=== PATIENT | female | born 1950 | race Caucasian/White ===

== ENCOUNTER → 2016-11-30 | Outpatient (CLI) | payer MEDICARE ==
[2016-11-30 20:00] LABS: MEAN CORPUSCULAR HEMOGLOBIN 25.4 pg (27.0-33.0); MEAN CORPUSCULAR HGB CONC 31.2 g/dl (32.0-36.5); MEAN CORPUSCULAR VOLUME 81.4 fl (80.0-96.0); PLATELET COUNT, AUTOMATED 188 10^3/uL (150-450); WHITE BLOOD COUNT 7.3 10^3/uL (4.0-10.0)
[2016-11-30 20:03] LABS: RED CELL DISTRIBUTION WIDTH 21.5 % (11.5-14.5)
== END ==
LOC: M LRY 16:00
PROVIDERS: ATTEND Internal Medicine Cardiovascular Disease
DX: D64.9 Anemia, unspecified (principal)

== ENCOUNTER 2017-06-10 01:21 | Emergency (ER) | payer MEDICARE ==
[2017-06-10] MEDS ORDERED: NITROGLYCERIN 0.4 MG SUBL TABLET SL (02:15)
[2017-06-10 02:22] LABS: BASO % 0.4 % (0.0-1.0); EOS # 0.1 10^3/uL (0.0-0.50); EOS % 0.8 % (0.0-3.0); HEMATOCRIT 43.7 % (36.0-47.0); IMMATURE GRANULOCYTE % 0.4 % (0-3.0); LYMPH # 1.4 10^3/uL (1.5-4.5); LYMPH % 16.3 % (24.0-44.0); MEAN CORPUSCULAR HEMOGLOBIN 29.4 pg (27.0-33.0); MEAN CORPUSCULAR VOLUME 91.6 fl (80.0-96.0); MONO # 0.6 10^3/uL (0.0-0.8); MONO % 6.7 % (0.0-5.0); NEUTROPHILS # 6.3 10^3/uL (1.8-7.7); NEUTROPHILS % 75.4 % (36.0-66.0); PLATELET COUNT, AUTOMATED 171 10^3/uL (150-450); RED BLOOD COUNT 4.77 10^6/uL (4.00-5.40); RED CELL DISTRIBUTION WIDTH 12.8 % (11.5-14.5); VENOUS BASE EXCESS -4.8 (-2.0-2.0); VENOUS HCO3 25.3 MEQ/L (23.0-27.0); VENOUS O2 SATURATION 60.3 % (60.0-80.0); VENOUS PARTIAL PRESSURE O2 39.3 mmHg (30.0-50.0); VENOUS PH 7.176 UNITS (7.330-7.430); VENOUS STANDARD HCO3 19.7 MEQ/L; VENOUS TOTAL CO2 27.5 MEQ/L (24.0-28.0); WHITE BLOOD COUNT 8.4 10^3/uL (4.0-10.0)
[2017-06-10 02:39] LABS: ANION GAP 8 MEQ/L (8-16); BLOOD UREA NITROGEN 23 MG/DL (7-18); CALCIUM LEVEL 9.1 MG/DL (8.8-10.2); CARBON DIOXIDE LEVEL 29 MEQ/L (21-32); CHLORIDE LEVEL 106 MEQ/L (98-107); CK-MB VALUE MASS < 1.0 NG/ML (<3.6); CPK CREATINE PHOSPHOKINASE 30 U/L (26-192); CREATININE FOR GFR 0.97 MG/DL (0.55-1.30); GLOMERULAR FILTRATION RATE > 60.0 (>45); GLUCOSE, FASTING 178 MG/DL (70-100); MB/CK RELATIVE INDEX 3.33 (< OR =4); POTASSIUM SERUM 4.3 MEQ/L (3.5-5.1); SODIUM LEVEL 143 MEQ/L (136-145); TROPONIN I < 0.02 NG/ML (< 0.10)
[2017-06-10 03:25] LABS: ABG BASE EXCESS -0.6 (-2.0-2.0); ABG HCO3 22.3 MEQ/L (22.0-26.0); ABG O2 SATURATION 96.9 % (95.0-99.0); ABG PARTIAL PRESSURE CO2 31.9 mmHg (35.0-45.0); ABG PARTIAL PRESSURE O2 82.9 mmHg (75.0-100.0); ABG TOTAL CO2 23.3 MEQ/L (23.0-31.0); ABG pH (ARTERIAL) 7.462 UNITS (7.350-7.450)
[2017-06-10] MEDS: GI COCKTAIL 50ML BTL(HYOSCYAMINE/MAALOX/LIDOCAINE VISCOUS)(1:3:1) PO (04:30)
[2017-06-10] MEDS: ONDANSETRON 4MG/2ML VIAL (J2405) IV (05:11)
[2017-06-10 08:52] LABS: TROPONIN I 0.04 NG/ML (< 0.10)
[2017-06-10 08:53] LABS: CK-MB VALUE MASS < 1.0 NG/ML (<3.6); CPK CREATINE PHOSPHOKINASE 28 U/L (26-192); MB/CK RELATIVE INDEX 3.57 (< OR =4)
== END 2017-06-10 10:45 | disposition home or self-care (01) ==
LOC: M ED 01:21
DX: R07.89 Other chest pain (principal); I48.91 Unspecified atrial fibrillation; Z82.49 Family history of ischemic heart disease and other diseases of the circulatory system; Z79.899 Other long term (current) drug therapy; Z79.890 Hormone replacement therapy
CPT/HCPCS: J2405

== ENCOUNTER → 2017-07-12 | Outpatient (CLI) | payer MEDICARE ==
[2017-07-12 17:33] LABS: ANION GAP 8 MEQ/L (8-16); BLOOD UREA NITROGEN 19 MG/DL (7-18); CALCIUM LEVEL 8.9 MG/DL (8.8-10.2); CARBON DIOXIDE LEVEL 25 MEQ/L (21-32); CHLORIDE LEVEL 106 MEQ/L (98-107); CREATININE FOR GFR 0.77 MG/DL (0.55-1.30); GLOMERULAR FILTRATION RATE > 60.0 (>45); GLUCOSE, FASTING 103 MG/DL (70-100); POTASSIUM SERUM 4.5 MEQ/L (3.5-5.1); SODIUM LEVEL 139 MEQ/L (136-145)
[2017-07-12 17:37] LABS: BASO # 0.1 10^3/uL (0.0-0.2); BASO % 0.7 % (0.0-1.0); EOS # 0.2 10^3/uL (0.0-0.50); EOS % 2.1 % (0.0-3.0); HEMATOCRIT 43.6 % (36.0-47.0); HEMOGLOBIN 14.1 g/dl (12.0-15.5); IMMATURE GRANULOCYTE % 0.3 % (0-3.0); LYMPH # 1.6 10^3/uL (1.5-4.5); LYMPH % 21.2 % (24.0-44.0); MEAN CORPUSCULAR HEMOGLOBIN 29.4 pg (27.0-33.0); MEAN CORPUSCULAR HGB CONC 32.3 g/dl (32.0-36.5); MEAN CORPUSCULAR VOLUME 90.8 fl (80.0-96.0); MONO # 0.9 10^3/uL (0.0-0.8); MONO % 11.9 % (0.0-5.0); NEUTROPHILS # 4.8 10^3/uL (1.8-7.7); NEUTROPHILS % 63.8 % (36.0-66.0); PLATELET COUNT, AUTOMATED 210 10^3/uL (150-450); RED CELL DISTRIBUTION WIDTH 13.4 % (11.5-14.5); WHITE BLOOD COUNT 7.5 10^3/uL (4.0-10.0)
== END ==
LOC: M LRY 10:48
DX: R07.9 Chest pain, unspecified (principal); I50.30 Unspecified diastolic (congestive) heart failure; I48.1 Persistent atrial fibrillation
CPT/HCPCS: 80048

== ENCOUNTER 2018-12-17 11:57 | Inpatient (IN) | payer MEDICARE ==
[2018-12-17] VITALS (8 sets, daily range): BP systolic 92–145; BP diastolic 58–88
[~2018-12-17] VITALS: Ht 152.4 cm; Wt 73.2 kg
[~2018-12-17 11:57] MED LIST: LEVO88TA3; LISI10TA4; METF-791; METO1TAB7; OXYB5TAB10; PRAV20TA2; WARF-18
[2018-12-17] MEDS ORDERED: NS 1,000 ML IV SCH (12:46)
[2018-12-17] MEDS ORDERED: METOPROLOL 5 MG/5 ML VIAL IV STA (12:50)
[2018-12-17] MEDS ORDERED: NS 500 ML IV ONE (13:00)
[2018-12-17] MEDS ORDERED: METOPROLOL TART 50 MG TAB PO ONE (13:00)
[2018-12-17] MEDS ORDERED: PANTOPRAZOLE 40MG INJ (PROTONIX) (C9113) IV ONE (13:00)
[2018-12-17] MEDS ORDERED: ONDANSETRON 4MG/2ML VIAL (J2405) IV ONE (13:00)
[2018-12-17 13:35] LABS: BASO % 0.3 % (0.0-1.0); EOS % 0.2 % (0.0-3.0); HEMATOCRIT 21.3 % (36.0-47.0); LYMPH # 0.9 10^3/uL (1.5-5.0); LYMPH % 8.5 % (24.0-44.0); MEAN CORPUSCULAR HGB CONC 31.5 g/dl (32.0-36.5); MEAN CORPUSCULAR VOLUME 95.5 fl (80.0-96.0); MONO # 0.7 10^3/uL (0.0-0.8); MONO % 6.4 % (0.0-5.0); NEUTROPHILS # 8.6 10^3/uL (1.5-8.5); NEUTROPHILS % 83.6 % (36.0-66.0); PLATELET COUNT, AUTOMATED 169 10^3/uL (150-450); RED BLOOD COUNT 2.23 10^6/uL (4.00-5.40); WHITE BLOOD COUNT 10.3 10^3/uL (4.0-10.0)
--- NOTE | 2018-12-17 13:46 | REP ---
Abdomen series: Four views. History: Abdomen pain. Findings: Chest radiograph demonstrates median sternotomy wires, a cardiac valve replacement, and a left atrial appendage clamp overlying the heart. The patient is rotated somewhat to the left. No free subdiaphragmatic air is seen. This is a supine radiograph however. Supine and cross-table lateral views of the abdomen demonstrate moderate stool in the region of the rectum. There is some vascular calcification. There are surgical clips in the right lower abdomen. Small and large bowel loops are normal in caliber. Cross-table lateral view of the upper and lower abdomen shows no evidence of free air. Impression: Moderate stool in the rectum. Otherwise unremarkable bowel gas pattern. Vascular calcification. Electronically Signed by Aditya Santiago MD 12/17/2018 01:38 P
[2018-12-17 13:50] LABS: INR 1.14; PROTHROMBIN TIME 14.3 SECONDS (11.8-14.0)
[2018-12-17 13:55] LABS: HEMOGLOBIN 6.7 g/dl (12.0-15.5)
[2018-12-17 14:12] LABS: ALBUMIN 2.6 GM/DL (3.2-5.2); ALT/SGPT 11 U/L (12-78); BILIRUBIN,DIRECT < 0.1 MG/DL (0.0-0.2); BILIRUBIN,TOTAL 0.2 MG/DL (0.2-1.0); BLOOD UREA NITROGEN 23 MG/DL (7-18); CALCIUM LEVEL 8.7 MG/DL (8.8-10.2); CARBON DIOXIDE LEVEL 26 MEQ/L (21-32); CHLORIDE LEVEL 105 MEQ/L (98-107); CREATININE FOR GFR 0.92 MG/DL (0.55-1.30); GLOMERULAR FILTRATION RATE > 60.0 (>39); GLUCOSE, FASTING 165 MG/DL (70-100); LIPASE 80 U/L (73-393); POTASSIUM SERUM 4.6 MEQ/L (3.5-5.1); SODIUM LEVEL 138 MEQ/L (136-145); TOTAL PROTEIN 6.3 GM/DL (6.4-8.2)
[2018-12-17] MEDS ORDERED: POTA10TA17 PO (14:29)
[2018-12-17] MEDS ORDERED: METO1TAB33 PO (14:29)
[2018-12-17] MEDS ORDERED: LEVO88TA24 PO (14:29)
[2018-12-17] MEDS ORDERED: LISI10TA4 PO (14:29)
[2018-12-17] MEDS ORDERED: ATOR40TA75 PO (14:29)
[2018-12-17] MEDS ORDERED: METO1TAB7 PO (14:29)
[2018-12-17] MEDS ORDERED: PATIENT COMMENT (14:29)
[2018-12-17] MEDS ORDERED: FURO40TA2 PO (14:29)
[2018-12-17] MEDS ORDERED: BUSP5TA PO (14:29)
[2018-12-17] MEDS ORDERED: WARF-18 PO (14:29)
[2018-12-17] MEDS ORDERED: METF-791 PO (14:29)
[2018-12-17] MEDS ORDERED: ASPI81TA26 PO (14:29)
[2018-12-17] MEDS ORDERED: GLUCAGON FOR INJ 1 MG VIAL (J1610) SC PRN (16:00)
[2018-12-17] MEDS ORDERED: DEXTROSE 50% 50 ML SYRINGE IV PRN (16:00)
[2018-12-17] MEDS ORDERED: GLUCOSE 4 GM CHEW TABLET PO PRN (16:00)
--- NOTE | 2018-12-17 16:52 | HPE ---
DATE OF ADMISSION: 12/17/2018 PRINCIPAL DIAGNOSIS: Rectal bleeding, atrial fibrillation, rapid ventricular response. PRIMARY CARE PROVIDER: [facility]. VALVE SEATER OPERATOR: Dr. Cruz HISTORY: Moon Matias is a 68-year-old patient of [facility]. She stopped talking all of her medications several weeks ago claiming that they would not be refilled unless she had some labs done that she could not afford. She therefore stopped her anticoagulant, diabetes, and blood pressure medications. She presents to the emergency room with rectal bleeding so she has been bleeding for a few days. She is significantly anemic with a hemoglobin of 6 and denies abdominal pain. She says she feels weak and light headed and short of breath when she exerts herself. When in the emergency room she has atrial fibrillation with rapid ventricular response. PAST MEDICAL HISTORY: Atrial fibrillation followed by Dr. Cruz from cardiology, hypertension, type 2 diabetes, history of hypothyroidism, chronic anxiety. HOME MEDICATIONS: Currently not taking any, previously was aspirin 81 mg daily, atorvastatin 40 mg daily, BuSpar 5 mg twice a day, furosemide 40 mg daily, levothyroxine 88 mcg daily, lisinopril 10 mg daily, metformin ER 1000 mg daily, Toprol XL 100 mg in the morning and 50 mg at bedtime, potassium chloride 10 mEq daily, warfarin 2.5 mg 6 days a week. ALLERGIES: None known. CODE STATUS: She is DO NOT RESUSCITATE DO NOT INTUBATE. She thought she had a copy of this scanned into the hospital record but there is none available. She is going to get a copy of her MOLST form brought in. REVIEW OF SYSTEMS: No abdominal pain, fevers or chills, chest pain, orthopnea, epistaxis, urinary bleeding. PHYSICAL EXAMINATION: 102/63, pulse 125, respiratory 18, 100% Oxygen saturation on room air. General: Awake, conversant in no distress. HEENT: Pupils equal round and active light. Oropharynx is benign. NECK: No masses. HEART: Irregular rate and rhythm, tachycardiac 120-140, 1/6 systolic ejection murmur. ABDOMEN: Soft and nontender. There are no masses. RECTAL EXAM: Showed laron blood per ER staff. EXTREMITIES: Moves arms and legs with equal strength. LABS: White count 10.3, hemoglobin 6.7, MCV 95, platelets 169, sodium 138, potassium 4.6, BUN 23, creatinine 0.9, glucose 165, INR 1.1. Abdominal x-ray non-revealing. EKG showed atrial fibrillation/flutter rate 150. IMPRESSION: 1. Atrial fibrillation/flutter rapid ventricular response secondary to noncompliance with her medications. She will be admitted to the PCU bed and put on telemetry. IV by mouth with metoprolol was been ordered. Hold anticoagulant in face of the rectal bleeding. Serial enzymes have been ordered to rule out stress induced myocardial ischemia. Echocardiogram has been ordered. Consider consulting Dr. Cruz who is her outpatient hr shared services consultant. 2. Rectal bleeding. Consultation placed for gastroenterology. Hold anticoagulant for now. She is being transfused 2 units of packed red blood cells every 6 hours CBC have been ordered. Last colonoscopy was approximately 10 years ago done at [facility]. 3. Type 2 diabetes, sliding scale insulin coverage. Hemoglobin was ordered. Recommend restarting Metformin upon discharge. 4. Hypertensive heart disease. Blood pressure is a little low right now, probably from the rectal bleeding. She received metoprolol in the emergency room for rate control. Hold Lisinopril for now. 5. Hyperlipidemia. Restart her statin therapy. 6. Chronic anxiety. We will hold off on the BuSpar for now. She is not showing any significant anxiety at this time. 7. Noncompliance. Risks of non-compliance with her medical therapy were discussed and she understood this. 8. Hypothyroidism. Free T4, TSH ordered. Restart Levothyroxine 88 mcg daily. CODE STATUS: Per her request she is DO NOT RESUSCITATE DO NOT INTUBATE and she will bring a copy of her MOLST form says her sister has it at home.
[2018-12-17] MEDS: METOPROLOL TART 25 MG TABLET PO SCH ×2 (18:27→23:36)
[2018-12-17 18:29] LABS: FERRITIN 120 NG/ML (8-252); FOLATE 10.2 NG/ML; FREE T4 0.89 NG/DL (0.76-1.46); IRON (FE) 44 UG/DL (50-170); PERCENT SATURATION 16.7 % (13.2-45.0); TOTAL IRON BINDING CAPACITY 264 UG/DL (250-450); VITAMIN B12 LEVEL 486 PG/ML
[2018-12-17] MEDS: HumaLOG INSULIN (NovoLOG) PER UNIT SC SCH ×2 (19:39→20:56)
--- NOTE | 2018-12-17 20:22 | ECGEPIP ---
[facility] - ED Test Date: 2018-12-17 Pat Name: RACIEL FREEMAN Department: Room: - Gender: Female Wind Project Manager: TAV[place] : 1950 Requested By: Camron Serna Order Number: [id number] Reading MD: Camron Wallis Measurements Intervals [place] Rate: 139 P: ID: 0 QRS: 53 QRSD: 86 T: -42 QT: 224 QTc: 341 Interpretive Statements ATRIAL FIBRILLATION WITH RAPID VENTRICULAR RESPONSE NONSPECIFIC ST & T-WAVE ABNORMALITY RATE CHANGE COMPARED TO 06/10/17 Electronically Signed on 12-17-2018 20:21:49 EST by Camron Wallis
[2018-12-17 21:32] LABS: HEMATOCRIT 27.2 % (36.0-47.0); HEMOGLOBIN 8.8 g/dl (12.0-15.5); MEAN CORPUSCULAR HEMOGLOBIN 30.1 pg (27.0-33.0); MEAN CORPUSCULAR HGB CONC 32.4 g/dl (32.0-36.5); MEAN CORPUSCULAR VOLUME 93.2 fl (80.0-96.0); PLATELET COUNT, AUTOMATED 184 10^3/uL (150-450); RED BLOOD COUNT 2.92 10^6/uL (4.00-5.40); WHITE BLOOD COUNT 11.8 10^3/uL (4.0-10.0)
[2018-12-17 21:56] LABS: CK-MB VALUE MASS < 1.0 NG/ML (<3.6); CPK CREATINE PHOSPHOKINASE 15 U/L (26-192); MB/CK RELATIVE INDEX 6.67 (< OR =4); TROPONIN I 0.03 NG/ML (< 0.10)
--- NOTE | 2018-12-17 23:13 | CR.PDOC ---
General Date of Consultation: Dec 17, 2018 Referring Provider: Jairo Anderson MD Attending Physician: SHABANA BECKER MD Consultation Primary physician/ hospitalist: Dr. Anderson. Reason for consult: Rectal bleeding. HPI: 68-year-old female patient with HTN, DM type 2, hypothyroidism, atrial fibrillation on anticoagulation with warfarin (ran out of medication and not taking it for past 2 weeks, followed by Dr. Cruz), presented to ER for complaints of rectal bleeding. GI was consulted for the same. Patient reports the symptoms started last Saturday, when she had atleast two large bloody bowel movement which stopped by Saturday and then had another episodes today in morning. Patient reports having minimal abdominal discomfort prior to bowel movements. Patient reports noticing profuse bleeding with blood clots. Due to felling very weak patient called EMS and came to ER. Patient reports her baseline bowel habits include sometimes hard stools every 2- 3 days. As patient recently ran out of medication Coumadin, she started taking aspiring 81 mg since last two weeks which she stopped since Saturday when she had bleeding. Pertinent negative GI symptoms: Patient denies nausea, vomiting,, abdominal pain, loss of appetite, early satiety or unintentional weight loss. No history of hematemesis or Melena in past. Review of Systems: GI: as stated above CVS: No chest pain, No palpitations, bilateral leg swelling. RS: No Shortness of breath, No Wheezing, no cough CORPORATE RISK ANALYST: No dizziness, No motor weakness, No sensory problems Hematology: No bruising, No gum bleeding, Musculoskeletal: No joint pain, ambulating well. Skin: No rash : No hematuria, No burning sensation of the urine ENT: No ear discharge/ pain, No dysphagia. Eyes: No photophobia. Home medications: reviewed. Antithrombotic agents Coumadin, ASA Medical h/o: As above. Surgical h/o: None on abdomen. Social h/o: Alcohol- Denies , tobacco- Denies , IVDA/ drugs- Denies. Family h/o of GI cancers non contributory. Prior Endoscopies: Patient report recently having screening Colonoscopy outside [facility], around 2-3 years ago and it was normal as per patient and was told to repeat in 10 yes). Prior GI evaluation: none in [facility]. Exam: Vitals: reviewed General: Alert and oriented x 3, not in distress HEENT: noted conjunctival pallor, no icterus. Normal oropharynx, NO cervical lymph nodes. Chest: symmetric with bilateral clear air entry, CVS: S1, S2 heard, normal, no murmurs . Abdomen: non-distended, obese, epigastric laparoscopic surgical scars, soft, non-tender, no palpable masses, normal bowel sounds heard. Rectal exam: Patient refused. Extremities: 2+ pitting pedal edema, pulses palpable. CORPORATE RISK ANALYST: no focal motor or sensory deficits. Moves all extremities Skin: scaling of the skin ( on legs). Labs: reviewed. Impression: - Acutte onset painless rectal bleeding with blood clots and drop in Hemoglobins levels DDXDiverticular bleeding vs AVM bleeding vs less likely Colon polyps. Recommendations: - Patient educated about the test results, possible differential diagnoses and All questions answered. - Monitor H/H and transfuse as needed to keep hemoglobin 8-9 gm/ dL. - Agree with holding anticoagulation in view of active e bleeding. - Clear liquid diet and take miralax daily PRN. - Patient is educated about the need for urgent Colonoscopy,, indications, risks (bleeding, perforation, infection, hypotension, respiratory depression, allergy, need for endotracheal intubation, surgery, colostomy, cardiac arrest, even ), benefits, limitations (e.g., missing a lesion), and all other al ternatives (including no intervention) . Patient verbalized understanding and refused the procedure. She want to monitor her cell counts and depending on clinical status will revisit this. - If persistent or severe rectal bleeding consider IR embolization. Plan of care discussed with patient and primary team. Patient verbalized understanding and agreed with the plan. Vital Signs/I&O Vital Signs Date Time Temp Pulse Resp B/P (MAP) Pulse Ox O2 Delivery O2 Flow Rate FiO2 12/17/18 20:00 98.2 97 16 92/67 (75) 98 Room Air Laboratory Data Labs 24H Laboratory Tests 2 12/17/18 13:23: Immature Granulocyte % (Auto) 1.0, Neutrophils (%) (Auto) 83.6H, Lymphocytes (%) (Auto) 8.5L, Monocytes (%) (Auto) 6.4H, Eosinophils (%) (Auto) 0.2, Basophils (%) (Auto) 0.3, Neutrophils # (Auto) 8.6H, Lymphocytes # (Auto) 0.9L, Monocytes # (Auto) 0.7, Eosinophils # (Auto) 0.0, Basophils # (Auto) 0.0, Reticulocyte # (auto) 56.3, Nucleated Red Blood Cells % (auto) 0.0, Percent Reticulocyte Count 2.5H, Reticulocyte Hemoglobin Equivalent 30.7, Prothrombin Time 14.3H, Prothromb Time International Ratio 1.14, Anion Gap 7L, Glomerular Filtration Rate > 60.0, Calcium Level 8.7L, Iron Level 44L, Total Iron Binding Capacity 264, Transferrin % Saturation 16.7, Ferritin 120, Total Bilirubin 0.2, Direct Bilirubin < 0.1, Aspartate Amino Transf (AST/SGOT) 14, Alanine Aminotransferase (ALT/SGPT) 11L, Alkaline Phosphatase 93, Total Protein 6.3L, Albumin 2.6L, Albumin/Globulin Ratio 0.70L, Lipase 80, Vitamin B12 Level 486, Folate 10.2, Thyroid Stimulating Hormone (TSH) 11.800H, Free Thyroxine 0.89 12/17/18 18:15: Bedside Glucose (Misc Panel) 121H 12/17/18 20:54: Bedside Glucose (Misc Panel) 116H 12/17/18 21:19: Nucleated Red Blood Cells % (auto) 0.0, Total Creatine Kinase 15L, Creatine Kinase MB < 1.0, Creatine Kinase MB Relative Index 6.67H, Troponin I 0.03 CBC/BMP Laboratory Tests 12/17/18 13:23 12/17/18 21:19 Allergies Coded Allergies: No Known Allergies (Unverified , 06/10/17) Home Medications Scheduled Aspirin (Aspirin EC) 81 Mg Tablet.dr, 81 MG PO DAILY, (Reported) Atorvastatin Calcium (Atorvastatin Calcium) 40 Mg Tablet, 40 MG PO DAILY, (Reported) Buspirone HCl (Buspirone HCl) 5 Mg Tablet, 5 MG PO BID, (Reported) Furosemide (Furosemide) 40 Mg Tablet, 40 MG PO DAILY, (Reported) Levothyroxine Sodium (Levoxyl) 88 Mcg Tablet, 88 MCG PO DAILY, (Reported) Lisinopril (Lisinopril) 10 Mg Tablet, 10 MG PO DAILY, (Reported) Metformin HCl (Metformin HCl ER) 500 Mg Tab.er.24h, 1,000 MG PO DAILY, (Reported) Metoprolol Succinate (Metoprolol Succinate) 100 Mg Tab.er.24h, 100 MG PO QA, (Reported) Metoprolol Succinate (Metoprolol Succinate) 50 Mg Tab.er.24h, 50 MG PO QHS, (Reported) Potassium Chloride (Potassium Chloride) 10 Meq Tab.er.prt, 10 MEQ PO DAILY, (Reported) Warfarin Sodium (Warfarin Sodium) 2.5 Mg Tablet, 2.5 MG PO 6XWK, (Reported) EVERY DAY EXCEPT SATURDAY - DOES NOT TAKE ANY OF SATURDAY Miscellaneous Medications [Patient Comment] , (Reported) PATIENT HAS NOT TAKEN ANY MEDICATIONS IN ABOUT A MONTH DUE TO NO REFILLS. SHABANA BECKER MD Dec 17, 2018 23:13
[2018-12-18] VITALS: BP 116/58
[2018-12-18 03:27] LABS: HEMATOCRIT 24.7 % (36.0-47.0); HEMOGLOBIN 8.1 g/dl (12.0-15.5); MEAN CORPUSCULAR HGB CONC 32.8 g/dl (32.0-36.5); MEAN CORPUSCULAR VOLUME 91.5 fl (80.0-96.0); PLATELET COUNT, AUTOMATED 161 10^3/uL (150-450); WHITE BLOOD COUNT 10.1 10^3/uL (4.0-10.0)
[2018-12-18] MEDS ORDERED: NYSTATIN 100,000 UNITS/GM TOPICAL PWD 15 GM TOP PRN (03:45)
[2018-12-18 03:55] LABS: BLOOD UREA NITROGEN 18 MG/DL (7-18); CARBON DIOXIDE LEVEL 25 MEQ/L (21-32); CHLORIDE LEVEL 108 MEQ/L (98-107); CK-MB VALUE MASS < 1.0 NG/ML (<3.6); CPK CREATINE PHOSPHOKINASE 15 U/L (26-192); CREATININE FOR GFR 0.84 MG/DL (0.55-1.30); GLOMERULAR FILTRATION RATE > 60.0 (>39); GLUCOSE, FASTING 107 MG/DL (70-100); MB/CK RELATIVE INDEX 6.67 (< OR =4); POTASSIUM SERUM 3.9 MEQ/L (3.5-5.1); SODIUM LEVEL 140 MEQ/L (136-145); TROPONIN I 0.03 NG/ML (< 0.10)
[2018-12-18 04:00] VITALS: BP 96/62
[2018-12-18] MEDS: LEVOTHYROXINE 88MCG TABLET (0.088 MG) PO SCH (05:14)
[2018-12-18] MEDS: METOPROLOL TART 25 MG TABLET PO SCH ×3 (05:14→17:11)
--- NOTE | 2018-12-18 07:20 | ECHO ---
DATE OF PROCEDURE: 12/17/2018 DATE OF : 1950 AGE: 68 REFERRING PROVIDER: Dr. Jairo Anderson REASON FOR THE STUDY: Cardiac arrhythmias. 2-D MEASUREMENTS: IVS: 1.1 cm LV: 3.6 cm LVPW: 0.99 cm LA: 4.6 cm Aorta: 2.8 cm RV: 3.4 cm DOPPLER MEASUREMENTS: Peak velocity across the aortic valve: 1.6 m/s Peak velocity across the LVOT: 0.55 m/s Mitral E: 0.95 Maximum tricuspid valve velocity: 2.6 m/s 2-D COMMENTS: 1. Normal left ventricular size and wall thickness with a mildly depressed global left ventricular systolic function. There was global hypokinesis with an estimated left ventricular ejection fraction (LVEF) of 40-45%. 2. Mildly enlarged left atrium. Moderately dilated right atrium. The right ventricle appeared to be mildly enlarged in limited views and the right ventricular free wall may be hypokinetic. 3. The atrial septum appeared to be normal without evidence of defect or shunt. 4. Normal aortic root. 5. Trace pericardial effusion noted, no evidence of cardiac tamponade. 6. Moderately calcified aortic valve with mildly restricted leaflet motion. Moderately calcified mitral annulus with normal anterior mitral valve leaflet motion. Normal tricuspid valve and pulmonic valve. The proximal pulmonary artery branches were not well visualized. 7. The inferior vena cava was not well visualized. DOPPLER: Detects mild aortic regurgitation, mild mitral regurgitation, moderate tricuspid regurgitation, and mild pulmonic regurgitation. The calculated pulmonary artery systolic pressure varied between 30-40 mmHg, but may be underestimated. Pulmonary artery systolic pressure is most likely higher. Assessment of the left ventricular diastolic function was limited. IMPRESSION: 1. Mildly depressed global left ventricular systolic function with diffuse hypokinesis. Assessment of the left ventricular diastolic function was limited in view of the underlying arrhythmias. 2. Aortic valve sclerosis with mild aortic regurgitation and trivial aortic stenosis. Could not rule out more severe aortic stenosis. 3. Mitral annulus calcification with mildly enlarged left atrium and mild mitral regurgitation. 4. Moderate tricuspid regurgitation with dilated right heart chambers and mild pulmonary hypertension. The calculated pulmonary artery systolic pressure is most likely under estimated. 5. Mild pulmonic regurgitation. 6. Trace pericardial effusion noted, no evidence of cardiac tamponade.
[2018-12-18] MEDS: HumaLOG INSULIN (NovoLOG) PER UNIT SC SCH ×4 (07:30→20:18)
[2018-12-18 08:00] VITALS: BP 106/62
[2018-12-18] MEDS: ATORVASTATIN 20 MG TAB PO SCH (08:35)
[2018-12-18 10:00] LABS: HEMATOCRIT 26.2 % (36.0-47.0); HEMOGLOBIN 8.6 g/dl (12.0-15.5); MEAN CORPUSCULAR HEMOGLOBIN 30.1 pg (27.0-33.0); MEAN CORPUSCULAR HGB CONC 32.8 g/dl (32.0-36.5); MEAN CORPUSCULAR VOLUME 91.6 fl (80.0-96.0); PLATELET COUNT, AUTOMATED 193 10^3/uL (150-450); RED BLOOD COUNT 2.86 10^6/uL (4.00-5.40); WHITE BLOOD COUNT 9.5 10^3/uL (4.0-10.0)
[2018-12-18 12:00] VITALS: BP 94/56
--- NOTE | 2018-12-18 14:03 | IPNPDOC ---
Date Seen The patient was seen on 12/18/18. Progress Note SUBJECTIVE: 88-year-old female with past medical history of A. fib, diabetes mellitus, hypertension, hypothyroidism is admitted for A. fib with RVR and she had bleed. Reportedly, she had stopped taking all of her medications because her PCP did not give her any refills due to poor follow-up/lack of blood work done by the patient. She presented with lower GI bleeding, was invited by GI who parminder mmended colonoscopy but the patient refused it due to unwillingness to drink bowel regimen. Patient received 2 units of PRBC yesterday, H&H currently stable, no bloody vomitus overnight, had 1 small bowel movement in the morning with minimal bright red blood. She is currently asymptomatic, without any complaint at this time. Denies any shortness of breath, chest pain, nausea, vomiting or abdominal pain. 10 point review of system was negative except for above PHYSICAL EXAMINATION: VITAL SIGNS: Please see below. GENERAL: No distress, frail HEENT: Normocephalic, atraumatic, moist mucous membranes NECK: Supple CARDIOVASCULAR EXAMINATION: Irregularly irregular, tachycardic RESPIRATORY EXAMINATION: Clear to auscultation, no wheezing ABDOMINAL EXAMINATION: Soft, nontender, nondistended, positive bowel sounds EXTREMITIES: Range of motion intact SKIN: No rash NEUROLOGICAL EXAMINATION: Alert and oriented 3, no focal deficits PSYCHIATRIC EXAMINATION: Calm and cooperative LABORATORY DATA, IMAGING STUDIES, MICROBIOLOGY: Please see below. DVT prophylaxis ordered?: No ASSESSMENT AND PLAN: 68-year-old female with past medical history of A. fib (on Coumadin), hypertension, diabetes and hypothyroidism was admitted for GI bleed and A. fib with RVR. PROBLEMS: 1. GI bleed: Likely lower GI tract, evaluated by GI, colonoscopy recommended. Patient refused. Status post 2 units PRBC yesterday, H&H stable, will continue to trend, the patient shows signs of active hemorrhage and/or H&H downtrending, will consider coil embolization by IR. 2. A. fib:. Hold Coumadin, continue metoprolol for rate control. 3. Diabetes mellitus:. Sliding scale insulin with fingersticks before every meal see and at bedtime. 4. Hypothyroidism: Continue levothyroxine. 5. Hyperlipidemia: Continue atorvastatin. DVT prophylaxis: SCDs. GI prophylaxis: Protonix VS, I&O, 24H, Fishbone Vital Signs/I&O Vital Signs Date Time Temp Pulse Resp B/P (MAP) Pulse Ox O2 Delivery O2 Flow Rate FiO2 12/18/18 12:00 98.1 121 19 94/56 (69) 100 Room Air I&O- Last 24 Hours up to 6 AM 12/18/18 06:00 Intake Total 2730 ml Output Total 0 ml Balance 2730 ml Laboratory Data 24H LABS Laboratory Tests 2 12/17/18 18:15: Bedside Glucose (Misc Panel) 121H 12/17/18 20:54: Bedside Glucose (Misc Panel) 116H 12/17/18 21:19: Nucleated Red Blood Cells % (auto) 0.0, Total Creatine Kinase 15L, Creatine Kinase MB < 1.0, Creatine Kinase MB Relative Index 6.67H, Troponin I 0.03 12/18/18 03:18: Nucleated Red Blood Cells % (auto) 0.0, Total Creatine Kinase 15L, Creatine Kinase MB < 1.0, Creatine Kinase MB Relative Index 6.67H, Troponin I 0.03, Anion Gap 7L, Glomerular Filtration Rate > 60.0, Calcium Level 8.0L 12/18/18 09:24: Nucleated Red Blood Cells % (auto) 0.0 12/18/18 12:29: Bedside Glucose (Misc Panel) 104 CBC/BMP Laboratory Tests 12/17/18 21:19 12/18/18 03:18 12/18/18 09:24 CASSANDRA FARRAR MD Dec 18, 2018 14:03
[2018-12-18 14:49] LABS: HEMATOCRIT 25.4 % (36.0-47.0); HEMOGLOBIN 8.2 g/dl (12.0-15.5); MEAN CORPUSCULAR HEMOGLOBIN 29.9 pg (27.0-33.0); MEAN CORPUSCULAR HGB CONC 32.3 g/dl (32.0-36.5); MEAN CORPUSCULAR VOLUME 92.7 fl (80.0-96.0); PLATELET COUNT, AUTOMATED 144 10^3/uL (150-450); RED BLOOD COUNT 2.74 10^6/uL (4.00-5.40); WHITE BLOOD COUNT 10.6 10^3/uL (4.0-10.0)
[2018-12-18 16:00] VITALS: BP 92/54
[2018-12-18 16:01] LABS: CK-MB VALUE MASS < 1.0 NG/ML (<3.6); CPK CREATINE PHOSPHOKINASE 13 U/L (26-192); MB/CK RELATIVE INDEX 7.69 (< OR =4); TROPONIN I < 0.02 NG/ML (< 0.10)
[2018-12-18] MEDS: PANTOPRAZOLE 40MG TAB (PROTONIX) PO SCH (17:21)
[2018-12-18 20:00] VITALS: BP 132/73
[2018-12-18 21:19] LABS: HEMATOCRIT 23.3 % (36.0-47.0); HEMOGLOBIN 7.7 g/dl (12.0-15.5); MEAN CORPUSCULAR HEMOGLOBIN 30.6 pg (27.0-33.0); MEAN CORPUSCULAR VOLUME 92.5 fl (80.0-96.0); PLATELET COUNT, AUTOMATED 149 10^3/uL (150-450); RED BLOOD COUNT 2.52 10^6/uL (4.00-5.40); WHITE BLOOD COUNT 9.6 10^3/uL (4.0-10.0)
[2018-12-19] VITALS (9 sets, daily range): BP systolic 88–137; BP diastolic 51–80
[2018-12-19] MEDS: METOPROLOL TART 25 MG TABLET PO SCH ×5 (00:07→23:39)
[2018-12-19 04:32] LABS: HEMATOCRIT 22.9 % (36.0-47.0); HEMOGLOBIN 7.3 g/dl (12.0-15.5); MEAN CORPUSCULAR HEMOGLOBIN 29.9 pg (27.0-33.0); MEAN CORPUSCULAR HGB CONC 31.9 g/dl (32.0-36.5); MEAN CORPUSCULAR VOLUME 93.9 fl (80.0-96.0); PLATELET COUNT, AUTOMATED 150 10^3/uL (150-450); RED BLOOD COUNT 2.44 10^6/uL (4.00-5.40); WHITE BLOOD COUNT 8.9 10^3/uL (4.0-10.0)
[2018-12-19 04:58] LABS: BLOOD UREA NITROGEN 17 MG/DL (7-18); CALCIUM LEVEL 7.7 MG/DL (8.8-10.2); CARBON DIOXIDE LEVEL 27 MEQ/L (21-32); CHLORIDE LEVEL 110 MEQ/L (98-107); CREATININE FOR GFR 0.87 MG/DL (0.55-1.30); GLOMERULAR FILTRATION RATE > 60.0 (>39); GLUCOSE, FASTING 91 MG/DL (70-100); MAGNESIUM LEVEL 1.9 MG/DL (1.8-2.4); POTASSIUM SERUM 3.7 MEQ/L (3.5-5.1); SODIUM LEVEL 141 MEQ/L (136-145)
[2018-12-19] MEDS: LEVOTHYROXINE 88MCG TABLET (0.088 MG) PO SCH (05:12)
[2018-12-19] MEDS: HumaLOG INSULIN (NovoLOG) PER UNIT SC SCH ×4 (07:30→19:35)
[2018-12-19 09:32] LABS: HEMATOCRIT 26.2 % (36.0-47.0); HEMOGLOBIN 8.7 g/dl (12.0-15.5); MEAN CORPUSCULAR HEMOGLOBIN 31.1 pg (27.0-33.0); MEAN CORPUSCULAR HGB CONC 33.2 g/dl (32.0-36.5); MEAN CORPUSCULAR VOLUME 93.6 fl (80.0-96.0); PLATELET COUNT, AUTOMATED 150 10^3/uL (150-450); WHITE BLOOD COUNT 8.9 10^3/uL (4.0-10.0)
[2018-12-19] MEDS: PANTOPRAZOLE 40MG TAB (PROTONIX) PO SCH (10:22)
[2018-12-19] MEDS: ATORVASTATIN 20 MG TAB PO SCH (10:22)
--- NOTE | 2018-12-19 13:11 | IPNPDOC ---
Date Seen The patient was seen on 12/19/18. Progress Note SUBJECTIVE: 88-year-old female with past medical history of A. fib, diabetes mellitus, hypertension, hypothyroidism is admitted for A. fib with RVR and she had bleed. Reportedly, she had stopped taking all of her medications because her PCP did not give her any refills due to poor follow-up/lack of blood work done by the patient. She presented with lower GI bleeding, was invited by GI who parminder mmended colonoscopy but the patient refused it due to unwillingness to drink bowel regimen. Patient received 2 units of PRBC yesterday, H&H currently stable, no bloody vomitus overnight, had 1 small bowel movement in the morning with minimal bright red blood. She is currently asymptomatic, without any complaint at this time. Denies any shortness of breath, chest pain, nausea, vomiting or abdominal pain. December 19, 2018 Patient has not had any bowel movements since yesterday, H&H downtrending overnight, received 1 unit of PRBC earlier today. Patient continues to refuse colonoscopy due to unwillingness to drink bowel prep. She reports feeling fatigued, short of breath and overall malaise. She denies any chest pain, nausea, vomiting, abdominal pain or diarrhea. 10 point review of system was negative except for above PHYSICAL EXAMINATION: VITAL SIGNS: Please see below. GENERAL: No distress, frail HEENT: Normocephalic, atraumatic, moist mucous membranes NECK: Supple CARDIOVASCULAR EXAMINATION: Irregularly irregular, tachycardic RESPIRATORY EXAMINATION: Clear to auscultation, no wheezing ABDOMINAL EXAMINATION: Soft, nontender, nondistended, positive bowel sounds EXTREMITIES: Range of motion intact SKIN: No rash NEUROLOGICAL EXAMINATION: Alert and oriented 3, no focal deficits PSYCHIATRIC EXAMINATION: Calm and cooperative LABORATORY DATA, IMAGING STUDIES, MICROBIOLOGY: Please see below. DVT prophylaxis ordered?: No ASSESSMENT AND PLAN: 68-year-old female with past medical history of A. fib (on Coumadin), hypertension, diabetes and hypothyroidism was admitted for GI bleed and A. fib with RVR. PROBLEMS: 1. GI bleed: Was taking aspirin 81 mg daily for 2 weeks prior to bleed, likely lower GI tract, evaluated by GI, colonoscopy recommended, patient refused because she doesn't want to drink bowel prep. Status post 2 units PRBC yesterday, patient is downtrending overnight, received another unit of PRBC earlier today. Case discussed with Dr. Wu for possibility of coil embolization, she recommends obtaining CTA to locate source of bleed, ordered, further management based on CT results. We'll trend H&H and transfuse as needed. 2. A. fib:. Hold Coumadin, continue metoprolol for rate control. 3. Diabetes mellitus: Sliding scale insulin with fingersticks before every meal see and at bedtime. 4. Hypothyroidism: Continue levothyroxine. 5. Hyperlipidemia: Continue atorvastatin. DVT prophylaxis: SCDs. GI prophylaxis: Protonix VS, I&O, 24H, Fishbone Vital Signs/I&O Vital Signs Date Time Temp Pulse Resp B/P (MAP) Pulse Ox O2 Delivery O2 Flow Rate FiO2 12/19/18 08:00 97.9 98 18 93/51 100 Room Air I&O- Last 24 Hours up to 6 AM 12/19/18 05:59 Intake Total 240 ml Output Total 0 ml Balance 240 ml Laboratory Data 24H LABS Laboratory Tests 2 12/18/18 14:33: Nucleated Red Blood Cells % (auto) 0.0 12/18/18 15:11: Total Creatine Kinase 13L, Creatine Kinase MB < 1.0, Creatine Kinase MB Relative Index 7.69H, Troponin I < 0.02# 12/18/18 16:52: Bedside Glucose (Misc Panel) 117H 12/18/18 20:08: Bedside Glucose (Misc Panel) 159H 12/18/18 21:09: Nucleated Red Blood Cells % (auto) 0.0 12/19/18 04:22: Nucleated Red Blood Cells % (auto) 0.0, Anion Gap 4L, Glomerular Filtration Rate > 60.0, Calcium Level 7.7L, Magnesium Level 1.9 12/19/18 09:17: Nucleated Red Blood Cells % (auto) 0.0 12/19/18 11:53: Bedside Glucose (Misc Panel) 119H CBC/BMP Laboratory Tests 12/18/18 14:33 12/18/18 21:09 12/19/18 04:22 12/19/18 09:17 CASSANDRA FARRAR MD Dec 19, 2018 13:11
[2018-12-19] MEDS ORDERED: ISOVUE-370 76% 100ML VIAL (Q9967) As Ordered ONE (13:39)
--- NOTE | 2018-12-19 14:59 | REP ---
CT ANGIOGRAPHY ABDOMEN AND PELVIS WITH IV CONTRAST: HISTORY: GI bleeding. Question locate bleed. No comparison CT study. 100 mL of intravenous Isovue 370 is administered. Arterial phase and delayed phase imaging is acquired. CT FINDINGS: Preliminary digital bogger operator radiograph demonstrates an unremarkable bowel gas pattern. There are clips in the right lower abdomen and median sternotomy wires are present. There are very small bilateral pleural effusions. Cardiomegaly is observed. There is a small hiatal hernia. Liver and spleen are unremarkable. No pancreatic abnormality is seen. The gallbladder is surgically absent. Kidneys enhance symmetrically. There is left colonic diverticulosis. There is no CT evidence of diverticulitis. The patient is status post appendectomy. The suprarenal and infrarenal abdominal aorta are normal in caliber but heavily calcified. The celiac axis and SMA origins are patent. There is calcific plaquing and stenosis at the SMA origin. The inferior mesenteric artery is patent at its origin. Singular nonstenotic renal arteries are visible. There is no evidence of abnormal extravasation or pooling of arterial opacified blood or abnormal intraluminal attenuation in the small or large bowel loops on either CT acquisition. Uterus is surgically absent. No abdominal wall defect is seen. Urinary bladder is unremarkable. IMPRESSION: Fairly extensive vascular calcification with calcific plaquing and narrowing at the origin of the SMA. Left colonic diverticulosis. No evidence of abnormal vascular pooling or vascular malformation to suggest a GI bleeding source. Electronically Signed by Aditya Santiago MD 12/19/2018 03:00 P
[2018-12-19 16:03] LABS: HEMATOCRIT 27.2 % (36.0-47.0); HEMOGLOBIN 8.7 g/dl (12.0-15.5); MEAN CORPUSCULAR HEMOGLOBIN 29.8 pg (27.0-33.0); MEAN CORPUSCULAR VOLUME 93.2 fl (80.0-96.0); PLATELET COUNT, AUTOMATED 151 10^3/uL (150-450); RED BLOOD COUNT 2.92 10^6/uL (4.00-5.40); WHITE BLOOD COUNT 8.2 10^3/uL (4.0-10.0)
[2018-12-19] MEDS: busPIRone 5 MG TAB PO SCH (23:03)
[2018-12-20] VITALS: BP 106/62
[2018-12-20 04:00] VITALS: BP 102/59
[2018-12-20] MEDS: METOPROLOL TART 25 MG TABLET PO SCH ×4 (05:53→23:11)
[2018-12-20] MEDS: LEVOTHYROXINE 88MCG TABLET (0.088 MG) PO SCH (05:56)
[2018-12-20 06:05] LABS: HEMATOCRIT 26.1 % (36.0-47.0); HEMOGLOBIN 8.4 g/dl (12.0-15.5); MEAN CORPUSCULAR HEMOGLOBIN 29.8 pg (27.0-33.0); MEAN CORPUSCULAR HGB CONC 32.2 g/dl (32.0-36.5); MEAN CORPUSCULAR VOLUME 92.6 fl (80.0-96.0); PLATELET COUNT, AUTOMATED 139 10^3/uL (150-450); RED BLOOD COUNT 2.82 10^6/uL (4.00-5.40); WHITE BLOOD COUNT 9.3 10^3/uL (4.0-10.0)
[2018-12-20 06:28] LABS: BLOOD UREA NITROGEN 11 MG/DL (7-18); CALCIUM LEVEL 8.2 MG/DL (8.8-10.2); CARBON DIOXIDE LEVEL 25 MEQ/L (21-32); CHLORIDE LEVEL 111 MEQ/L (98-107); CREATININE FOR GFR 0.85 MG/DL (0.55-1.30); GLOMERULAR FILTRATION RATE > 60.0 (>39); GLUCOSE, FASTING 95 MG/DL (70-100); MAGNESIUM LEVEL 1.8 MG/DL (1.8-2.4); PHOSPHORUS LEVEL 2.9 MG/DL (2.5-4.9); POTASSIUM SERUM 3.2 MEQ/L (3.5-5.1); SODIUM LEVEL 141 MEQ/L (136-145)
[2018-12-20] MEDS: HumaLOG INSULIN (NovoLOG) PER UNIT SC SCH ×4 (07:30→21:00)
[2018-12-20 08:00] VITALS: BP 96/54
[2018-12-20] MEDS: busPIRone 5 MG TAB PO SCH ×2 (09:45→23:11)
[2018-12-20] MEDS: PANTOPRAZOLE 40MG TAB (PROTONIX) PO SCH (09:45)
[2018-12-20] MEDS: POTASSIUM CHLORIDE 10 MEQ SR TABLET PO SCH ×2 (09:45→13:05)
[2018-12-20] MEDS: ATORVASTATIN 20 MG TAB PO SCH (09:45)
[2018-12-20] MEDS: MAG SULF 1GM/100ML (MAG RUN) 1 GM in IV 1 EA IV SCH ×2 (10:18→12:21)
[2018-12-20 11:55] LABS: HEMATOCRIT 26.3 % (36.0-47.0); HEMOGLOBIN 8.5 g/dl (12.0-15.5); MEAN CORPUSCULAR HEMOGLOBIN 30.1 pg (27.0-33.0); MEAN CORPUSCULAR HGB CONC 32.3 g/dl (32.0-36.5); MEAN CORPUSCULAR VOLUME 93.3 fl (80.0-96.0); PLATELET COUNT, AUTOMATED 133 10^3/uL (150-450); RED BLOOD COUNT 2.82 10^6/uL (4.00-5.40); WHITE BLOOD COUNT 9.4 10^3/uL (4.0-10.0)
[2018-12-20 12:00] VITALS: BP 92/59
[2018-12-20] MEDS ORDERED: GOLYTELY SOLN 4000 ML BTL PO ONE (12:00)
--- NOTE | 2018-12-20 14:05 | IPNPDOC ---
Date Seen The patient was seen on 12/20/18. Progress Note SUBJECTIVE: 88-year-old female with past medical history of A. fib, diabetes mellitus, hypertension, hypothyroidism is admitted for A. fib with RVR and she had bleed. Reportedly, she had stopped taking all of her medications because her PCP did not give her any refills due to poor follow-up/lack of blood work done by the patient. She presented with lower GI bleeding, was invited by GI who parminder mmended colonoscopy but the patient refused it due to unwillingness to drink bowel regimen. Patient received 2 units of PRBC yesterday, H&H currently stable, no bloody vomitus overnight, had 1 small bowel movement in the morning with minimal bright red blood. She is currently asymptomatic, without any complaint at this time. Denies any shortness of breath, chest pain, nausea, vomiting or abdominal pain. December 19, 2018 Patient has not had any bowel movements since yesterday, H&H downtrending overnight, received 1 unit of PRBC earlier today. Patient continues to refuse colonoscopy due to unwillingness to drink bowel prep. She reports feeling fatigued, short of breath and overall malaise. She denies any chest pain, nausea, vomiting, abdominal pain or diarrhea. 12/20/2018 Patient had a bloody bowel movement this morning, H&H stable overnight, had another discussion regarding colonoscopy with the patient, agrees to having it now. She continues to experience generalized malaise and dyspnea, denies any chest pain, nausea, vomiting or abdominal pain. 10 point review of system was negative except for above PHYSICAL EXAMINATION: VITAL SIGNS: Please see below. GENERAL: No distress, frail HEENT: Normocephalic, atraumatic, moist mucous membranes NECK: Supple CARDIOVASCULAR EXAMINATION: Irregularly irregular, tachycardic RESPIRATORY EXAMINATION: Clear to auscultation, no wheezing ABDOMINAL EXAMINATION: Soft, nontender, nondistended, positive bowel sounds EXTREMITIES: Range of motion intact SKIN: No rash NEUROLOGICAL EXAMINATION: Alert and oriented 3, no focal deficits PSYCHIATRIC EXAMINATION: Calm and cooperative LABORATORY DATA, IMAGING STUDIES, MICROBIOLOGY: Please see below. DVT prophylaxis ordered?: No ASSESSMENT AND PLAN: 68-year-old female with past medical history of A. fib (on Coumadin), hypertension, diabetes and hypothyroidism was admitted for GI bleed and A. fib with RVR. PROBLEMS: 1. GI bleed: Was taking aspirin 81 mg daily for 2 weeks prior to bleed, likely lower GI tract, evaluated by GI, now agreeing to colonoscopy, plan for tomorrow. Status post 3 units of PRBC total, case discussed with Dr. Wu regarding possible colon embolization, recommended CTA to locate bleed, CTA negative. 2. A. fib:. Hold Coumadin, continue metoprolol for rate control. 3. Diabetes mellitus: Sliding scale insulin with fingersticks before every meal see and at bedtime. 4. Hypothyroidism: Continue levothyroxine. 5. Hyperlipidemia: Continue atorvastatin. DVT prophylaxis: SCDs. GI prophylaxis: Protonix VS, I&O, 24H, Fishbone Vital Signs/I&O Vital Signs Date Time Temp Pulse Resp B/P (MAP) Pulse Ox O2 Delivery O2 Flow Rate FiO2 12/20/18 12:00 97.8 95 17 92/59 (70) 98 Room Air I&O- Last 24 Hours up to 6 AM 12/20/18 06:00 Intake Total 2075 ml Output Total 0 ml Balance 2075 ml Laboratory Data 24H LABS Laboratory Tests 2 12/19/18 15:33: Nucleated Red Blood Cells % (auto) 0.0 12/19/18 16:46: Bedside Glucose (Misc Panel) 115H 12/19/18 19:30: Bedside Glucose (Misc Panel) 122H 12/20/18 05:39: Nucleated Red Blood Cells % (auto) 0.0, Anion Gap 5L, Glomerular Filtration Rate > 60.0, Calcium Level 8.2L, Phosphorus Level 2.9, Magnesium Level 1.8 12/20/18 11:39: Nucleated Red Blood Cells % (auto) 0.0 12/20/18 12:26: Bedside Glucose (Misc Panel) 109 CBC/BMP Laboratory Tests 12/19/18 15:33 12/20/18 05:39 12/20/18 11:39 CASSANDRA FARRAR MD Dec 20, 2018 14:05
[2018-12-20 16:00] VITALS: BP 104/70
[2018-12-20] MEDS ORDERED: BISACODYL 5 MG TAB PO ONE (18:00)
[2018-12-20] MEDS ORDERED: ONDANSETRON 4MG/2ML VIAL (J2405) IV PRN (19:00)
[2018-12-20 20:00] VITALS: BP 104/73
[2018-12-21] VITALS: BP 94/54
[2018-12-21 04:00] VITALS: BP 117/63
[2018-12-21 05:54] LABS: HEMATOCRIT 28.8 % (36.0-47.0); MEAN CORPUSCULAR HEMOGLOBIN 30.4 pg (27.0-33.0); MEAN CORPUSCULAR HGB CONC 31.3 g/dl (32.0-36.5); MEAN CORPUSCULAR VOLUME 97.3 fl (80.0-96.0); PLATELET COUNT, AUTOMATED 136 10^3/uL (150-450); RED BLOOD COUNT 2.96 10^6/uL (4.00-5.40); WHITE BLOOD COUNT 10.1 10^3/uL (4.0-10.0)
[2018-12-21] MEDS: LEVOTHYROXINE 88MCG TABLET (0.088 MG) PO SCH (06:00)
[2018-12-21] MEDS: METOPROLOL TART 25 MG TABLET PO SCH ×4 (06:00→23:22)
[2018-12-21 06:03] LABS: BLOOD UREA NITROGEN 6 MG/DL (7-18); CALCIUM LEVEL 7.9 MG/DL (8.8-10.2); CARBON DIOXIDE LEVEL 23 MEQ/L (21-32); CHLORIDE LEVEL 112 MEQ/L (98-107); CREATININE FOR GFR 0.74 MG/DL (0.55-1.30); GLOMERULAR FILTRATION RATE > 60.0 (>39); GLUCOSE, FASTING 106 MG/DL (70-100); MAGNESIUM LEVEL 2.2 MG/DL (1.8-2.4); POTASSIUM SERUM 3.4 MEQ/L (3.5-5.1); SODIUM LEVEL 141 MEQ/L (136-145)
[2018-12-21] MEDS: HumaLOG INSULIN (NovoLOG) PER UNIT SC SCH ×4 (07:30→20:13)
[2018-12-21 08:00] VITALS: BP 104/71
[2018-12-21] MEDS ORDERED: POTASSIUM CHLORIDE 10 MEQ SR TABLET PO ONE (08:45)
[2018-12-21] MEDS ORDERED: fentaNYL 100 MCG/2 ML INJECTION (J3010) As Ordered ONE (09:02)
[2018-12-21] MEDS ORDERED: PROPOFOL 500 MG/50 ML VIAL As Ordered ONE (09:02)
[2018-12-21] MEDS ORDERED: LIDOCAINE 2% INJ 100 MG/5 ML SDV (FOR ANES.) As Ordered ONE (09:06)
[2018-12-21] MEDS: KCL 10MEQ/100ML SWI (KRUN) 10 MEQ in IV 1 EA IV SCH ×4 (10:00→12:00)
--- NOTE | 2018-12-21 10:54 | ROOR ---
Patient Name: Moon Matias Procedure Date: 12/21/2018 9:15 AM Date of : 1950 Age: 68 Room: Main OR Gender: Female Note Status: Finalized Procedure: Upper GI endoscopy Indications: Recent gastrointestinal bleeding Providers: Chico Valenzuela MD Referring MD: Vincent Olguin DO Requesting Provider: Medicines: Monitored Anesthesia Care Complications: No immediate complications. Procedure: Pre-Anesthesia Assessment: - Prior to the procedure, a History and Physical was performed, and patient medications and allergies were reviewed. The patient is competent. The risks and benefits of the procedure and the sedation options and risks were discussed with the patient. All questions were answered and informed consent was obtained. Patient identification and proposed procedure were verified by the physician, the nurse and the anesthesiologist in the procedure room. Mental Status Examination: alert and oriented. Airway Examination: normal oropharyngeal airway and neck mobility. Respiratory Examination: clear to auscultation. CV Examination: normal. Prophylactic Antibiotics: The patient does not require prophylactic antibiotics. Prior Anticoagulants: The patient has taken no previous anticoagulant or antiplatelet agents. ASA Grade Assessment: II - A patient with mild systemic disease. After reviewing the risks and benefits, the patient was deemed in satisfactory condition to undergo the procedure. The anesthesia plan was to use monitored anesthesia care (MAC). Immediately prior to administration of medications, the patient was re-assessed for adequacy to receive sedatives. The heart rate, respiratory rate, oxygen saturations, blood pressure, adequacy of pulmonary ventilation, and response to care were monitored throughout the procedure. The physical status of the patient was re-assessed after the procedure. The Endoscope was introduced through the mouth, and advanced to the second part of duodenum. The upper GI endoscopy was accomplished without difficulty. The patient tolerated the procedure well. Findings: The Z-line was irregular and was found 39 cm from the incisors. A small hiatal hernia was present. The entire examined stomach was normal. The duodenal bulb and second portion of the duodenum were normal. Impression: - Z-line irregular, 39 cm from the incisors. - Small hiatal hernia. - Normal stomach. - Normal duodenal bulb and second portion of the duodenum. - No specimens collected. Recommendation: - Patient has a contact number available for emergencies. The signs and symptoms of potential delayed complications were discussed with the patient. Return to normal activities tomorrow. Written discharge instructions were provided to the patient. - Resume previous diet. - Continue present medications. - Resume Coumadin (warfarin) at prior dose today. Refer to primary physician for further adjustment of therapy. - Await pathology results. - Return to primary care physician. Chico Valenzuela MD Chico Valenzuela MD 12/21/2018 10:54:09 AM Electronically signed by Chico Valenzuela MD Number of Addenda: 0 Note Initiated On: 12/21/2018 9:15 AM Estimated Blood Loss: Estimated blood loss was minimal.
[2018-12-21] MEDS ORDERED: LR 1,000 ML IV SCH (11:00)
[2018-12-21] MEDS ORDERED: ONDANSETRON 4MG/2ML VIAL (J2405) IV PRN (11:00)
--- NOTE | 2018-12-21 11:02 | ROOR ---
Patient Name: Moon Matias Procedure Date: 12/21/2018 9:16 AM Date of : 1950 Age: 68 Room: Main OR Gender: Female Note Status: Finalized Procedure: Colonoscopy Indications: Hematochezia, Rectal bleeding Providers: Chico Valenzuela MD Referring MD: Philip Laird Md Requesting Provider: Medicines: Monitored Anesthesia Care Complications: No immediate complications. Procedure: Pre-Anesthesia Assessment: - Prior to the procedure, a History and Physical was performed, and patient medications and allergies were reviewed. The patient is competent. The risks and benefits of the procedure and the sedation options and risks were discussed with the patient. All questions were answered and informed consent was obtained. Patient identification and proposed procedure were verified by the physician, the nurse and the anesthesiologist in the procedure room. Mental Status Examination: alert and oriented. Airway Examination: normal oropharyngeal airway and neck mobility. Respiratory Examination: clear to auscultation. CV Examination: normal. Prophylactic Antibiotics: The patient does not require prophylactic antibiotics. Prior Anticoagulants: The patient has taken no previous anticoagulant or antiplatelet agents. ASA Grade Assessment: II - A patient with mild systemic disease. After reviewing the risks and benefits, the patient was deemed in satisfactory condition to undergo the procedure. The anesthesia plan was to use monitored anesthesia care (MAC). Immediately prior to administration of medications, the patient was re-assessed for adequacy to receive sedatives. The heart rate, respiratory rate, oxygen saturations, blood pressure, adequacy of pulmonary ventilation, and response to care were monitored throughout the procedure. The physical status of the patient was re-assessed after the procedure. The Colonoscope was introduced through the anus and advanced to the terminal ileum, with identification of the appendiceal orifice and IC valve. The colonoscopy was performed without difficulty. The patient tolerated the procedure well. The quality of the bowel preparation was good. The terminal ileum, ileocecal valve, appendiceal orifice, and rectum were photographed. Scope insertion time was 3 minutes. Scope withdrawal time was 9 minutes. The total duration of the procedure was 14 minutes. Findings: The perianal and digital rectal examinations were normal. The terminal ileum appeared normal. Multiple small and large-mouthed diverticula were found from sigmoid to ascending colon. There was evidence of recent bleeding from the diverticular opening. For hemostasis, one hemostatic clip was successful and one hemostatic clip was unsuccessfully placed. There was no bleeding at the end of the procedure. Non-bleeding external and internal hemorrhoids were found during endoscopy. The hemorrhoids were medium-sized. Impression: - The examined portion of the ileum was normal. - Moderate diverticulosis from sigmoid to ascending colon. There was evidence of recent bleeding from the diverticular opening. Clip was placed. - Non-bleeding external and internal hemorrhoids. - No specimens collected. Recommendation: - Patient has a contact number available for emergencies. The signs and symptoms of potential delayed complications were discussed with the patient. Return to normal activities tomorrow. Written discharge instructions were provided to the patient. - High fiber diet. - Continue present medications. - Resume Coumadin (warfarin) at prior dose today. Refer to primary physician for further adjustment of therapy. - Use fiber, for example Citrucel, Fibercon, Konsyl or Metamucil. - Repeat colonoscopy is not recommended due to current age (66 years or older) depending on clinical and functional status. - Return to primary care physician. Attending Participation: I personally performed the entire procedure. Chico Valenzuela MD Chico Valenzuela MD 12/21/2018 11:02:13 AM Electronically signed by Chico Valenzuela MD Number of Addenda: 0 Note Initiated On: 12/21/2018 9:16 AM Estimated Blood Loss: Estimated blood loss was minimal.
[2018-12-21] MEDS: busPIRone 5 MG TAB PO SCH ×2 (11:41→23:22)
[2018-12-21] MEDS: ATORVASTATIN 20 MG TAB PO SCH (11:41)
[2018-12-21] MEDS: PANTOPRAZOLE 40MG TAB (PROTONIX) PO SCH (11:41)
--- NOTE | 2018-12-21 12:12 | IPNPDOC ---
Date Seen The patient was seen on 12/21/18. Progress Note Interval history: Patient is noted to have recurrent episodes of blood in the stools and her h emoglobin has slightly decreased again during hospitalization. Patient now agreed to undergo endoscopic workup. Patient also reporting chronic acid reflux with prior episodes of vomiting and dark stools before. Exam: Vitals: reviewed General: Alert and oriented x 3, not in distress Abdomen: non-distended, no surgical scars, soft, non-tender, no palpable masses, normal bowel sounds heard. Labs: reviewed. Imaging: reviewed. Impression: -- Persistent rectal bleeding, -- likely diverticular bleeding vs AVM bleeding vs rule out upper GI bleeding/PUD -- History of atrial fibrillation, on anticoagulation with Coumadin, currently on hold. Recommendations: -- Patient educated about the test results, possible differential diagnoses and All questions answered. -- In view of patient's persistent symptoms, patient is educated about need for endoscopic workup prior to initiation of anticoagulation. -- Patient is scheduled for EGD and colonoscopy after bowel preparation. -- The procedure, indications, risks (bleeding, perforation, infection, hypotension, respiratory depression, allergy, need for endotracheal intubation, surgery, colostomy, cardiac arrest, even ), benefits, limitations (e.g., missing a lesion), and all other alternatives (including no intervention) were explained to the patient who understood and agreed for the procedure. Addendum Post procedure: -- Patient tolerated the procedure very well. No immediate postprocedure complications. Noted to have normal EGD except small hiatal hernia. Colonoscopy showed diverticulosis with one diverticulum showing signs of recent bleeding, 1 clip was successfully placed. Also noted nonbleeding hemorrhoids. -- Recommendations as per operative note. -- Can resume patient anti-coagulation today.( to be management as per primary team). -- Resume high fiber diet. Follow anti-reflux measures. -- OTC fiber supplements to avoid Constipation -- Benefiber or metamucil or colace or miralax. -- follow up with patient's primary barrel filler head and PCP for routine medical care and age appropriate health maintenance. Plan of care discussed with patient and primary team. Patient verbalized understanding and agreed with the plan. VS, I&O, 24H, Fishbone Vital Signs/I&O Vital Signs Date Time Temp Pulse Resp B/P (MAP) Pulse Ox O2 Delivery O2 Flow Rate FiO2 12/21/18 11:05 97.4 120 20 114/79 (91) 98 Room Air I&O- Last 24 Hours up to 6 AM 12/21/18 05:59 Intake Total 4380 ml Output Total 50 ml Balance 4330 ml Laboratory Data 24H LABS Laboratory Tests 2 12/20/18 11:39: Nucleated Red Blood Cells % (auto) 0.0 12/20/18 12:26: Bedside Glucose (Misc Panel) 109 12/20/18 17:32: Bedside Glucose (Misc Panel) 102 12/20/18 21:03: Bedside Glucose (Misc Panel) 124H 12/21/18 05:24: Nucleated Red Blood Cells % (auto) 0.0, Anion Gap 6L, Glomerular Filtration Rate > 60.0, Calcium Level 7.9L, Magnesium Level 2.2 12/21/18 10:44: Bedside Glucose (Misc Panel) 88 CBC/BMP Laboratory Tests 12/20/18 11:39 12/21/18 05:24 SHABANA BECKER MD Dec 21, 2018 12:12
--- NOTE | 2018-12-21 14:34 | IPNPDOC ---
Date Seen The patient was seen on 12/21/18. Progress Note SUBJECTIVE: 88-year-old female with past medical history of A. fib, diabetes mellitus, hypertension, hypothyroidism is admitted for A. fib with RVR and she had bleed. Reportedly, she had stopped taking all of her medications because her PCP did not give her any refills due to poor follow-up/lack of blood work done by the patient. She presented with lower GI bleeding, was invited by GI who rec ommended colonoscopy but the patient refused it due to unwillingness to drink bowel regimen. Patient received 2 units of PRBC yesterday, H&H currently stable, no bloody vomitus overnight, had 1 small bowel movement in the morning with minimal bright red blood. She is currently asymptomatic, without any complaint at this time. Denies any shortness of breath, chest pain, nausea, vomiting or abdominal pain. December 19, 2018 Patient has not had any bowel movements since yesterday, H&H downtrending overnight, received 1 unit of PRBC earlier today. Patient continues to refuse colonoscopy due to unwillingness to drink bowel prep. She reports feeling fatigued, short of breath and overall malaise. She denies any chest pain, nausea, vomiting, abdominal pain or diarrhea. 12/20/2018 Patient had a bloody bowel movement this morning, H&H stable overnight, had another discussion regarding colonoscopy with the patient, agrees to having it now. She continues to experience generalized malaise and dyspnea, denies any chest pain, nausea, vomiting or abdominal pain. 12/21/2018 Patient underwent colonoscopy today, found to have recent bleed from diverticular lesion, clipped. Patient seen postprocedure in her room, comfortable, eating lunch, without any complaints at this time. 10 point review of system was negative except for above PHYSICAL EXAMINATION: VITAL SIGNS: Please see below. GENERAL: No distress, frail HEENT: Normocephalic, atraumatic, moist mucous membranes NECK: Supple CARDIOVASCULAR EXAMINATION: Irregularly irregular, tachycardic RESPIRATORY EXAMINATION: Clear to auscultation, no wheezing ABDOMINAL EXAMINATION: Soft, nontender, nondistended, positive bowel sounds EXTREMITIES: Range of motion intact SKIN: No rash NEUROLOGICAL EXAMINATION: Alert and oriented 3, no focal deficits PSYCHIATRIC EXAMINATION: Calm and cooperative LABORATORY DATA, IMAGING STUDIES, MICROBIOLOGY: Please see below. DVT prophylaxis ordered?: No ASSESSMENT AND PLAN: 68-year-old female with past medical history of A. fib (on Coumadin), hypertension, diabetes and hypothyroidism was admitted for GI bleed and A. fib with RVR. PROBLEMS: 1. GI bleed: Was taking aspirin 81 mg daily for 2 weeks prior to bleed, likely lower GI tract, evaluated by GI, status post colonoscopy, found to have signs of recent bleed from diverticular lesion, clipped. Status post 3 units of PRBC total. We'll trend H&H and transfuse as needed. 2. A. fib:. Hold Coumadin, continue metoprolol for rate control. 3. Diabetes mellitus: Sliding scale insulin with fingersticks before every meal see and at bedtime. 4. Hypothyroidism: Continue levothyroxine. 5. Hyperlipidemia: Continue atorvastatin. DVT prophylaxis: SCDs. GI prophylaxis: Protonix VS, I&O, 24H, Fishbone Vital Signs/I&O Vital Signs Date Time Temp Pulse Resp B/P (MAP) Pulse Ox O2 Delivery O2 Flow Rate FiO2 12/21/18 11:46 133 112/71 12/21/18 11:05 97.4 20 98 Room Air I&O- Last 24 Hours up to 6 AM 12/21/18 05:59 Intake Total 4380 ml Output Total 50 ml Balance 4330 ml Laboratory Data 24H LABS Laboratory Tests 2 12/20/18 17:32: Bedside Glucose (Misc Panel) 102 12/20/18 21:03: Bedside Glucose (Misc Panel) 124H 12/21/18 05:24: Nucleated Red Blood Cells % (auto) 0.0, Anion Gap 6L, Glomerular Filtration Rate > 60.0, Calcium Level 7.9L, Magnesium Level 2.2 12/21/18 10:44: Bedside Glucose (Misc Panel) 88 CBC/BMP Laboratory Tests 12/21/18 05:24 CASSANDRA FARRAR MD Dec 21, 2018 14:34
[2018-12-21 16:00] VITALS: BP 88/58
[2018-12-21] MEDS ORDERED: NS 250 ML IV ONE (16:30)
[2018-12-21 18:37] VITALS: BP 94/59
[2018-12-21 20:00] VITALS: BP 118/74
[2018-12-22] VITALS: BP 116/63
[2018-12-22 04:00] VITALS: BP 108/61
[2018-12-22 05:48] LABS: HEMATOCRIT 27.6 % (36.0-47.0); HEMOGLOBIN 8.7 g/dl (12.0-15.5); MEAN CORPUSCULAR HEMOGLOBIN 30.5 pg (27.0-33.0); MEAN CORPUSCULAR HGB CONC 31.5 g/dl (32.0-36.5); MEAN CORPUSCULAR VOLUME 96.8 fl (80.0-96.0); PLATELET COUNT, AUTOMATED 150 10^3/uL (150-450); RED BLOOD COUNT 2.85 10^6/uL (4.00-5.40); WHITE BLOOD COUNT 11.4 10^3/uL (4.0-10.0)
[2018-12-22] MEDS: LEVOTHYROXINE 88MCG TABLET (0.088 MG) PO SCH (06:07)
[2018-12-22] MEDS: METOPROLOL TART 25 MG TABLET PO SCH (06:07)
[2018-12-22 06:11] LABS: BLOOD UREA NITROGEN 9 MG/DL (7-18); CALCIUM LEVEL 7.2 MG/DL (8.8-10.2); CARBON DIOXIDE LEVEL 23 MEQ/L (21-32); CHLORIDE LEVEL 109 MEQ/L (98-107); CREATININE FOR GFR 0.96 MG/DL (0.55-1.30); GLOMERULAR FILTRATION RATE > 60.0 (>39); GLUCOSE, FASTING 117 MG/DL (70-100); POTASSIUM SERUM 4.3 MEQ/L (3.5-5.1); SODIUM LEVEL 140 MEQ/L (136-145)
[2018-12-22] MEDS: HumaLOG INSULIN (NovoLOG) PER UNIT SC SCH ×4 (07:30→21:00)
[2018-12-22] MEDS: ATORVASTATIN 20 MG TAB PO SCH (08:26)
[2018-12-22] MEDS: PANTOPRAZOLE 40MG TAB (PROTONIX) PO SCH (08:26)
[2018-12-22] MEDS: busPIRone 5 MG TAB PO SCH ×2 (08:26→21:29)
[2018-12-22] MEDS ORDERED: METOPROLOL SUCC (TopROL XL) 100MG *XL* TAB PO SCH (09:00)
[2018-12-22] MEDS: ASPIRIN 81 MG ENTERIC TAB PO SCH (09:00)
[2018-12-22] MEDS ORDERED: LISINOPRIL 10 MG TAB PO SCH (09:00)
[2018-12-22] MEDS ORDERED: FUROSEMIDE 40 MG TAB PO SCH (09:00)
--- NOTE | 2018-12-22 12:56 | IPNPDOC ---
Date Seen The patient was seen on 12/22/18. Progress Note SUBJECTIVE: 88-year-old female with past medical history of A. fib, diabetes mellitus, hypertension, hypothyroidism is admitted for A. fib with RVR and she had bleed. Reportedly, she had stopped taking all of her medications because her PCP did not give her any refills due to poor follow-up/lack of blood work done by the patient. She presented with lower GI bleeding, was invited by GI who rec ommended colonoscopy but the patient refused it due to unwillingness to drink bowel regimen. Patient received 2 units of PRBC yesterday, H&H currently stable, no bloody vomitus overnight, had 1 small bowel movement in the morning with minimal bright red blood. She is currently asymptomatic, without any complaint at this time. Denies any shortness of breath, chest pain, nausea, vomiting or abdominal pain. December 19, 2018 Patient has not had any bowel movements since yesterday, H&H downtrending overnight, received 1 unit of PRBC earlier today. Patient continues to refuse colonoscopy due to unwillingness to drink bowel prep. She reports feeling fatigued, short of breath and overall malaise. She denies any chest pain, nausea, vomiting, abdominal pain or diarrhea. 12/22/2018 Patient comfortable in bed, reports intermittent dizziness, no other complaint at this time, had one nonbloody bowel movement since colonoscopy yesterday. She is tolerating her diet without any difficulty, no additional visits time. She denies any shortness of breath, chest pain, nausea, vomiting, abdominal pain or diarrhea. 10 point review of system was negative except for above PHYSICAL EXAMINATION: VITAL SIGNS: Please see below. GENERAL: No distress, frail HEENT: Normocephalic, atraumatic, moist mucous membranes NECK: Supple CARDIOVASCULAR EXAMINATION: Irregularly irregular, tachycardic RESPIRATORY EXAMINATION: Clear to auscultation, no wheezing ABDOMINAL EXAMINATION: Soft, nontender, nondistended, positive bowel sounds EXTREMITIES: Range of motion intact SKIN: No rash NEUROLOGICAL EXAMINATION: Alert and oriented 3, no focal deficits PSYCHIATRIC EXAMINATION: Calm and cooperative LABORATORY DATA, IMAGING STUDIES, MICROBIOLOGY: Please see below. DVT prophylaxis ordered?: No ASSESSMENT AND PLAN: 68-year-old female with past medical history of A. fib (on Coumadin), hypertension, diabetes and hypothyroidism was admitted for GI bleed and A. fib with RVR. PROBLEMS: 1. GI bleed: Diverticular, status post colonoscopy and clipping, no further bleeding noted since, H&H stable, restart home meds including Coumadin, PT eval, if stable and cleared by physical therapy will plan for discharge tomorrow. 2. A. fib:. Restarted Coumadin, continue metoprolol for rate control. 3. Diabetes mellitus: Sliding scale insulin with fingersticks before every meal see and at bedtime. 4. Hypothyroidism: Continue levothyroxine. 5. Hyperlipidemia: Continue atorvastatin. DVT prophylaxis: SCDs. GI prophylaxis: Protonix VS, I&O, 24H, Fishbone Vital Signs/I&O Vital Signs Date Time Temp Pulse Resp B/P (MAP) Pulse Ox O2 Delivery O2 Flow Rate FiO2 12/22/18 06:07 103 101/63 12/22/18 04:00 97.9 18 97 Room Air I&O- Last 24 Hours up to 6 AM 12/22/18 06:00 Intake Total 1630 ml Balance 1630 ml Laboratory Data 24H LABS Laboratory Tests 2 12/21/18 20:09: Bedside Glucose (Misc Panel) 133H 12/22/18 05:18: Nucleated Red Blood Cells % (auto) 0.0, Anion Gap 8, Glomerular Filtration Rate > 60.0, Calcium Level 7.2L, Magnesium Level 2.0 CBC/BMP Laboratory Tests 12/22/18 05:18 CASSANDRA FARRAR MD Dec 22, 2018 12:56
[2018-12-22] MEDS: POTASSIUM CHLORIDE 10 MEQ SR TABLET PO SCH (14:17)
[2018-12-22] MEDS ORDERED: WARFARIN SOD 2.5 MG TAB PO SCH (17:00)
[2018-12-22 19:25] VITALS: BP_SYST 136; BP_SYST 94; BP_DIAS 56; BP_DIAS 66
[2018-12-22 20:00] VITALS: BP 94/64
[2018-12-22] MEDS ORDERED: METOPROLOL SUCC (TopROL XL) 50MG **XL** TAB PO SCH (21:00)
[2018-12-22 21:30] VITALS: BP 94/64
[2018-12-23] VITALS: BP 90/60
[2018-12-23 04:00] VITALS: BP 90/62
[2018-12-23] MEDS: LEVOTHYROXINE 88MCG TABLET (0.088 MG) PO SCH (05:05)
[2018-12-23 05:58] LABS: HEMATOCRIT 26.8 % (36.0-47.0); HEMOGLOBIN 8.3 g/dl (12.0-15.5); MEAN CORPUSCULAR HEMOGLOBIN 29.9 pg (27.0-33.0); MEAN CORPUSCULAR VOLUME 96.4 fl (80.0-96.0); PLATELET COUNT, AUTOMATED 141 10^3/uL (150-450); RED BLOOD COUNT 2.78 10^6/uL (4.00-5.40); WHITE BLOOD COUNT 11.8 10^3/uL (4.0-10.0)
[2018-12-23 06:22] LABS: BLOOD UREA NITROGEN 13 MG/DL (7-18); CARBON DIOXIDE LEVEL 25 MEQ/L (21-32); CHLORIDE LEVEL 108 MEQ/L (98-107); CREATININE FOR GFR 0.82 MG/DL (0.55-1.30); GLOMERULAR FILTRATION RATE > 60.0 (>39); GLUCOSE, FASTING 122 MG/DL (70-100); MAGNESIUM LEVEL 1.9 MG/DL (1.8-2.4); PHOSPHORUS LEVEL 2.2 MG/DL (2.5-4.9); POTASSIUM SERUM 4.2 MEQ/L (3.5-5.1); SODIUM LEVEL 138 MEQ/L (136-145)
[2018-12-23] MEDS: HumaLOG INSULIN (NovoLOG) PER UNIT SC SCH ×2 (07:30→12:00)
[2018-12-23 07:50] VITALS: BP 103/61
[2018-12-23] MEDS: ASPIRIN 81 MG ENTERIC TAB PO SCH ×2 (08:45→08:48)
[2018-12-23] MEDS: PANTOPRAZOLE 40MG TAB (PROTONIX) PO SCH (08:46)
[2018-12-23] MEDS: POTASSIUM CHLORIDE 10 MEQ SR TABLET PO SCH (08:46)
[2018-12-23] MEDS: busPIRone 5 MG TAB PO SCH (08:46)
[2018-12-23] MEDS: ATORVASTATIN 20 MG TAB PO SCH (08:46)
[2018-12-23] MEDS: K-PHOS NEUTRAL 250MG TABLET (SOD.PHOSPHATE/POT.PHOSPHATE) PO SCH ×2 (08:46→13:44)
[2018-12-23] MEDS ORDERED: METO1TAB33 PO (11:00)
[2018-12-23] MEDS ORDERED: ASPI81TA26 PO (11:00)
[2018-12-23] MEDS ORDERED: ATOR40TA75 PO (11:00)
[2018-12-23] MEDS ORDERED: LEVO88TA24 PO (11:00)
[2018-12-23] MEDS ORDERED: BUSP5TA PO (11:00)
[2018-12-23] MEDS ORDERED: WARF-18 PO (11:00)
[2018-12-23] MEDS ORDERED: METF-791 PO (11:00)
--- NOTE | 2018-12-23 11:09 | DS.PDOC ---
Discharge Summary General Date of Admission Dec 17, 2018 at 15:52 Date of Discharge 12/23/2018 Attending Physician: CASSANDRA FARRAR MD Discharge Summary PROCEDURES PERFORMED DURING STAY: None. ADMITTING DIAGNOSES: 1. GI bleed. DISCHARGE DIAGNOSES: 1. Lower GI bleed. COMPLICATIONS/CHIEF COMPLAINT: Acute Lowe Gi Bleeding Atrial Fibrillation W/Rvr. HISTORY OF PRESENT ILLNESS: 68-year-old female with past medical history of A. fib, hypertension, hyperlipidemia, diabetes mellitus and diverticulosis was admitted for GI bleed. She required 3 units of packed blood cells total, und erwent colonoscopy which showed recent diverticular bleed, which was clipped. Patient has not had any further bleeding since, H&H has remained stable since colonoscopy as well, patient tolerating diet, denies any complaints at this time. Patient's aspirin and Coumadin were restarted as well, patient is hemodynamically and clinically stable for discharge with outpatient follow-up. Patient reports that she is out of all of her medications because she was not given a renewal by her PCP due to lack of blood work done by the patient. She is requesting a refill before she is able to see her primary care physician, one- month supply will be provided to the patient. HOSPITAL COURSE: As above. DISCHARGE MEDICATIONS: Please see below. ALLERGIES: Please see below. PHYSICAL EXAMINATION: VITAL SIGNS: Please see below. GENERAL: No distress, frail HEENT: Normocephalic, atraumatic, moist mucous membranes NECK: Supple CARDIOVASCULAR EXAMINATION: Irregularly irregular, tachycardic RESPIRATORY EXAMINATION: Clear to auscultation, no wheezing ABDOMINAL EXAMINATION: Soft, nontender, nondistended, positive bowel sounds EXTREMITIES: Range of motion intact SKIN: No rash NEUROLOGICAL EXAMINATION: Alert and oriented 3, no focal deficits PSYCHIATRIC EXAMINATION: Calm and cooperative LABORATORY DATA: Please see below. PROGNOSIS: Guarded ACTIVITY: As tolerated. DIET: Cardiac with consistent carbs DISCHARGE PLAN: Patient is follow with GI and PCP in 1-2 weeks DISPOSITION: Home DISCHARGE INSTRUCTIONS: 1. As above. DISCHARGE CONDITION: Stable. TIME SPENT ON DISCHARGE: Greater than 33 minutes. Vital Signs/I&Os Vital Signs Date Time Temp Pulse Resp B/P (MAP) Pulse Ox O2 Delivery O2 Flow Rate FiO2 12/23/18 07:50 98.7 98 18 103/61 (75) 99 Room Air I&O- Last 24 Hours up to 6 AM 12/23/18 05:59 Intake Total 180 ml Output Total 0 ml Balance 180 ml Laboratory Data Labs 24H Laboratory Tests 2 12/22/18 17:24: Bedside Glucose (Misc Panel) 129H 12/22/18 20:32: Bedside Glucose (Misc Panel) 124H 12/23/18 05:44: Nucleated Red Blood Cells % (auto) 0.0, Anion Gap 5L, Glomerular Filtration Rate > 60.0, Calcium Level 8.0L, Phosphorus Level 2.2L, Magnesium Level 1.9 CBC/BMP Laboratory Tests 12/23/18 05:44 FSBS Laboratory Tests Test 12/22/18 17:24 12/22/18 20:32 Range/Units Bedside Glucose (Misc Panel) 129 124 83-110 MG/DL Discharge Medications Scheduled Aspirin (Aspirin EC) 81 Mg Tablet.dr, 81 MG PO DAILY Atorvastatin Calcium (Atorvastatin Calcium) 40 Mg Tablet, 40 MG PO DAILY Buspirone HCl (Buspirone HCl) 5 Mg Tablet, 5 MG PO BID Levothyroxine Sodium (Levoxyl) 88 Mcg Tablet, 88 MCG PO DAILY Metformin HCl (Metformin HCl ER) 500 Mg Tab.er.24h, 1,000 MG PO DAILY Metoprolol Succinate (Metoprolol Succinate) 100 Mg Tab.er.24h, 100 MG PO QAM Warfarin Sodium (Warfarin Sodium) 2.5 Mg Tablet, 2.5 MG PO 6XWK EVERY DAY EXCEPT SATURDAY - DOES NOT TAKE ANY OF SATURDAY Allergies Coded Allergies: No Known Allergies (Unverified , 06/10/17) CASSANDRA FARRAR MD Dec 23, 2018 11:09
== END 2018-12-23 15:44 | disposition home or self-care (01) | DRG 379 ==
LOC: EDBD 11:57 → M ED 11:57 → M ED INP 15:52 → M PCU 17:51
PROVIDERS: ADMIT Family Medicine; ATTEND Internal Medicine
PROC: 30233N1 Transfusion of Nonautologous Red Blood Cells into Peripheral Vein, Percutaneous Approach (ICD-10-PCS; principal; 2018-12-17)
PROC: 0DJ08ZZ Inspection of Upper Intestinal Tract, Via Natural or Artificial Opening Endoscopic (ICD-10-PCS; 2018-12-21)
PROC: 0DJD8ZZ Inspection of Lower Intestinal Tract, Via Natural or Artificial Opening Endoscopic (ICD-10-PCS; 2018-12-21)
PROC: 0W3P8ZZ Control Bleeding in Gastrointestinal Tract, Via Natural or Artificial Opening Endoscopic (ICD-10-PCS; 2018-12-21)
DX: K57.31 Diverticulosis of large intestine without perforation or abscess with bleeding (principal); I48.91 Unspecified atrial fibrillation; D64.9 Anemia, unspecified; E03.9 Hypothyroidism, unspecified; F41.9 Anxiety disorder, unspecified; Z66 Do not resuscitate; I25.9 Chronic ischemic heart disease, unspecified; I11.9 Hypertensive heart disease without heart failure; E11.9 Type 2 diabetes mellitus without complications; E78.5 Hyperlipidemia, unspecified; Z79.82 Long term (current) use of aspirin; Z91.19 Patient's noncompliance with other medical treatment and regimen; Z91.14 Patient's other noncompliance with medication regimen; K44.9 Diaphragmatic hernia without obstruction or gangrene; K64.9 Unspecified hemorrhoids

== ENCOUNTER 2021-08-03 22:46 | Inpatient (IN) | payer MEDICARE ==
[~2021-08-03] VITALS: Ht 152.4 cm; Wt 66.1 kg
[~2021-08-03 22:46] MED LIST changes: +ASPI81TA26 PO; +ATOR40TA75 PO; +BUSP5TA PO; +FURO40TA2 PO; +LEVO88TA24 PO; +LISI10TA22; +LISI10TA22 PO; -LISI10TA4; -METF-791; +METF-838; +METF-838 PO; +METO1TAB33 PO; +METO1TAB7 PO; +PATIENT COMMENT; +POTA10TA17 PO; +WARF-18 PO
[2021-08-04 00:32] LABS: BASO % 0.5 % (0.0-1.0); EOS # 0.1 10^3/uL (0.0-0.5); EOS % 1.2 % (0.0-3.0); HEMATOCRIT 45.8 % (36.0-47.0); HEMOGLOBIN 14.1 g/dl (12.0-15.5); LYMPH % 13.1 % (24.0-44.0); MEAN CORPUSCULAR HGB CONC 30.8 g/dl (32.0-36.5); MEAN CORPUSCULAR VOLUME 94.2 fl (80.0-96.0); MONO # 0.8 10^3/uL (0.0-0.8); MONO % 9.7 % (2.0-8.0); NEUTROPHILS # 5.8 10^3/uL (1.5-8.5); NEUTROPHILS % 75.1 % (36.0-66.0); PLATELET COUNT, AUTOMATED 130 10^3/uL (150-450); RED BLOOD COUNT 4.86 10^6/uL (4.00-5.40); WHITE BLOOD COUNT 7.7 10^3/uL (4.0-10.0)
[2021-08-04 00:49] LABS: CK-MB VALUE MASS < 1.0 NG/ML (<3.6); CPK CREATINE PHOSPHOKINASE 23 U/L (26-192); MB/CK RELATIVE INDEX 4.35 (< OR =4)
[2021-08-04 01:00] LABS: ALBUMIN 3.4 GM/DL (3.2-5.2); ALT/SGPT 20 U/L (12-78); BILIRUBIN,DIRECT 0.1 MG/DL (0.0-0.2); BILIRUBIN,TOTAL 0.4 MG/DL (0.2-1.0); BLOOD UREA NITROGEN 17 MG/DL (7-18); CALCIUM LEVEL 8.7 MG/DL (8.8-10.2); CARBON DIOXIDE LEVEL 26 MEQ/L (21-32); CHLORIDE LEVEL 106 MEQ/L (98-107); CREATININE FOR GFR 0.91 MG/DL (0.55-1.30); GLOMERULAR FILTRATION RATE > 60.0 (>39); GLUCOSE, FASTING 131 MG/DL (70-100); LIPASE 98 U/L (73-393); POTASSIUM SERUM 3.8 MEQ/L (3.5-5.1); SODIUM LEVEL 140 MEQ/L (136-145); TOTAL PROTEIN 8.1 GM/DL (6.4-8.2)
[2021-08-04] MEDS ORDERED: METOPROLOL TARTRATE 100MG TAB PO ONE (01:00)
[2021-08-04] MEDS ORDERED: ISOVUE-370 76% 100ML VIAL As Ordered ONE (01:21)
[2021-08-04] MEDS: METOPROLOL 5 MG/5 ML VIAL IV SCH ×3 (01:37→02:11)
[2021-08-04] MEDS ORDERED: FLEET ENEMA PR ONE (04:50)
[2021-08-04 05:26] LABS: RSV AMPLIFICATION NEGATIVE (NEGATIVE)
[2021-08-04] MEDS ORDERED: ATOR1TAB21 PO (05:29)
[2021-08-04] MEDS ORDERED: COLA100C5 PO (05:29)
[2021-08-04] MEDS ORDERED: ELIQ2.5T PO (05:29)
[2021-08-04] MEDS ORDERED: METF-838 PO (05:29)
[2021-08-04] MEDS ORDERED: METO1TAB33 PO (05:29)
[2021-08-04] MEDS ORDERED: SIME125C4 PO (05:29)
[2021-08-04] MEDS ORDERED: BENA25TA5 PO (05:29)
[2021-08-04] MEDS ORDERED: BUSP5TA PO (05:29)
[2021-08-04] MEDS ORDERED: HOME MED LIST COMPLETE! XX SCH (05:30)
[2021-08-04] MEDS ORDERED: HEPARIN SOD (PORCINE) 5000UNITS/ML 1ML VIAL/SYRINGE SC SCH (06:00)
[2021-08-04] MEDS ORDERED: MAALOX 30 ML SUSP *UDC PO PRN (06:10)
[2021-08-04] MEDS ORDERED: MOM 30ML SUSPENSION UDC PO PRN (06:10)
[2021-08-04] MEDS ORDERED: ACETAMINOPHEN TAB 650MG DOSE (2X325MG) PO PRN (06:10)
[2021-08-04] MEDS ORDERED: ELIQ5TAB PO (06:53)
[2021-08-04 07:35] LABS: BASO % 0.3 % (0.0-1.0); EOS # 0.1 10^3/uL (0.0-0.5); EOS % 1.8 % (0.0-3.0); HEMOGLOBIN 12.8 g/dl (12.0-15.5); LYMPH % 14.7 % (24.0-44.0); MEAN CORPUSCULAR HEMOGLOBIN 29.4 pg (27.0-33.0); MEAN CORPUSCULAR HGB CONC 31.2 g/dl (32.0-36.5); MONO # 0.7 10^3/uL (0.0-0.8); MONO % 11.1 % (2.0-8.0); NEUTROPHILS # 4.7 10^3/uL (1.5-8.5); NEUTROPHILS % 71.8 % (36.0-66.0); PLATELET COUNT, AUTOMATED 132 10^3/uL (150-450); RED BLOOD COUNT 4.36 10^6/uL (4.00-5.40); WHITE BLOOD COUNT 6.5 10^3/uL (4.0-10.0)
[2021-08-04 07:55] LABS: ALBUMIN 3.2 GM/DL (3.2-5.2); ALT/SGPT 18 U/L (12-78); BILIRUBIN,TOTAL 0.4 MG/DL (0.2-1.0); BLOOD UREA NITROGEN 14 MG/DL (7-18); CALCIUM LEVEL 9.6 MG/DL (8.8-10.2); CARBON DIOXIDE LEVEL 29 MEQ/L (21-32); CHLORIDE LEVEL 108 MEQ/L (98-107); CREATININE FOR GFR 0.77 MG/DL (0.55-1.30); GLOMERULAR FILTRATION RATE > 60.0 (>39); GLUCOSE, FASTING 121 MG/DL (70-100); MAGNESIUM LEVEL 2.3 MG/DL (1.8-2.4); POTASSIUM SERUM 4.2 MEQ/L (3.5-5.1); SODIUM LEVEL 140 MEQ/L (136-145); TOTAL PROTEIN 7.6 GM/DL (6.4-8.2)
[2021-08-04] MEDS: busPIRone 5 MG TAB PO SCH ×2 (09:53→21:06)
[2021-08-04 10:31] LABS: CA 125 6.8 U/ML (<30.2); CA19-9 TUMOR MARKER,CARBOHYDRA 10.1 U/ML (<35.0)
[2021-08-04] MEDS ORDERED: PILL CUTTER 1 EACH XX PRN (15:40)
[2021-08-04 17:05] VITALS: BP 108/70
[2021-08-04] MEDS ORDERED: ATORVASTATIN 20 MG TAB PO SCH (21:00)
[2021-08-04] MEDS ORDERED: DOCUSATE SODIUM 100MG CAPSULE PO SCH (21:00)
[2021-08-04] MEDS ORDERED: SIMETHICONE 80MG CHEW TAB PO SCH (21:00)
[2021-08-04] MEDS: APIXABAN 5 MG TAB (ELIQUIS) PO SCH (21:06)
[2021-08-04 22:00] VITALS: BP 112/68
[2021-08-05 06:00] VITALS: BP 127/68
[2021-08-05] MEDS: APIXABAN 5 MG TAB (ELIQUIS) PO SCH (08:16)
[2021-08-05] MEDS: busPIRone 5 MG TAB PO SCH (08:16)
[2021-08-05 08:17] VITALS: BP 132/72
[2021-08-05] MEDS ORDERED: METOPROLOL SUCC (TopROL XL) 100MG *XL* TAB PO SCH (09:00)
[2021-08-05 10:05] LABS: HEMATOCRIT 40.3 % (36.0-47.0); HEMOGLOBIN 12.7 g/dl (12.0-15.5); MEAN CORPUSCULAR HEMOGLOBIN 29.5 pg (27.0-33.0); MEAN CORPUSCULAR HGB CONC 31.5 g/dl (32.0-36.5); MEAN CORPUSCULAR VOLUME 93.7 fl (80.0-96.0); PLATELET COUNT, AUTOMATED 122 10^3/uL (150-450); WHITE BLOOD COUNT 6.6 10^3/uL (4.0-10.0)
[2021-08-05 10:26] LABS: BLOOD UREA NITROGEN 13 MG/DL (7-18); CALCIUM LEVEL 9.2 MG/DL (8.8-10.2); CARBON DIOXIDE LEVEL 28 MEQ/L (21-32); CHLORIDE LEVEL 108 MEQ/L (98-107); CREATININE FOR GFR 0.76 MG/DL (0.55-1.30); GLOMERULAR FILTRATION RATE > 60.0 (>39); GLUCOSE, FASTING 186 MG/DL (70-100); POTASSIUM SERUM 3.8 MEQ/L (3.5-5.1); SODIUM LEVEL 142 MEQ/L (136-145)
[2021-08-05] MEDS ORDERED: BISACODYL 10 MG SUPP PR ONE (11:10)
[2021-08-05] MEDS ORDERED: SIME125C4 PO (13:45)
[2021-08-05] MEDS ORDERED: ELIQ5TAB PO (13:45)
[2021-08-05] MEDS ORDERED: ATOR1TAB21 PO (13:45)
[2021-08-05] MEDS ORDERED: METF-838 PO (13:45)
[2021-08-05] MEDS ORDERED: COLA100C5 PO (13:45)
[2021-08-05] MEDS ORDERED: MIRA3350 PO (13:45)
[2021-08-05] MEDS ORDERED: BUSP5TA PO (13:45)
[2021-08-05] MEDS ORDERED: METO1TAB33 PO (13:45)
[2021-08-05 14:00] VITALS: BP 138/80
== END 2021-08-05 16:54 | disposition home health service (06) | DRG 378 ==
LOC: M ED 22:46 → M ED INP 08-04 06:09 → ENRESERV 08-04 15:21 → M MSPAV 08-04 16:36
PROVIDERS: ADMIT Family Medicine; ATTEND Internal Medicine
DX: K92.1 Melena (principal); I48.20 Chronic atrial fibrillation, unspecified; K56.41 Fecal impaction; E11.9 Type 2 diabetes mellitus without complications; I25.10 Atherosclerotic heart disease of native coronary artery without angina pectoris; I10 Essential (primary) hypertension; R63.4 Abnormal weight loss; E03.9 Hypothyroidism, unspecified; R10.9 Unspecified abdominal pain; Z79.01 Long term (current) use of anticoagulants; Z79.84 Long term (current) use of oral hypoglycemic drugs; F32.9 Major depressive disorder, single episode, unspecified; Z91.14 Patient's other noncompliance with medication regimen; Z90.49 Acquired absence of other specified parts of digestive tract; Z95.1 Presence of aortocoronary bypass graft; Z79.899 Other long term (current) drug therapy

== ENCOUNTER → 2022-07-04 | Outpatient (REF) | payer MEDICARE ==
[~2022-07-04] MED LIST changes: +ATOR1TAB21 PO; +BENA25TA5 PO; +COLA100C5 PO; +ELIQ2.5T PO; +ELIQ5TAB PO; +MIRA3350 PO; +POTA-150 PO; -POTA10TA17 PO; +SIME125C4 PO
[2022-07-04 18:23] LABS: BASO % 0.4 % (0.0-1.0); EOS % 0.4 % (0.0-3.0); HEMATOCRIT 45.3 % (36.0-47.0); LYMPH # 0.7 10^3/uL (1.5-5.0); LYMPH % 8.2 % (24.0-44.0); MEAN CORPUSCULAR HEMOGLOBIN 30.1 pg (27.0-33.0); MEAN CORPUSCULAR HGB CONC 33.1 g/dl (32.0-36.5); MEAN CORPUSCULAR VOLUME 90.8 fl (80.0-96.0); MONO # 0.6 10^3/uL (0.0-0.8); MONO % 7.3 % (2.0-8.0); NEUTROPHILS # 6.6 10^3/uL (1.5-8.5); NEUTROPHILS % 83.3 % (36.0-66.0); PLATELET COUNT, AUTOMATED 130 10^3/uL (150-450); RED BLOOD COUNT 4.99 10^6/uL (4.00-5.40); WHITE BLOOD COUNT 7.9 10^3/uL (4.0-10.0)
[2022-07-04 18:31] LABS: INR 0.99; PROTHROMBIN TIME 13.3 SECONDS (12.5-14.5)
[2022-07-04 18:52] LABS: ALBUMIN 3.5 G/DL (3.2-5.2); ALKALINE PHOSPHATASE 131 U/L (46-116); ALT/SGPT 10 U/L (7.0-40); AST/SGOT 13 U/L (<34); BILIRUBIN,TOTAL 0.7 MG/DL (0.3-1.2); BLOOD UREA NITROGEN 14 MG/DL (9-23); CALCIUM LEVEL 8.6 MG/DL (8.3-10.6); CARBON DIOXIDE LEVEL 26 MMOL/L (20-31); CHLORIDE LEVEL 104 MMOL/L (98-107); CHOLESTEROL LEVEL 187 MG/DL (<200); CHOLESTEROL RISK RATIO 3.48 (<5); CREATININE FOR GFR 0.66 MG/DL (0.55-1.30); GLOMERULAR FILTRATION RATE > 60.0 (>39); GLUCOSE, FASTING 113 MG/DL (74-106); HDL CHOLESTEROL 53.7 MG/DL (>40); LDL CHOLESTEROL 115.7 MG/DL (<100); NON-HDL-C 133.3 MG/DL; SODIUM LEVEL 138 MMOL/L (136-145); TOTAL PROTEIN 7.2 G/DL (5.7-8.2); TRIGLYCERIDES LEVEL 88 MG/DL (<150)
[2022-07-04 18:53] LABS: THYROID STIMULATING HORMONE 12.209 uIU/ML (0.55-4.78); TOTAL 25(OH) VITAMIN D 33.1 NG/ML (20.0-100.0)
== END ==
LOC: M LAB REF 17:51
PROVIDERS: ATTEND Nurse Practitioner Family
DX: I48.91 Unspecified atrial fibrillation (principal); Z13.228 Encounter for screening for other metabolic disorders

== ENCOUNTER → 2022-10-22 | Outpatient (REF) | payer MEDICARE ==
[2022-10-22 18:12] LABS: CHOLESTEROL RISK RATIO 3.53 (<5); LDL CHOLESTEROL 118.8 MG/DL (<100)
[2022-10-22 18:15] LABS: THYROID STIMULATING HORMONE 2.071 uIU/ML (0.55-4.78)
== END ==
LOC: M LAB REF 16:28
PROVIDERS: ATTEND Nurse Practitioner Family
DX: E03.9 Hypothyroidism, unspecified (principal); R79.89 Other specified abnormal findings of blood chemistry

== ENCOUNTER → 2023-02-22 | Outpatient (REF) | payer MEDICARE ==
[~2023-02-22] MED LIST changes: -OXYB5TAB10; +OXYB5TAB11
[2023-02-22 13:11] LABS: CHOLESTEROL RISK RATIO 3.61 (<5); HDL CHOLESTEROL 58.4 MG/DL (>40); LDL CHOLESTEROL 140.4 MG/DL (<100); NON-HDL-C 152.6 MG/DL
== END ==
LOC: M LAB REF 12:27
PROVIDERS: ATTEND Nurse Practitioner Family
DX: R79.89 Other specified abnormal findings of blood chemistry (principal)

== ENCOUNTER → 2023-06-13 | Outpatient (REF) | payer OTHER ==
[~2023-06-13] MED LIST changes: -OXYB5TAB11; +OXYB5TAB14
[2023-06-13 18:45] LABS: ALBUMIN 3.5 G/DL (3.2-5.2); ALKALINE PHOSPHATASE 126 U/L (46-116); ALT/SGPT 11 U/L (7.0-40); AST/SGOT 19 U/L (<34); BLOOD UREA NITROGEN 20 MG/DL (9-23); CALCIUM LEVEL 9.1 MG/DL (8.3-10.6); CARBON DIOXIDE LEVEL 26 MMOL/L (20-31); CHLORIDE LEVEL 102 MMOL/L (98-107); CHOLESTEROL LEVEL 205 MG/DL (<200); CHOLESTEROL RISK RATIO 3.82 (<5); CREATININE FOR GFR 0.75 MG/DL (0.55-1.30); GLOMERULAR FILTRATION RATE > 60.0 (>39); GLUCOSE, FASTING 141 MG/DL (74-106); HDL CHOLESTEROL 53.6 MG/DL (>40); LDL CHOLESTEROL 134.6 MG/DL (<100); MAGNESIUM LEVEL 1.9 MG/DL (1.8-2.4); NON-HDL-C 151.4 MG/DL; POTASSIUM SERUM 3.8 MMOL/L (3.5-5.1); SODIUM LEVEL 139 MMOL/L (136-145); TOTAL PROTEIN 7.3 G/DL (5.7-8.2); TRIGLYCERIDES LEVEL 84 MG/DL (<150)
[2023-06-13 18:46] LABS: BASO % 0.5 % (0.0-1.0); EOS % 0.4 % (0.0-3.0); HEMATOCRIT 45.8 % (36.0-47.0); HEMOGLOBIN 14.6 g/dl (12.0-15.5); LYMPH # 0.5 10^3/uL (1.5-5.0); LYMPH % 6.8 % (24.0-44.0); MEAN CORPUSCULAR HEMOGLOBIN 29.9 pg (27.0-33.0); MEAN CORPUSCULAR HGB CONC 31.9 g/dl (32.0-36.5); MEAN CORPUSCULAR VOLUME 93.7 fl (80.0-96.0); MONO # 0.4 10^3/uL (0.0-0.8); MONO % 5.7 % (2.0-8.0); NEUTROPHILS # 6.7 10^3/uL (1.5-8.5); NEUTROPHILS % 86.2 % (36.0-66.0); PLATELET COUNT, AUTOMATED 125 10^3/uL (150-450); RED BLOOD COUNT 4.89 10^6/uL (4.00-5.40); THYROID STIMULATING HORMONE 2.068 uIU/ML (0.55-4.78); WHITE BLOOD COUNT 7.8 10^3/uL (4.0-10.0)
[2023-06-13 19:10] LABS: HEMOGLOBIN A1c 4.9 % (4.0-6.0)
== END ==
LOC: M LAB REF 16:38
PROVIDERS: ATTEND Nurse Practitioner Family
DX: E66.3 Overweight (principal); Z79.899 Other long term (current) drug therapy

== ENCOUNTER → 2023-10-10 | Outpatient (REF) | payer OTHER ==
[2023-10-11 13:55] LABS: ALBUMIN 3.7 G/DL (3.2-5.2); ALKALINE PHOSPHATASE 122 U/L (46-116); ALT/SGPT 14 U/L (7.0-40); AST/SGOT 19 U/L (<34); BILIRUBIN,TOTAL 0.9 MG/DL (0.3-1.2); BLOOD UREA NITROGEN 18 MG/DL (9-23); CALCIUM LEVEL 9.7 MG/DL (8.3-10.6); CARBON DIOXIDE LEVEL 26 MMOL/L (20-31); CHLORIDE LEVEL 107 MMOL/L (98-107); CHOLESTEROL LEVEL 198 MG/DL (<200); CHOLESTEROL RISK RATIO 3.54 (<5); CREATININE FOR GFR 0.69 MG/DL (0.55-1.30); GLOMERULAR FILTRATION RATE > 60.0 (>39); GLUCOSE, FASTING 127 MG/DL (74-106); HDL CHOLESTEROL 55.8 MG/DL (>40); LDL CHOLESTEROL 124.4 MG/DL (<100); NON-HDL-C 142.2 MG/DL; POTASSIUM SERUM 4.3 MMOL/L (3.5-5.1); SODIUM LEVEL 140 MMOL/L (136-145); THYROID STIMULATING HORMONE 1.497 uIU/ML (0.55-4.78); TOTAL PROTEIN 7.6 G/DL (5.7-8.2); TRIGLYCERIDES LEVEL 89 MG/DL (<150)
[2023-10-11 14:03] LABS: BASO % 0.4 % (0.0-1.0); EOS % 0.1 % (0.0-3.0); HEMATOCRIT 46.4 % (36.0-47.0); HEMOGLOBIN 14.9 g/dl (12.0-15.5); LYMPH # 0.5 10^3/uL (1.5-5.0); LYMPH % 5.8 % (24.0-44.0); MEAN CORPUSCULAR HGB CONC 32.1 g/dl (32.0-36.5); MEAN CORPUSCULAR VOLUME 93.4 fl (80.0-96.0); MONO # 0.6 10^3/uL (0.0-0.8); MONO % 7.2 % (2.0-8.0); NEUTROPHILS % 86.3 % (36.0-66.0); PLATELET COUNT, AUTOMATED 110 10^3/uL (150-450); RED BLOOD COUNT 4.97 10^6/uL (4.00-5.40); WHITE BLOOD COUNT 8.1 10^3/uL (4.0-10.0)
== END ==
LOC: M LAB REF 13:17
PROVIDERS: ATTEND Nurse Practitioner Family
DX: E66.3 Overweight (principal); Z79.899 Other long term (current) drug therapy

== ENCOUNTER 2023-12-27 16:15 | Inpatient (IN) | payer OTHER ==
[~2023-12-27] VITALS: Ht 152.4 cm; Wt 62.5 kg
[2023-12-27] MEDS ORDERED: ISOVUE-370 76% 100ML VIAL As Ordered ONE (16:40)
[2023-12-27 16:46] LABS: BASO % 0.3 % (0.0-1.0); EOS % 0.1 % (0.0-3.0); HEMATOCRIT 45.3 % (36.0-47.0); HEMOGLOBIN 14.4 g/dl (12.0-15.5); LYMPH # 0.6 10^3/uL (1.5-5.0); LYMPH % 4.7 % (24.0-44.0); MEAN CORPUSCULAR HEMOGLOBIN 29.9 pg (27.0-33.0); MEAN CORPUSCULAR HGB CONC 31.8 g/dl (32.0-36.5); MEAN CORPUSCULAR VOLUME 94.2 fl (80.0-96.0); MONO # 0.9 10^3/uL (0.0-0.8); MONO % 6.7 % (2.0-8.0); NEUTROPHILS # 11.8 10^3/uL (1.5-8.5); NEUTROPHILS % 87.7 % (36.0-66.0); PLATELET COUNT, AUTOMATED 124 10^3/uL (150-450); RED BLOOD COUNT 4.81 10^6/uL (4.00-5.40); WHITE BLOOD COUNT 13.5 10^3/uL (4.0-10.0)
[2023-12-27 16:55] LABS: ABG BASE EXCESS -1.8 (-2.0-2.0); ABG HCO3 23.2 MMOL/L (22.0-26.0); ABG O2 SATURATION 92.8 % (95.0-99.0); ABG PARTIAL PRESSURE CO2 40.5 mmHg (35.0-45.0); ABG PARTIAL PRESSURE O2 65.1 mmHg (75.0-100.0); ABG STANDARD HCO3 22.9 MMOL/L. (22.0-26.0); ABG TOTAL CO2 24.4 MMOL/L (23.0-31.0); ABG pH (ARTERIAL) 7.376 UNITS (7.350-7.450)
[2023-12-27] MEDS: MORPHINE 2 MG/ML 1ML VIAL IV PRN (16:58)
[2023-12-27] MEDS: ONDANSETRON 4MG 2ML VIAL IV ONE ×2 (16:59→18:48)
[2023-12-27 17:06] LABS: ETHYL ALCOHOL (ETHANOL) < 0.003 % (0.000-0.010); LIPASE 22 U/L (12-53)
[2023-12-27 17:08] LABS: ALBUMIN 3.3 G/DL (3.2-5.2); ALKALINE PHOSPHATASE 118 U/L (35-104); ALT/SGPT 13 U/L (7.0-40); AMYLASE 57 U/L (30-118); AST/SGOT 26 U/L (<34); BILIRUBIN,DIRECT 0.4 MG/DL (<0.4); BILIRUBIN,TOTAL 1.2 MG/DL (0.3-1.2); BLOOD UREA NITROGEN 16 MG/DL (9-23); CALCIUM LEVEL 9.1 MG/DL (8.3-10.6); CARBON DIOXIDE LEVEL 25 MMOL/L (20-31); CHLORIDE LEVEL 105 MMOL/L (98-107); CK-MB VALUE MASS < 1.0 NG/ML (<3.6); CREATININE FOR GFR 0.68 MG/DL (0.55-1.30); GLOMERULAR FILTRATION RATE > 60.0 (>39); GLUCOSE, FASTING 159 MG/DL (74-106); POTASSIUM SERUM 4.1 MMOL/L (3.5-5.1); SODIUM LEVEL 140 MMOL/L (136-145); TOTAL PROTEIN 7.4 G/DL (5.7-8.2)
[2023-12-27 17:13] LABS: CPK CREATINE PHOSPHOKINASE 45 U/L (34-145); MB/CK RELATIVE INDEX 2.22 (< OR =4)
[2023-12-27 17:20] LABS: PROCALCITONIN 0.07 ng/ml
[2023-12-27] MEDS: NS 500 ML IV ONE (19:01)
[2023-12-27 19:07] LABS: INR 1.56; PARTIAL THROMBOPLASTIN TIME 30.1 SECONDS (24.8-34.2); PROTHROMBIN TIME 18.9 SECONDS (12.5-14.5)
[2023-12-27] MEDS ORDERED: ROSU20TA86 PO (19:31)
[2023-12-27] MEDS ORDERED: LEVO88TA3 PO (19:32)
[2023-12-27] MEDS ORDERED: OXYB-54 PO (19:32)
[2023-12-27] MEDS ORDERED: METO1TAB7 PO (19:33)
[2023-12-27] MEDS ORDERED: HOME MED LIST COMPLETE! XX SCH (19:35)
[2023-12-27] MEDS: ACETAMINOPHEN *IV* 1,000 MG in IV 1 EA IV ONE (19:46)
[2023-12-27] MEDS: METOPROLOL SUCC (TopROL XL) 50MG **XL** TAB PO SCH (21:36)
[2023-12-27] MEDS: ROSUVASTATIN 10 MG TAB (CRESTOR) PO SCH (21:36)
[2023-12-27] MEDS: LIDOCAINE 2% 5ML JELLY UROJET TOP ONE (21:40)
[2023-12-27 22:04] LABS: APPEARANCE, URINE HAZY (CLEAR); BACTERIA, URINE AUTO NEGATIVE (NEGATIVE); BILIRUBIN, URINE AUTO NEGATIVE (NEGATIVE); BLOOD, URINE BLOOD NEGATIVE (NEGATIVE); COLOR, URINE YELLOW (YELLOW); GLUCOSE, URINE (UA) AUTO NEGATIVE (NEGATIVE); KETONE, URINE AUTO 1+ mg/dL (NEGATIVE); LEUKOCYTE ESTERASE, URINE AUTO 2+ (NEGATIVE); NITRITE, URINE AUTO NEGATIVE (NEGATIVE); PROTEIN, URINE AUTO NEGATIVE (NEGATIVE); RBC, URINE AUTO 0 /HPF (0-3); SQUAMOUS EPITHELIAL CELL UR AU 13 /HPF (0-6); WBC, URINE AUTO 9 /HPF (0-3)
[2023-12-27 22:12] LABS: SPECIFIC GRAVITY URINE AUTO >1.060 (1.002-1.035)
[2023-12-27 22:19] LABS: AMPHETAMINES LEVEL URINE NEGATIVE (NEGATIVE); BARBITURATES URINE NEGATIVE (NEGATIVE)
[2023-12-27 22:20] LABS: BENZODIAZEPINES URINE NEGATIVE (NEGATIVE); CANNABINOIDS URINE NEGATIVE (NEGATIVE); COCAINE METABOLITE URINE NEGATIVE (NEGATIVE); METHADONE URINE NEGATIVE (NEGATIVE); PHENCYCLIDINE URINE NEGATIVE (NEGATIVE)
[2023-12-27 22:31] LABS: OPIATES URINE POSITIVE (NEGATIVE)
[2023-12-27] MEDS: LEVALBUTEROL 1.25MG 0.5ML CONCENTRATE NEB NEB STA (22:33)
[2023-12-27 22:59] LABS: HEMATOCRIT 46.7 % (36.0-47.0); HEMOGLOBIN 15.1 g/dl (12.0-15.5); MEAN CORPUSCULAR HEMOGLOBIN 30.1 pg (27.0-33.0); MEAN CORPUSCULAR HGB CONC 32.3 g/dl (32.0-36.5); MEAN CORPUSCULAR VOLUME 93.2 fl (80.0-96.0); PLATELET COUNT, AUTOMATED 108 10^3/uL (150-450); RED BLOOD COUNT 5.01 10^6/uL (4.00-5.40); WHITE BLOOD COUNT 19.1 10^3/uL (4.0-10.0)
[2023-12-27 23:00] VITALS: O2SAT 95
[2023-12-27 23:07] VITALS: BP 143/99; TEMP 96.9; O2SAT 95
[2023-12-27 23:22] LABS: CK-MB VALUE MASS < 1.0 NG/ML (<3.6)
[2023-12-27 23:32] LABS: CPK CREATINE PHOSPHOKINASE 42 U/L (34-145); MB/CK RELATIVE INDEX 2.38 (< OR =4)
[2023-12-27] MEDS: oxyBUTYnin *DITROPAN XL* 5 MG TABCR PO SCH (23:39)
[2023-12-27] MEDS: busPIRone 5 MG TAB PO SCH (23:39)
[2023-12-27] MEDS: MORPHINE 4 MG/ML 1ML VIAL IV PRN (23:39)
[2023-12-27] MEDS: cefTRIAXone SOD 1 GM in DEXTROSE 5% (D5W) ADV/MINI-BAG 50 ML IV ONE (23:40)
[2023-12-27] MEDS: AZITHROMYCIN 250MG TABLET PO ONE (23:40)
[2023-12-28] VITALS (32 sets, daily range): BP systolic 107–143; BP diastolic 67–87; TEMP 97–98.9; O2SAT 88–98
[2023-12-28] MEDS: FUROSEMIDE 40MG/4ML VIAL IV ONE (03:08)
[2023-12-28] MEDS: ONDANSETRON 4MG 2ML VIAL IV PRN (03:35)
[2023-12-28] MEDS: LEVOTHYROXINE 88MCG TABLET (0.088 MG) PO SCH (05:16)
[2023-12-28 06:19] LABS: HEMATOCRIT 47.1 % (36.0-47.0); HEMOGLOBIN 14.8 g/dl (12.0-15.5); MEAN CORPUSCULAR HEMOGLOBIN 29.5 pg (27.0-33.0); MEAN CORPUSCULAR HGB CONC 31.4 g/dl (32.0-36.5); MEAN CORPUSCULAR VOLUME 93.8 fl (80.0-96.0); PLATELET COUNT, AUTOMATED 104 10^3/uL (150-450); RED BLOOD COUNT 5.02 10^6/uL (4.00-5.40); WHITE BLOOD COUNT 17.9 10^3/uL (4.0-10.0)
[2023-12-28 06:40] LABS: ALBUMIN 3.1 G/DL (3.2-5.2); ALKALINE PHOSPHATASE 115 U/L (35-104); ALT/SGPT 17 U/L (7.0-40); AST/SGOT 24 U/L (<34); BILIRUBIN,TOTAL 1.1 MG/DL (0.3-1.2); BLOOD UREA NITROGEN 19 MG/DL (9-23); CALCIUM LEVEL 9.1 MG/DL (8.3-10.6); CARBON DIOXIDE LEVEL 26 MMOL/L (20-31); CHLORIDE LEVEL 104 MMOL/L (98-107); CREATININE FOR GFR 0.76 MG/DL (0.55-1.30); GLOMERULAR FILTRATION RATE > 60.0 (>39); GLUCOSE, FASTING 154 MG/DL (74-106); POTASSIUM SERUM 4.6 MMOL/L (3.5-5.1); SODIUM LEVEL 138 MMOL/L (136-145); TOTAL PROTEIN 7.5 G/DL (5.7-8.2)
[2023-12-28] MEDS ORDERED: DEXTROSE 50% 50ML SYRINGE IV PRN (11:25)
[2023-12-28] MEDS ORDERED: GLUCOSE 4 GM CHEW PO PRN (11:25)
[2023-12-28] MEDS ORDERED: GLUCAGON INJ 1MG VIAL SC PRN (11:25)
[2023-12-28] MEDS: INSULIN LISPRO (NovoLOG) PER UNIT SC SCH (12:32)
[2023-12-28 16:43] LABS: HEMOGLOBIN A1c 5.2 % (4.0-6.0)
[2023-12-28 16:52] LABS: BLOOD UREA NITROGEN 22 MG/DL (9-23); CALCIUM LEVEL 9.1 MG/DL (8.3-10.6); CARBON DIOXIDE LEVEL 29 MMOL/L (20-31); CHLORIDE LEVEL 102 MMOL/L (98-107); CREATININE FOR GFR 0.89 MG/DL (0.55-1.30); GLOMERULAR FILTRATION RATE > 60.0 (>39); GLUCOSE, FASTING 124 MG/DL (74-106); POTASSIUM SERUM 4.5 MMOL/L (3.5-5.1); SODIUM LEVEL 139 MMOL/L (136-145)
[2023-12-28] MEDS: cefTRIAXone SOD 1 GM in DEXTROSE 5% (D5W) ADV/MINI-BAG 50 ML IV SCH (20:43)
[2023-12-28] MEDS ORDERED: INSULIN LISPRO (NovoLOG) PER UNIT SC SCH (21:00)
[2023-12-29] VITALS (24 sets, daily range): BP systolic 111–120; BP diastolic 72–89; TEMP 96.6–97.6; O2SAT 90–98
[2023-12-29 06:41] LABS: HEMATOCRIT 43.2 % (36.0-47.0); HEMOGLOBIN 13.5 g/dl (12.0-15.5); MEAN CORPUSCULAR HEMOGLOBIN 29.4 pg (27.0-33.0); MEAN CORPUSCULAR HGB CONC 31.3 g/dl (32.0-36.5); MEAN CORPUSCULAR VOLUME 94.1 fl (80.0-96.0); RED BLOOD COUNT 4.59 10^6/uL (4.00-5.40); WHITE BLOOD COUNT 15.9 10^3/uL (4.0-10.0)
[2023-12-29 07:06] LABS: BLOOD UREA NITROGEN 29 MG/DL (9-23); CALCIUM LEVEL 9.3 MG/DL (8.3-10.6); CARBON DIOXIDE LEVEL 30 MMOL/L (20-31); CHLORIDE LEVEL 101 MMOL/L (98-107); CREATININE FOR GFR 0.83 MG/DL (0.55-1.30); GLOMERULAR FILTRATION RATE > 60.0 (>39); GLUCOSE, FASTING 177 MG/DL (74-106); SODIUM LEVEL 137 MMOL/L (136-145)
[2023-12-29 07:07] LABS: PLATELET COUNT, AUTOMATED 89 10^3/uL (150-450)
[2023-12-29] MEDS: ACETAMINOPHEN 325 MG TAB PO PRN (10:11)
[2023-12-29] MEDS: FUROSEMIDE 40MG/4ML VIAL IV PRN (10:13)
[2023-12-29 16:25] LABS: BLOOD UREA NITROGEN 28 MG/DL (9-23); CALCIUM LEVEL 9.1 MG/DL (8.3-10.6); CARBON DIOXIDE LEVEL 29 MMOL/L (20-31); CHLORIDE LEVEL 99 MMOL/L (98-107); CREATININE FOR GFR 0.83 MG/DL (0.55-1.30); GLOMERULAR FILTRATION RATE > 60.0 (>39); GLUCOSE, FASTING 130 MG/DL (74-106); POTASSIUM SERUM 3.8 MMOL/L (3.5-5.1); SODIUM LEVEL 137 MMOL/L (136-145)
[2023-12-29] MEDS: FUROSEMIDE 40MG/4ML VIAL IV SCH (20:32)
[2023-12-29] MEDS: POTASSIUM CHLORIDE 10MEQ SR TABLET PO ONE (22:52)
[2023-12-30] VITALS (17 sets, daily range): BP systolic 94–138; BP diastolic 57–85; TEMP 97.4–98.9; O2SAT 90–100
[2023-12-30] MEDS: FUROSEMIDE 40MG/4ML VIAL IV ONE (01:14)
[2023-12-30 06:28] LABS: HEMOGLOBIN 13.8 g/dl (12.0-15.5); MEAN CORPUSCULAR HEMOGLOBIN 29.9 pg (27.0-33.0); MEAN CORPUSCULAR HGB CONC 32.9 g/dl (32.0-36.5); MEAN CORPUSCULAR VOLUME 90.9 fl (80.0-96.0); PLATELET COUNT, AUTOMATED 111 10^3/uL (150-450); RED BLOOD COUNT 4.62 10^6/uL (4.00-5.40); WHITE BLOOD COUNT 12.6 10^3/uL (4.0-10.0)
[2023-12-30 06:50] LABS: BLOOD UREA NITROGEN 27 MG/DL (9-23); CALCIUM LEVEL 8.6 MG/DL (8.3-10.6); CARBON DIOXIDE LEVEL 28 MMOL/L (20-31); CHLORIDE LEVEL 98 MMOL/L (98-107); CREATININE FOR GFR 0.88 MG/DL (0.55-1.30); GLOMERULAR FILTRATION RATE > 60.0 (>39); GLUCOSE, FASTING 130 MG/DL (74-106); SODIUM LEVEL 137 MMOL/L (136-145)
[2023-12-30] MEDS: FUROSEMIDE 40MG/4ML VIAL IV SCH (14:00)
[2023-12-31] VITALS (29 sets, daily range): BP systolic 100–121; BP diastolic 67–77; TEMP 97.8–98.3; O2SAT 87–99
[2023-12-31 08:25] LABS: HEMATOCRIT 42.6 % (36.0-47.0); HEMOGLOBIN 13.9 g/dl (12.0-15.5); MEAN CORPUSCULAR HEMOGLOBIN 30.5 pg (27.0-33.0); MEAN CORPUSCULAR HGB CONC 32.6 g/dl (32.0-36.5); MEAN CORPUSCULAR VOLUME 93.6 fl (80.0-96.0); RED BLOOD COUNT 4.55 10^6/uL (4.00-5.40)
[2023-12-31 08:43] LABS: BLOOD UREA NITROGEN 28 MG/DL (9-23); CALCIUM LEVEL 8.9 MG/DL (8.3-10.6); CARBON DIOXIDE LEVEL 35 MMOL/L (20-31); CHLORIDE LEVEL 97 MMOL/L (98-107); CREATININE FOR GFR 0.78 MG/DL (0.55-1.30); GLOMERULAR FILTRATION RATE > 60.0 (>39); GLUCOSE, FASTING 114 MG/DL (74-106); SODIUM LEVEL 136 MMOL/L (136-145)
[2023-12-31 09:01] LABS: PLATELET COUNT, AUTOMATED 82 10^3/uL (150-450)
[2023-12-31] MEDS ORDERED: METOPROLOL SUCC *XL* 25MG TAB (TopROL *XL*) PO ONE (11:45)
[2023-12-31] MEDS: DIGOXIN 0.25 MG TAB PO ONE (12:44)
[2023-12-31] MEDS: MIRALAX *UNIT DOSE* 17GM PACKET PO SCH (12:44)
[2023-12-31] MEDS: FUROSEMIDE 40 MG TAB PO SCH (16:59)
[2023-12-31] MEDS: CEFDINIR 300 MG CAP (OMNICEF) PO SCH (20:27)
[2023-12-31] MEDS: METOPROLOL SUCC *XL* 25MG TAB (TopROL *XL*) PO SCH (20:29)
[2023-12-31] MEDS: SENOKOT S TAB PO SCH (20:29)
[2023-12-31 23:53] LABS: URINE STREP PNEUMONIAE ANTIGEN DETECTED (NOT DETECT)
[2024-01-01] VITALS (23 sets, daily range): BP systolic 107–125; BP diastolic 64–98; TEMP 89.4–98.2; O2SAT 89–99
[2024-01-01] MEDS: oxyCODONE 5MG TAB PO PRN (01:41)
[2024-01-01 05:53] LABS: HEMATOCRIT 37.1 % (36.0-47.0); MEAN CORPUSCULAR HEMOGLOBIN 29.9 pg (27.0-33.0); MEAN CORPUSCULAR HGB CONC 32.3 g/dl (32.0-36.5); MEAN CORPUSCULAR VOLUME 92.5 fl (80.0-96.0); RED BLOOD COUNT 4.01 10^6/uL (4.00-5.40); WHITE BLOOD COUNT 9.5 10^3/uL (4.0-10.0)
[2024-01-01 05:59] LABS: PLATELET COUNT, AUTOMATED 89 10^3/uL (150-450)
[2024-01-01 06:15] LABS: BLOOD UREA NITROGEN 23 MG/DL (9-23); CALCIUM LEVEL 8.6 MG/DL (8.3-10.6); CARBON DIOXIDE LEVEL 34 MMOL/L (20-31); CHLORIDE LEVEL 97 MMOL/L (98-107); GLOMERULAR FILTRATION RATE > 60.0 (>39); GLUCOSE, FASTING 111 MG/DL (74-106); POTASSIUM SERUM 3.8 MMOL/L (3.5-5.1); SODIUM LEVEL 136 MMOL/L (136-145)
[2024-01-01] MEDS: METOPROLOL SUCC (TopROL XL) 50MG **XL** TAB PO SCH (09:23)
[2024-01-01] MEDS: FUROSEMIDE 40 MG TAB PO SCH (09:24)
[2024-01-01] MEDS: DIGOXIN 0.25 MG TAB PO SCH (09:24)
[2024-01-01] MEDS: MOM 30ML SUSPENSION UDC PO PRN (17:16)
[2024-01-02] VITALS (10 sets, daily range): BP systolic 111–138; BP diastolic 60–75; TEMP 96.8–98.3; O2SAT 92–100
[2024-01-02 07:06] LABS: HEMATOCRIT 37.8 % (36.0-47.0); HEMOGLOBIN 12.2 g/dl (12.0-15.5); MEAN CORPUSCULAR HGB CONC 32.3 g/dl (32.0-36.5); MEAN CORPUSCULAR VOLUME 93.1 fl (80.0-96.0); RED BLOOD COUNT 4.06 10^6/uL (4.00-5.40); WHITE BLOOD COUNT 8.3 10^3/uL (4.0-10.0)
[2024-01-02 07:18] LABS: PLATELET COUNT, AUTOMATED 98 10^3/uL (150-450)
[2024-01-02 07:28] LABS: BLOOD UREA NITROGEN 23 MG/DL (9-23); CALCIUM LEVEL 8.8 MG/DL (8.3-10.6); CARBON DIOXIDE LEVEL 36 MMOL/L (20-31); CHLORIDE LEVEL 97 MMOL/L (98-107); GLOMERULAR FILTRATION RATE > 60.0 (>39); GLUCOSE, FASTING 118 MG/DL (74-106); POTASSIUM SERUM 3.8 MMOL/L (3.5-5.1); SODIUM LEVEL 136 MMOL/L (136-145)
[2024-01-02] MEDS ORDERED: ONDANSETRON 4MG 2ML VIAL As Ordered ONE (11:38)
[2024-01-02] MEDS ORDERED: propofoL 200 MG/20 ML VIAL As Ordered ONE (11:38)
[2024-01-02] MEDS ORDERED: ACETAMINOPHEN 1000MG/100ML IV BAG As Ordered ONE (11:38)
[2024-01-02] MEDS ORDERED: fentaNYL 100 MCG/2 ML INJECTION As Ordered ONE (11:38)
[2024-01-02] MEDS ORDERED: LIDOCAINE 2% 100MG/5ML SDV (FOR ANES.) As Ordered ONE (11:38)
[2024-01-02] MEDS ORDERED: ETOMIDATE INJ 20MG/10ML VIAL As Ordered ONE (11:42)
[2024-01-02] MEDS: TRANEXAMIC ACID 100 MG/ML 10ML VIAL As Ordered ONE (12:02)
[2024-01-02] MEDS: ceFAZolin 2 GM/D5W 50 ML IV BAG As Ordered ONE (13:10)
[2024-01-02] MEDS ORDERED: ROCURONIUM BROMIDE 50MG/5ML VIAL As Ordered ONE (13:37)
[2024-01-02] MEDS: VANCOMYCIN 1000MG/20ML VIAL As Ordered ONE (14:12)
[2024-01-02] MEDS ORDERED: SUGAMMADEX SODIUM 500 MG/5 ML VIAL (BRIDION) As Ordered ONE (14:21)
[2024-01-02] MEDS ORDERED: fentaNYL 100 MCG/2 ML INJECTION IV PRN (14:30)
[2024-01-02] MEDS: LR 1,000 ML IV SCH (14:30)
[2024-01-02] MEDS: ONDANSETRON 4MG 2ML VIAL IV PRN (15:05)
[2024-01-02] MEDS: HYDROMORPHONE HCL 0.5 MG/ 0.5 ML SYRINGE IV PRN (15:07)
[2024-01-03] VITALS (8 sets, daily range): BP systolic 98–122; BP diastolic 54–83; TEMP 96.8–98.2; O2SAT 82–99
[2024-01-03 06:12] LABS: HEMATOCRIT 33.7 % (36.0-47.0); MEAN CORPUSCULAR HEMOGLOBIN 29.8 pg (27.0-33.0); MEAN CORPUSCULAR HGB CONC 32.6 g/dl (32.0-36.5); MEAN CORPUSCULAR VOLUME 91.3 fl (80.0-96.0); PLATELET COUNT, AUTOMATED 125 10^3/uL (150-450); RED BLOOD COUNT 3.69 10^6/uL (4.00-5.40); WHITE BLOOD COUNT 13.6 10^3/uL (4.0-10.0)
[2024-01-03 06:29] LABS: BLOOD UREA NITROGEN 19 MG/DL (9-23); CALCIUM LEVEL 8.7 MG/DL (8.3-10.6); CARBON DIOXIDE LEVEL 33 MMOL/L (20-31); CHLORIDE LEVEL 98 MMOL/L (98-107); CREATININE FOR GFR 0.59 MG/DL (0.55-1.30); GLOMERULAR FILTRATION RATE > 60.0 (>39); GLUCOSE, FASTING 124 MG/DL (74-106); POTASSIUM SERUM 4.7 MMOL/L (3.5-5.1); SODIUM LEVEL 135 MMOL/L (136-145)
[2024-01-03] MEDS: KETOROLAC 30 MG/ML 1ML VIAL IV SCH (09:35)
[2024-01-04 04:00] VITALS: BP 128/69; TEMP 98.1; O2SAT 97
[2024-01-04 06:06] LABS: HEMATOCRIT 32.2 % (36.0-47.0); HEMOGLOBIN 10.1 g/dl (12.0-15.5); MEAN CORPUSCULAR HEMOGLOBIN 29.7 pg (27.0-33.0); MEAN CORPUSCULAR HGB CONC 31.4 g/dl (32.0-36.5); MEAN CORPUSCULAR VOLUME 94.7 fl (80.0-96.0); PLATELET COUNT, AUTOMATED 115 10^3/uL (150-450); WHITE BLOOD COUNT 13.2 10^3/uL (4.0-10.0)
[2024-01-04 06:24] LABS: BLOOD UREA NITROGEN 23 MG/DL (9-23); CALCIUM LEVEL 8.6 MG/DL (8.3-10.6); CARBON DIOXIDE LEVEL 33 MMOL/L (20-31); CHLORIDE LEVEL 97 MMOL/L (98-107); CREATININE FOR GFR 0.77 MG/DL (0.55-1.30); GLOMERULAR FILTRATION RATE > 60.0 (>39); GLUCOSE, FASTING 111 MG/DL (74-106); POTASSIUM SERUM 4.1 MMOL/L (3.5-5.1); SODIUM LEVEL 133 MMOL/L (136-145)
[2024-01-04] MEDS: APIXABAN 5 MG TAB (ELIQUIS) PO SCH (09:00)
[2024-01-04 12:00] VITALS: BP 114/65; TEMP 98.2; O2SAT 96
[2024-01-04 19:34] VITALS: BP 115/66; TEMP 98.1; O2SAT 99
[2024-01-05 03:56] VITALS: BP 115/70; TEMP 98.2; O2SAT 100
[2024-01-05 19:23] VITALS: BP 106/59; TEMP 98.1; O2SAT 95
[2024-01-06 03:42] VITALS: BP 125/63; TEMP 98.2; O2SAT 96
[2024-01-06 08:35] LABS: BASO % 0.4 % (0.0-1.0); EOS # 0.2 10^3/uL (0.0-0.5); HEMOGLOBIN 8.8 g/dl (12.0-15.5); LYMPH % 9.3 % (24.0-44.0); MEAN CORPUSCULAR HGB CONC 32.6 g/dl (32.0-36.5); MEAN CORPUSCULAR VOLUME 92.2 fl (80.0-96.0); MONO # 1.2 10^3/uL (0.0-0.8); MONO % 11.3 % (2.0-8.0); NEUTROPHILS % 75.3 % (36.0-66.0); PLATELET COUNT, AUTOMATED 141 10^3/uL (150-450); RED BLOOD COUNT 2.93 10^6/uL (4.00-5.40); WHITE BLOOD COUNT 10.6 10^3/uL (4.0-10.0)
[2024-01-06 09:06] LABS: BLOOD UREA NITROGEN 17 MG/DL (9-23); CALCIUM LEVEL 8.1 MG/DL (8.3-10.6); CARBON DIOXIDE LEVEL 32 MMOL/L (20-31); CHLORIDE LEVEL 96 MMOL/L (98-107); CREATININE FOR GFR 0.63 MG/DL (0.55-1.30); GLOMERULAR FILTRATION RATE > 60.0 (>39); GLUCOSE, FASTING 119 MG/DL (74-106); POTASSIUM SERUM 4.4 MMOL/L (3.5-5.1); SODIUM LEVEL 132 MMOL/L (136-145)
[2024-01-06 12:00] VITALS: BP 128/59; TEMP 97.9; O2SAT 94
[2024-01-06 20:00] VITALS: BP 126/62; TEMP 97.9; O2SAT 92
[2024-01-06] MEDS: NAPROXEN 250 MG TAB PO SCH (21:44)
[2024-01-07 04:00] VITALS: BP 132/70; TEMP 97.7; O2SAT 94
[2024-01-07 05:59] LABS: BASO % 0.3 % (0.0-1.0); EOS # 0.2 10^3/uL (0.0-0.5); EOS % 1.4 % (0.0-3.0); HEMATOCRIT 27.4 % (36.0-47.0); HEMOGLOBIN 8.9 g/dl (12.0-15.5); LYMPH # 0.9 10^3/uL (1.5-5.0); LYMPH % 7.5 % (24.0-44.0); MEAN CORPUSCULAR HGB CONC 32.5 g/dl (32.0-36.5); MEAN CORPUSCULAR VOLUME 92.3 fl (80.0-96.0); MONO # 1.4 10^3/uL (0.0-0.8); MONO % 11.8 % (2.0-8.0); NEUTROPHILS # 9.2 10^3/uL (1.5-8.5); NEUTROPHILS % 77.5 % (36.0-66.0); PLATELET COUNT, AUTOMATED 148 10^3/uL (150-450); RED BLOOD COUNT 2.97 10^6/uL (4.00-5.40); WHITE BLOOD COUNT 11.9 10^3/uL (4.0-10.0)
[2024-01-07 06:25] LABS: BLOOD UREA NITROGEN 17 MG/DL (9-23); CALCIUM LEVEL 8.2 MG/DL (8.3-10.6); CARBON DIOXIDE LEVEL 33 MMOL/L (20-31); CHLORIDE LEVEL 94 MMOL/L (98-107); CREATININE FOR GFR 0.69 MG/DL (0.55-1.30); GLOMERULAR FILTRATION RATE > 60.0 (>39); GLUCOSE, FASTING 125 MG/DL (74-106); POTASSIUM SERUM 4.4 MMOL/L (3.5-5.1); SODIUM LEVEL 131 MMOL/L (136-145)
[2024-01-07] MEDS ORDERED: NS (Normal Saline) 0.9% 1,000 ML IV SCH (09:00)
[2024-01-07 11:56] VITALS: BP 114/64; TEMP 98.1; O2SAT 94
[2024-01-07] MEDS: NS 500 ML IV ONE (12:22)
[2024-01-07 20:37] VITALS: BP 127/61; TEMP 97.9; O2SAT 93
[2024-01-08] MEDS ORDERED: PILL CUTTER 1 EACH XX ONE (03:02)
[2024-01-08] MEDS: oxyCODONE 5MG TAB PO PRN (03:05)
[2024-01-08 04:24] VITALS: BP 127/62; TEMP 98.1; O2SAT 95
[2024-01-08 05:56] LABS: HEMATOCRIT 26.6 % (36.0-47.0); HEMOGLOBIN 8.6 g/dl (12.0-15.5); MEAN CORPUSCULAR HEMOGLOBIN 29.9 pg (27.0-33.0); MEAN CORPUSCULAR HGB CONC 32.3 g/dl (32.0-36.5); MEAN CORPUSCULAR VOLUME 92.4 fl (80.0-96.0); PLATELET COUNT, AUTOMATED 176 10^3/uL (150-450); RED BLOOD COUNT 2.88 10^6/uL (4.00-5.40); WHITE BLOOD COUNT 11.4 10^3/uL (4.0-10.0)
[2024-01-08 06:24] LABS: ALBUMIN 2.4 G/DL (3.2-5.2); ALKALINE PHOSPHATASE 98 U/L (35-104); ALT/SGPT 16 U/L (7.0-40); AST/SGOT 29 U/L (<34); BILIRUBIN,TOTAL 1.5 MG/DL (0.3-1.2); BLOOD UREA NITROGEN 16 MG/DL (9-23); CALCIUM LEVEL 8.7 MG/DL (8.3-10.6); CARBON DIOXIDE LEVEL 32 MMOL/L (20-31); CHLORIDE LEVEL 98 MMOL/L (98-107); CREATININE FOR GFR 0.67 MG/DL (0.55-1.30); GLOMERULAR FILTRATION RATE > 60.0 (>39); GLUCOSE, FASTING 114 MG/DL (74-106); POTASSIUM SERUM 4.5 MMOL/L (3.5-5.1); SODIUM LEVEL 132 MMOL/L (136-145); TOTAL PROTEIN 5.6 G/DL (5.7-8.2)
[2024-01-08 07:56] LABS: THYROID STIMULATING HORMONE 19.422 uIU/ML (0.55-4.78)
[2024-01-08 12:00] VITALS: BP 115/45; TEMP 98.1; O2SAT 95
[2024-01-08 19:38] VITALS: BP 145/74; TEMP 98.9; O2SAT 93
[2024-01-08 19:44] LABS: FREE T4 1.1 NG/DL (0.89-1.76)
[2024-01-08 19:47] LABS: FREE T3 2.5 PG/ML (2.3-4.2)
[2024-01-09 04:00] VITALS: BP 132/71; TEMP 98.2; O2SAT 99
[2024-01-09] MEDS: LEVOTHYROXINE 112MCG TABLET (0.112MG) PO SCH (05:12)
[2024-01-09 06:20] LABS: HEMATOCRIT 27.9 % (36.0-47.0); HEMOGLOBIN 8.9 g/dl (12.0-15.5); MEAN CORPUSCULAR HGB CONC 31.9 g/dl (32.0-36.5); MEAN CORPUSCULAR VOLUME 93.9 fl (80.0-96.0); PLATELET COUNT, AUTOMATED 194 10^3/uL (150-450); RED BLOOD COUNT 2.97 10^6/uL (4.00-5.40); WHITE BLOOD COUNT 15.1 10^3/uL (4.0-10.0)
[2024-01-09 06:41] LABS: ALBUMIN 2.4 G/DL (3.2-5.2); ALKALINE PHOSPHATASE 103 U/L (35-104); ALT/SGPT 17 U/L (7.0-40); AST/SGOT 29 U/L (<34); BILIRUBIN,TOTAL 1.5 MG/DL (0.3-1.2); BLOOD UREA NITROGEN 16 MG/DL (9-23); CALCIUM LEVEL 8.4 MG/DL (8.3-10.6); CARBON DIOXIDE LEVEL 31 MMOL/L (20-31); CHLORIDE LEVEL 99 MMOL/L (98-107); CREATININE FOR GFR 0.66 MG/DL (0.55-1.30); GLOMERULAR FILTRATION RATE > 60.0 (>39); GLUCOSE, FASTING 116 MG/DL (74-106); POTASSIUM SERUM 4.6 MMOL/L (3.5-5.1); SODIUM LEVEL 131 MMOL/L (136-145); TOTAL PROTEIN 5.6 G/DL (5.7-8.2)
[2024-01-09 09:29] LABS: PROCALCITONIN 0.14 ng/ml
[2024-01-09] MEDS: SUCRALFATE SUSP 1GM/10ML UD PO ONE (10:18)
[2024-01-09] MEDS: PANTOPRAZOLE 40MG TAB (PROTONIX) PO SCH (10:18)
[2024-01-09 12:00] VITALS: BP 117/65; TEMP 98.1; O2SAT 94
[2024-01-09 13:54] LABS: OSMOLALITY URINE 369 MOSM/KG (50-1400)
[2024-01-09 13:57] LABS: KETONE, URINE AUTO RFX NEGATIVE (NEGATIVE); LEUKOCYTE ESTERASE UR AUTO RFX NEGATIVE (NEGATIVE); MUCUS, URINE RFX SMALL (NEGATIVE); NITRITE, URINE AUTO RFX NEGATIVE (NEGATIVE); RBC, URINE AUTO RFX 1 /HPF (0-3); SQUAM EPITHELIAL CELL UR AURFX 1 /HPF (0-6); WBC, URINE AUTO RFX 1 /HPF (0-3)
[2024-01-09 14:44] LABS: SODIUM,RANDOM URINE 20 MMOL/L
[2024-01-09 16:54] LABS: CHOLESTEROL RISK RATIO 3.05 (<5); HDL CHOLESTEROL 39.3 MG/DL (>40); LDL CHOLESTEROL 62.9 MG/DL (<100); NON-HDL-C 80.7 MG/DL
[2024-01-09 19:45] VITALS: O2SAT 84
[2024-01-09 19:50] VITALS: BP 115/65; TEMP 97.5; O2SAT 99
[2024-01-10] VITALS (7 sets, daily range): BP systolic 108–113; BP diastolic 52–55; TEMP 97.7–98.2; O2SAT 80–100
[2024-01-10 05:38] LABS: HEMATOCRIT 26.1 % (36.0-47.0); HEMOGLOBIN 8.3 g/dl (12.0-15.5); MEAN CORPUSCULAR HEMOGLOBIN 30.5 pg (27.0-33.0); MEAN CORPUSCULAR HGB CONC 31.8 g/dl (32.0-36.5); PLATELET COUNT, AUTOMATED 206 10^3/uL (150-450); RED BLOOD COUNT 2.72 10^6/uL (4.00-5.40); WHITE BLOOD COUNT 11.2 10^3/uL (4.0-10.0)
[2024-01-10 06:02] LABS: CORTISOL AM 13.4 UG/DL (4.3-22.4)
[2024-01-10 06:03] LABS: ALBUMIN 2.4 G/DL (3.2-5.2); ALKALINE PHOSPHATASE 104 U/L (35-104); ALT/SGPT 15 U/L (7.0-40); AST/SGOT 24 U/L (<34); BILIRUBIN,TOTAL 1.4 MG/DL (0.3-1.2); BLOOD UREA NITROGEN 12 MG/DL (9-23); CALCIUM LEVEL 8.5 MG/DL (8.3-10.6); CARBON DIOXIDE LEVEL 33 MMOL/L (20-31); CHLORIDE LEVEL 98 MMOL/L (98-107); CREATININE FOR GFR 0.77 MG/DL (0.55-1.30); GLOMERULAR FILTRATION RATE > 60.0 (>39); GLUCOSE, FASTING 102 MG/DL (74-106); POTASSIUM SERUM 4.6 MMOL/L (3.5-5.1); SODIUM LEVEL 133 MMOL/L (136-145); TOTAL PROTEIN 5.4 G/DL (5.7-8.2)
[2024-01-10 07:44] LABS: IRON (FE) 51 UG/DL (50-170); TOTAL IRON BINDING CAPACITY 283 UG/DL (250-425)
[2024-01-10 07:45] LABS: FERRITIN 124.7 NG/ML (7.3-270.7)
[2024-01-10 07:46] LABS: FOLATE 12.52 NG/ML (>5.4); VITAMIN B12 LEVEL 955 PG/ML (211-911)
[2024-01-10] MEDS: IPRATROPIUM 0.5MG/ALBUTEROL 2.5MG INH SOL UD 3ML (DUONEB) INH PRN (08:44)
[2024-01-10] MEDS: KETOROLAC 30 MG/ML 1ML VIAL IV ONE (10:57)
[2024-01-11 04:00] VITALS: BP 112/64; TEMP 98.1; O2SAT 94
[2024-01-11 06:09] LABS: HEMATOCRIT 25.2 % (36.0-47.0); HEMOGLOBIN 8.1 g/dl (12.0-15.5); MEAN CORPUSCULAR HEMOGLOBIN 30.7 pg (27.0-33.0); MEAN CORPUSCULAR HGB CONC 32.1 g/dl (32.0-36.5); MEAN CORPUSCULAR VOLUME 95.5 fl (80.0-96.0); PLATELET COUNT, AUTOMATED 219 10^3/uL (150-450); RED BLOOD COUNT 2.64 10^6/uL (4.00-5.40); WHITE BLOOD COUNT 12.4 10^3/uL (4.0-10.0)
[2024-01-11 06:36] LABS: ALBUMIN 2.3 G/DL (3.2-5.2); ALKALINE PHOSPHATASE 112 U/L (35-104); ALT/SGPT 14 U/L (7.0-40); AST/SGOT 22 U/L (<34); BILIRUBIN,TOTAL 1.2 MG/DL (0.3-1.2); BLOOD UREA NITROGEN 13 MG/DL (9-23); CALCIUM LEVEL 8.3 MG/DL (8.3-10.6); CARBON DIOXIDE LEVEL 31 MMOL/L (20-31); CHLORIDE LEVEL 94 MMOL/L (98-107); CREATININE FOR GFR 0.76 MG/DL (0.55-1.30); GLOMERULAR FILTRATION RATE > 60.0 (>39); GLUCOSE, FASTING 123 MG/DL (74-106); POTASSIUM SERUM 4.2 MMOL/L (3.5-5.1); SODIUM LEVEL 130 MMOL/L (136-145); TOTAL PROTEIN 5.6 G/DL (5.7-8.2)
[2024-01-11 12:24] VITALS: BP 128/84; TEMP 98.1; O2SAT 98
[2024-01-11] MEDS: BISACODYL 10MG SUPP PR PRN (15:32)
[2024-01-11 21:22] VITALS: BP 140/74; TEMP 99; O2SAT 99
[2024-01-12 04:07] VITALS: BP 135/73; TEMP 98.9; O2SAT 98
[2024-01-12 06:26] LABS: HEMATOCRIT 27.4 % (36.0-47.0); HEMOGLOBIN 8.5 g/dl (12.0-15.5); MEAN CORPUSCULAR HEMOGLOBIN 30.4 pg (27.0-33.0); MEAN CORPUSCULAR VOLUME 97.9 fl (80.0-96.0); PLATELET COUNT, AUTOMATED 228 10^3/uL (150-450)
[2024-01-12 06:56] LABS: ALBUMIN 2.4 G/DL (3.2-5.2); ALKALINE PHOSPHATASE 121 U/L (35-104); ALT/SGPT 14 U/L (7.0-40); AST/SGOT 20 U/L (<34); BILIRUBIN,TOTAL 1.2 MG/DL (0.3-1.2); BLOOD UREA NITROGEN 13 MG/DL (9-23); CARBON DIOXIDE LEVEL 34 MMOL/L (20-31); CHLORIDE LEVEL 94 MMOL/L (98-107); CREATININE FOR GFR 0.79 MG/DL (0.55-1.30); GLOMERULAR FILTRATION RATE > 60.0 (>39); GLUCOSE, FASTING 119 MG/DL (74-106); POTASSIUM SERUM 4.7 MMOL/L (3.5-5.1); SODIUM LEVEL 131 MMOL/L (136-145); TOTAL PROTEIN 5.9 G/DL (5.7-8.2)
[2024-01-12 12:00] VITALS: BP 118/67; TEMP 98.6; O2SAT 93
[2024-01-12] MEDS: SODIUM CHLORIDE NASAL 0.65% SPRAY BTL (OCEAN) PRN (12:37)
[2024-01-12] MEDS: DOCUSATE SODIUM 100MG CAPSULE PO SCH (14:29)
[2024-01-12] MEDS: LACTULOSE 20GM/30ML SYRUP UDC PO SCH (14:29)
[2024-01-12 20:00] VITALS: BP 114/65; TEMP 98.6; O2SAT 91
[2024-01-12] MEDS: SENNA 8.6 MG TAB (SENOKOT) PO SCH (21:54)
[2024-01-13 04:40] VITALS: BP 110/64; TEMP 97.9; O2SAT 98
[2024-01-13 06:07] LABS: HEMATOCRIT 26.4 % (36.0-47.0); HEMOGLOBIN 8.2 g/dl (12.0-15.5); MEAN CORPUSCULAR HEMOGLOBIN 30.7 pg (27.0-33.0); MEAN CORPUSCULAR HGB CONC 31.1 g/dl (32.0-36.5); MEAN CORPUSCULAR VOLUME 98.9 fl (80.0-96.0); PLATELET COUNT, AUTOMATED 219 10^3/uL (150-450); RED BLOOD COUNT 2.67 10^6/uL (4.00-5.40); WHITE BLOOD COUNT 10.8 10^3/uL (4.0-10.0)
[2024-01-13 06:40] LABS: ALBUMIN 2.4 G/DL (3.2-5.2); ALKALINE PHOSPHATASE 127 U/L (35-104); ALT/SGPT 13 U/L (7.0-40); AST/SGOT 21 U/L (<34); BILIRUBIN,TOTAL 1.2 MG/DL (0.3-1.2); BLOOD UREA NITROGEN 12 MG/DL (9-23); CALCIUM LEVEL 8.9 MG/DL (8.3-10.6); CARBON DIOXIDE LEVEL 33 MMOL/L (20-31); CHLORIDE LEVEL 94 MMOL/L (98-107); CREATININE FOR GFR 0.67 MG/DL (0.55-1.30); GLOMERULAR FILTRATION RATE > 60.0 (>39); GLUCOSE, FASTING 109 MG/DL (74-106); POTASSIUM SERUM 4.4 MMOL/L (3.5-5.1); SODIUM LEVEL 132 MMOL/L (136-145); TOTAL PROTEIN 5.7 G/DL (5.7-8.2)
[2024-01-13 10:48] VITALS: O2SAT 92
[2024-01-13 12:00] VITALS: BP 120/64; TEMP 97.9; O2SAT 92
[2024-01-13 19:41] VITALS: BP 118/64; TEMP 97.9; O2SAT 95
[2024-01-13 21:19] VITALS: BP 118/64; TEMP 97.9; O2SAT 95
[2024-01-14] VITALS (8 sets, daily range): BP systolic 108–134; BP diastolic 66–74; TEMP 97.5–98.7; O2SAT 88–98
[2024-01-14 05:52] LABS: HEMATOCRIT 25.1 % (36.0-47.0); HEMOGLOBIN 7.8 g/dl (12.0-15.5); MEAN CORPUSCULAR HEMOGLOBIN 30.4 pg (27.0-33.0); MEAN CORPUSCULAR HGB CONC 31.1 g/dl (32.0-36.5); MEAN CORPUSCULAR VOLUME 97.7 fl (80.0-96.0); PLATELET COUNT, AUTOMATED 210 10^3/uL (150-450); RED BLOOD COUNT 2.57 10^6/uL (4.00-5.40); WHITE BLOOD COUNT 11.4 10^3/uL (4.0-10.0)
[2024-01-14 06:33] LABS: ALBUMIN 2.5 G/DL (3.2-5.2); ALKALINE PHOSPHATASE 133 U/L (35-104); ALT/SGPT 15 U/L (7.0-40); AST/SGOT 18 U/L (<34); BILIRUBIN,TOTAL 1.3 MG/DL (0.3-1.2); BLOOD UREA NITROGEN 15 MG/DL (9-23); CALCIUM LEVEL 8.5 MG/DL (8.3-10.6); CARBON DIOXIDE LEVEL 32 MMOL/L (20-31); CHLORIDE LEVEL 97 MMOL/L (98-107); CREATININE FOR GFR 0.68 MG/DL (0.55-1.30); GLOMERULAR FILTRATION RATE > 60.0 (>39); GLUCOSE, FASTING 122 MG/DL (74-106); POTASSIUM SERUM 4.7 MMOL/L (3.5-5.1); SODIUM LEVEL 133 MMOL/L (136-145); TOTAL PROTEIN 5.6 G/DL (5.7-8.2)
[2024-01-14] MEDS: cefTRIAXone SOD 1 GM in DEXTROSE 5% (D5W) ADV/MINI-BAG 50 ML IV SCH (18:30)
[2024-01-14] MEDS: MIRTAZAPINE 7.5MG PER 1/2 TABLET PO SCH (20:59)
[2024-01-15] VITALS (8 sets, daily range): BP systolic 100–134; BP diastolic 62–76; TEMP 97.9–98.1; O2SAT 87–100
[2024-01-15 06:10] LABS: BASO % 0.5 % (0.0-1.0); EOS # 0.2 10^3/uL (0.0-0.5); LYMPH # 1.1 10^3/uL (1.5-5.0); LYMPH % 13.4 % (24.0-44.0); MEAN CORPUSCULAR HEMOGLOBIN 30.5 pg (27.0-33.0); MEAN CORPUSCULAR HGB CONC 30.8 g/dl (32.0-36.5); MEAN CORPUSCULAR VOLUME 99.2 fl (80.0-96.0); MONO # 1.2 10^3/uL (0.0-0.8); MONO % 14.1 % (2.0-8.0); NEUTROPHILS # 5.7 10^3/uL (1.5-8.5); NEUTROPHILS % 69.4 % (36.0-66.0); PLATELET COUNT, AUTOMATED 207 10^3/uL (150-450); RED BLOOD COUNT 2.62 10^6/uL (4.00-5.40); WHITE BLOOD COUNT 8.2 10^3/uL (4.0-10.0)
[2024-01-15 06:39] LABS: BLOOD UREA NITROGEN 15 MG/DL (9-23); CALCIUM LEVEL 8.6 MG/DL (8.3-10.6); CARBON DIOXIDE LEVEL 32 MMOL/L (20-31); CHLORIDE LEVEL 98 MMOL/L (98-107); CREATININE FOR GFR 0.73 MG/DL (0.55-1.30); GLOMERULAR FILTRATION RATE > 60.0 (>39); GLUCOSE, FASTING 105 MG/DL (74-106); POTASSIUM SERUM 4.4 MMOL/L (3.5-5.1); SODIUM LEVEL 135 MMOL/L (136-145)
[2024-01-15] MEDS: KETOROLAC 30 MG/ML 1ML VIAL IV ONE (10:00)
[2024-01-15] MEDS: HEPARIN SOD (PORCINE) 5000UNITS/ML 1ML VIAL/SYRINGE SQ SCH (21:13)
[2024-01-16] VITALS: BP 114/64; TEMP 98.2; O2SAT 98
[2024-01-16 03:48] VITALS: BP 115/64; TEMP 98.1; O2SAT 95
[2024-01-16 06:40] LABS: BASO # 0.1 10^3/uL (0.0-0.2); BASO % 0.5 % (0.0-1.0); EOS # 0.2 10^3/uL (0.0-0.5); EOS % 2.2 % (0.0-3.0); HEMATOCRIT 25.9 % (36.0-47.0); HEMOGLOBIN 7.8 g/dl (12.0-15.5); LYMPH % 9.9 % (24.0-44.0); MEAN CORPUSCULAR HEMOGLOBIN 29.8 pg (27.0-33.0); MEAN CORPUSCULAR HGB CONC 30.1 g/dl (32.0-36.5); MEAN CORPUSCULAR VOLUME 98.9 fl (80.0-96.0); MONO # 1.2 10^3/uL (0.0-0.8); MONO % 11.8 % (2.0-8.0); NEUTROPHILS # 7.8 10^3/uL (1.5-8.5); NEUTROPHILS % 74.8 % (36.0-66.0); PLATELET COUNT, AUTOMATED 231 10^3/uL (150-450); RED BLOOD COUNT 2.62 10^6/uL (4.00-5.40); WHITE BLOOD COUNT 10.4 10^3/uL (4.0-10.0)
[2024-01-16 07:01] LABS: BLOOD UREA NITROGEN 18 MG/DL (9-23); CALCIUM LEVEL 8.5 MG/DL (8.3-10.6); CARBON DIOXIDE LEVEL 30 MMOL/L (20-31); CHLORIDE LEVEL 98 MMOL/L (98-107); CREATININE FOR GFR 0.73 MG/DL (0.55-1.30); GLOMERULAR FILTRATION RATE > 60.0 (>39); GLUCOSE, FASTING 128 MG/DL (74-106); POTASSIUM SERUM 3.8 MMOL/L (3.5-5.1); SODIUM LEVEL 131 MMOL/L (136-145)
[2024-01-16 07:04] LABS: THYROID STIMULATING HORMONE 18.363 uIU/ML (0.55-4.78)
[2024-01-16 08:00] VITALS: BP 116/66; TEMP 97.7; O2SAT 99
[2024-01-16 12:00] VITALS: BP 116/67; TEMP 97.9; O2SAT 94
[2024-01-16] MEDS: POLYETHYLENE GLYCOL (MIRALAX) 238GM BOTTLE PO ONE (12:58)
[2024-01-16 16:00] VITALS: BP 112/65; TEMP 97.9; O2SAT 97
[2024-01-16] MEDS: KETOROLAC 30 MG/ML 1ML VIAL IV SCH (16:15)
[2024-01-16 19:50] VITALS: BP 114/60; TEMP 98.2; O2SAT 95
[2024-01-17] VITALS (15 sets, daily range): BP systolic 97–129; BP diastolic 57–86; TEMP 97.6–98.2; O2SAT 92–99
[2024-01-17] MEDS: POLYETHYLENE GLYCOL (MIRALAX) 238GM BOTTLE PO ONE (05:17)
[2024-01-17 08:30] LABS: BASO % 0.6 % (0.0-1.0); EOS # 0.2 10^3/uL (0.0-0.5); EOS % 3.1 % (0.0-3.0); HEMATOCRIT 21.9 % (36.0-47.0); LYMPH # 0.7 10^3/uL (1.5-5.0); LYMPH % 11.5 % (24.0-44.0); MEAN CORPUSCULAR HEMOGLOBIN 30.3 pg (27.0-33.0); MEAN CORPUSCULAR HGB CONC 30.6 g/dl (32.0-36.5); MEAN CORPUSCULAR VOLUME 99.1 fl (80.0-96.0); MONO # 0.9 10^3/uL (0.0-0.8); MONO % 14.6 % (2.0-8.0); NEUTROPHILS # 4.4 10^3/uL (1.5-8.5); NEUTROPHILS % 69.7 % (36.0-66.0); PLATELET COUNT, AUTOMATED 158 10^3/uL (150-450); RED BLOOD COUNT 2.21 10^6/uL (4.00-5.40); WHITE BLOOD COUNT 6.4 10^3/uL (4.0-10.0)
[2024-01-17 08:32] LABS: HEMOGLOBIN 6.7 g/dl (12.0-15.5)
[2024-01-17 08:51] LABS: BLOOD UREA NITROGEN 18 MG/DL (9-23); CARBON DIOXIDE LEVEL 31 MMOL/L (20-31); CHLORIDE LEVEL 99 MMOL/L (98-107); CREATININE FOR GFR 0.78 MG/DL (0.55-1.30); GLOMERULAR FILTRATION RATE > 60.0 (>39); GLUCOSE, FASTING 94 MG/DL (74-106); POTASSIUM SERUM 4.2 MMOL/L (3.5-5.1); SODIUM LEVEL 134 MMOL/L (136-145)
[2024-01-17 16:16] LABS: PROCALCITONIN 0.09 ng/ml
[2024-01-18 04:02] VITALS: BP 136/74; TEMP 98.8; O2SAT 94
[2024-01-18 06:07] LABS: BASO % 0.4 % (0.0-1.0); EOS # 0.2 10^3/uL (0.0-0.5); EOS % 3.2 % (0.0-3.0); HEMATOCRIT 30.5 % (36.0-47.0); LYMPH # 0.7 10^3/uL (1.5-5.0); LYMPH % 9.7 % (24.0-44.0); MEAN CORPUSCULAR HEMOGLOBIN 30.3 pg (27.0-33.0); MEAN CORPUSCULAR HGB CONC 31.5 g/dl (32.0-36.5); MEAN CORPUSCULAR VOLUME 96.2 fl (80.0-96.0); NEUTROPHILS # 5.4 10^3/uL (1.5-8.5); NEUTROPHILS % 72.2 % (36.0-66.0); PLATELET COUNT, AUTOMATED 172 10^3/uL (150-450); RED BLOOD COUNT 3.17 10^6/uL (4.00-5.40); WHITE BLOOD COUNT 7.4 10^3/uL (4.0-10.0)
[2024-01-18 06:14] LABS: HEMOGLOBIN 9.6 g/dl (12.0-15.5)
[2024-01-18 06:31] LABS: BLOOD UREA NITROGEN 19 MG/DL (9-23); CALCIUM LEVEL 8.3 MG/DL (8.3-10.6); CARBON DIOXIDE LEVEL 31 MMOL/L (20-31); CHLORIDE LEVEL 101 MMOL/L (98-107); CREATININE FOR GFR 0.73 MG/DL (0.55-1.30); GLOMERULAR FILTRATION RATE > 60.0 (>39); GLUCOSE, FASTING 103 MG/DL (74-106); POTASSIUM SERUM 4.3 MMOL/L (3.5-5.1); SODIUM LEVEL 136 MMOL/L (136-145)
[2024-01-18 09:51] VITALS: O2SAT 93
[2024-01-18 12:00] VITALS: BP 116/59; TEMP 98.1; O2SAT 95
[2024-01-18] MEDS: oxyBUTYnin 5 MG TAB PO SCH (14:13)
[2024-01-18 17:32] VITALS: O2SAT 90
[2024-01-18 20:00] VITALS: BP 129/73; TEMP 98.1; O2SAT 95
[2024-01-18] MEDS: CEFDINIR 300 MG CAP (OMNICEF) PO SCH (20:46)
[2024-01-18 21:00] VITALS: O2SAT 94
[2024-01-19 04:00] VITALS: BP 138/73; TEMP 97.9; O2SAT 87
[2024-01-19 06:19] LABS: BASO % 0.5 % (0.0-1.0); EOS # 0.3 10^3/uL (0.0-0.5); EOS % 3.5 % (0.0-3.0); HEMATOCRIT 33.8 % (36.0-47.0); HEMOGLOBIN 10.3 g/dl (12.0-15.5); LYMPH # 0.9 10^3/uL (1.5-5.0); LYMPH % 12.1 % (24.0-44.0); MEAN CORPUSCULAR HEMOGLOBIN 29.9 pg (27.0-33.0); MEAN CORPUSCULAR HGB CONC 30.5 g/dl (32.0-36.5); NEUTROPHILS # 5.2 10^3/uL (1.5-8.5); NEUTROPHILS % 69.4 % (36.0-66.0); PLATELET COUNT, AUTOMATED 171 10^3/uL (150-450); RED BLOOD COUNT 3.45 10^6/uL (4.00-5.40); WHITE BLOOD COUNT 7.5 10^3/uL (4.0-10.0)
[2024-01-19 06:49] LABS: BLOOD UREA NITROGEN 14 MG/DL (9-23); CALCIUM LEVEL 8.7 MG/DL (8.3-10.6); CARBON DIOXIDE LEVEL 31 MMOL/L (20-31); CHLORIDE LEVEL 102 MMOL/L (98-107); CREATININE FOR GFR 0.71 MG/DL (0.55-1.30); GLOMERULAR FILTRATION RATE > 60.0 (>39); GLUCOSE, FASTING 108 MG/DL (74-106); POTASSIUM SERUM 4.3 MMOL/L (3.5-5.1); SODIUM LEVEL 138 MMOL/L (136-145)
[2024-01-19] MEDS: FUROSEMIDE 40MG/4ML VIAL IV ONE (08:36)
[2024-01-19] MEDS: MOM 30ML SUSPENSION UDC PO ONE (09:35)
[2024-01-19] MEDS: POLYETHYLENE GLYCOL (MIRALAX) 238GM BOTTLE PO ONE ×2 (11:31→18:12)
[2024-01-19 12:00] VITALS: BP 117/58; TEMP 98.1; O2SAT 94
[2024-01-19 20:00] VITALS: BP 134/66; TEMP 97.9; O2SAT 96
[2024-01-20] VITALS (10 sets, daily range): BP systolic 105–132; BP diastolic 50–76; TEMP 97.7–98.2; O2SAT 87–99
[2024-01-20 06:03] LABS: BASO # 0.1 10^3/uL (0.0-0.2); BASO % 0.8 % (0.0-1.0); EOS # 0.4 10^3/uL (0.0-0.5); EOS % 4.6 % (0.0-3.0); HEMOGLOBIN 9.6 g/dl (12.0-15.5); LYMPH # 1.1 10^3/uL (1.5-5.0); LYMPH % 13.8 % (24.0-44.0); MEAN CORPUSCULAR HEMOGLOBIN 30.1 pg (27.0-33.0); MEAN CORPUSCULAR VOLUME 100.3 fl (80.0-96.0); MONO # 1.6 10^3/uL (0.0-0.8); MONO % 20.9 % (2.0-8.0); NEUTROPHILS # 4.6 10^3/uL (1.5-8.5); NEUTROPHILS % 59.2 % (36.0-66.0); PLATELET COUNT, AUTOMATED 151 10^3/uL (150-450); RED BLOOD COUNT 3.19 10^6/uL (4.00-5.40); WHITE BLOOD COUNT 7.7 10^3/uL (4.0-10.0)
[2024-01-20] MEDS: POLYETHYLENE GLYCOL (MIRALAX) 238GM BOTTLE PO ONE (06:08)
[2024-01-20 06:37] LABS: BLOOD UREA NITROGEN 10 MG/DL (9-23); CALCIUM LEVEL 8.3 MG/DL (8.3-10.6); CARBON DIOXIDE LEVEL 34 MMOL/L (20-31); CHLORIDE LEVEL 101 MMOL/L (98-107); CREATININE FOR GFR 0.72 MG/DL (0.55-1.30); GLOMERULAR FILTRATION RATE > 60.0 (>39); GLUCOSE, FASTING 94 MG/DL (74-106); POTASSIUM SERUM 3.7 MMOL/L (3.5-5.1); SODIUM LEVEL 139 MMOL/L (136-145)
[2024-01-20] MEDS: FUROSEMIDE 40MG/4ML VIAL IV ONE (10:49)
[2024-01-21 04:00] VITALS: BP 118/69; TEMP 98.2; O2SAT 95
[2024-01-21 05:59] LABS: BASO % 0.5 % (0.0-1.0); EOS # 0.3 10^3/uL (0.0-0.5); EOS % 4.4 % (0.0-3.0); HEMATOCRIT 33.4 % (36.0-47.0); LYMPH # 0.9 10^3/uL (1.5-5.0); LYMPH % 16.5 % (24.0-44.0); MEAN CORPUSCULAR HGB CONC 29.9 g/dl (32.0-36.5); MEAN CORPUSCULAR VOLUME 103.4 fl (80.0-96.0); MONO # 0.8 10^3/uL (0.0-0.8); MONO % 13.5 % (2.0-8.0); NEUTROPHILS # 3.6 10^3/uL (1.5-8.5); NEUTROPHILS % 64.4 % (36.0-66.0); PLATELET COUNT, AUTOMATED 151 10^3/uL (150-450); RED BLOOD COUNT 3.23 10^6/uL (4.00-5.40); WHITE BLOOD COUNT 5.6 10^3/uL (4.0-10.0)
[2024-01-21 06:00] VITALS: O2SAT 95
[2024-01-21 06:26] LABS: BLOOD UREA NITROGEN 15 MG/DL (9-23); CALCIUM LEVEL 8.4 MG/DL (8.3-10.6); CARBON DIOXIDE LEVEL 32 MMOL/L (20-31); CHLORIDE LEVEL 100 MMOL/L (98-107); CREATININE FOR GFR 0.66 MG/DL (0.55-1.30); GLOMERULAR FILTRATION RATE > 60.0 (>39); GLUCOSE, FASTING 108 MG/DL (74-106); POTASSIUM SERUM 3.4 MMOL/L (3.5-5.1); SODIUM LEVEL 140 MMOL/L (136-145)
[2024-01-21 08:00] VITALS: BP 114/68; TEMP 97.9; O2SAT 93
[2024-01-21] MEDS: POTASSIUM CHLORIDE 10MEQ SR TABLET PO ONE (10:51)
[2024-01-21] MEDS: APIXABAN 2.5 MG TAB (ELIQUIS) PO SCH (10:51)
[2024-01-22 03:13] VITALS: BP 116/69; TEMP 98.2; O2SAT 94
[2024-01-22 04:31] VITALS: O2SAT 93
[2024-01-22 21:15] VITALS: O2SAT 94
[2024-01-22 21:16] VITALS: O2SAT 93
[2024-01-23 01:07] VITALS: O2SAT 87
[2024-01-23 01:08] VITALS: O2SAT 93
[2024-01-23 06:16] VITALS: BP 146/78; TEMP 98.1; O2SAT 92
[2024-01-23 08:03] VITALS: O2SAT 94
[2024-01-23 09:42] VITALS: O2SAT 96
[2024-01-23] MEDS: LIDOCAINE 5% (LIDODERM) PATCH TD SCH (19:00)
[2024-01-24 03:10] VITALS: BP 140/76; TEMP 97.9; O2SAT 90
[2024-01-24 07:56] VITALS: O2SAT 96
[2024-01-24] MEDS: ONDANSETRON 4MG TAB PO PRN (11:00)
[2024-01-24 12:00] VITALS: BP 127/63; TEMP 97.9; O2SAT 97
[2024-01-24 13:53] VITALS: O2SAT 93
[2024-01-24 15:48] VITALS: O2SAT 93
[2024-01-25 04:00] VITALS: BP 148/79; TEMP 97.5; O2SAT 97
[2024-01-26 04:00] VITALS: BP 132/84; TEMP 98.1; O2SAT 98
[2024-01-27 04:00] VITALS: BP 132/77; TEMP 98.1; O2SAT 97
[2024-01-27 08:49] VITALS: O2SAT 91
[2024-01-27 19:00] VITALS: O2SAT 92
[2024-01-28 04:25] VITALS: O2SAT 97
[2024-01-28 04:59] VITALS: BP 140/79; TEMP 97.9; O2SAT 96
[2024-01-28] MEDS: FUROSEMIDE 40MG/4ML VIAL IV ONE (11:40)
[2024-01-28 19:00] VITALS: O2SAT 95
[2024-01-29 04:00] VITALS: BP 127/74; TEMP 97.9; O2SAT 93
[2024-01-29 05:01] VITALS: O2SAT 94
[2024-01-29 20:04] VITALS: BP 127/74; TEMP 98.2; O2SAT 94
[2024-01-30 03:13] VITALS: BP 138/78; TEMP 97.9; O2SAT 98
[2024-01-30 06:36] VITALS: O2SAT 93
[2024-01-30 07:30] VITALS: O2SAT 80
[2024-01-30 07:31] VITALS: O2SAT 93
[2024-01-30 10:52] LABS: BASO % 0.7 % (0.0-1.0); EOS # 0.2 10^3/uL (0.0-0.5); EOS % 2.7 % (0.0-3.0); HEMOGLOBIN 10.3 g/dl (12.0-15.5); LYMPH # 0.6 10^3/uL (1.5-5.0); LYMPH % 10.2 % (24.0-44.0); MEAN CORPUSCULAR HEMOGLOBIN 30.3 pg (27.0-33.0); MEAN CORPUSCULAR HGB CONC 30.3 g/dl (32.0-36.5); MONO # 0.7 10^3/uL (0.0-0.8); NEUTROPHILS # 4.2 10^3/uL (1.5-8.5); PLATELET COUNT, AUTOMATED 136 10^3/uL (150-450); WHITE BLOOD COUNT 5.6 10^3/uL (4.0-10.0)
[2024-01-30] MEDS: SODIUM CHLORIDE HYPERTONIC 3% 4ML NEB SOL INH SCH (11:10)
[2024-01-30 11:20] LABS: ALBUMIN 2.4 G/DL (3.2-5.2); ALKALINE PHOSPHATASE 131 U/L (35-104); ALT/SGPT < 9 U/L (7.0-40); AST/SGOT 20 U/L (<34); BILIRUBIN,TOTAL 0.6 MG/DL (0.3-1.2); BLOOD UREA NITROGEN 17 MG/DL (9-23); CALCIUM LEVEL 8.8 MG/DL (8.3-10.6); CARBON DIOXIDE LEVEL 34 MMOL/L (20-31); CHLORIDE LEVEL 104 MMOL/L (98-107); CREATININE FOR GFR 0.59 MG/DL (0.55-1.30); GLOMERULAR FILTRATION RATE > 60.0 (>39); GLUCOSE, FASTING 139 MG/DL (74-106); POTASSIUM SERUM 3.9 MMOL/L (3.5-5.1); SODIUM LEVEL 143 MMOL/L (136-145); TOTAL PROTEIN 5.9 G/DL (5.7-8.2)
[2024-01-30 11:28] LABS: PROCALCITONIN 0.08 ng/ml
[2024-01-30 12:00] VITALS: BP 126/70; TEMP 97.5; O2SAT 96
[2024-01-30] MEDS: LR 1,000 ML IV ONE (14:53)
[2024-01-30] MEDS: ALBUTEROL SULFATE 2.5MG/0.5ML INH NEB SOLN NEB PRN (15:45)
[2024-01-30] MEDS: FUROSEMIDE 40MG/4ML VIAL IV ONE (18:33)
[2024-01-30] MEDS: LevoFLOXacin 750 MG TABLET PO SCH (20:17)
[2024-01-31 03:05] VITALS: O2SAT 96
[2024-01-31 03:28] VITALS: BP 109/68; TEMP 97.7; O2SAT 95
[2024-01-31 21:46] VITALS: BP 121/70; TEMP 97.9; O2SAT 94
[2024-01-31 22:31] VITALS: O2SAT 96
[2024-02-01 04:59] VITALS: BP 111/62; TEMP 98.1; O2SAT 94
[2024-02-01 21:00] VITALS: O2SAT 97
[2024-02-02 04:00] VITALS: BP 122/80; TEMP 98.1; O2SAT 96
[2024-02-03 03:01] VITALS: O2SAT 97
[2024-02-03 04:00] VITALS: BP 133/79; TEMP 97.9; O2SAT 97
[2024-02-03] MEDS ORDERED: NS (Normal Saline) 0.9% 1,000 ML IV ONE (05:10)
[2024-02-03 06:01] LABS: BASO % 0.4 % (0.0-1.0); EOS # 0.1 10^3/uL (0.0-0.5); HEMATOCRIT 36.7 % (36.0-47.0); HEMOGLOBIN 10.8 g/dl (12.0-15.5); LYMPH # 0.6 10^3/uL (1.5-5.0); LYMPH % 8.4 % (24.0-44.0); MEAN CORPUSCULAR HEMOGLOBIN 29.8 pg (27.0-33.0); MEAN CORPUSCULAR HGB CONC 29.4 g/dl (32.0-36.5); MEAN CORPUSCULAR VOLUME 101.4 fl (80.0-96.0); MONO # 0.9 10^3/uL (0.0-0.8); MONO % 12.1 % (2.0-8.0); NEUTROPHILS # 5.5 10^3/uL (1.5-8.5); NEUTROPHILS % 76.7 % (36.0-66.0); PLATELET COUNT, AUTOMATED 141 10^3/uL (150-450); RED BLOOD COUNT 3.62 10^6/uL (4.00-5.40); WHITE BLOOD COUNT 7.1 10^3/uL (4.0-10.0)
[2024-02-03 06:11] LABS: ERYTHROCYTE SEDIMENTATION RATE 40 mm/hr (0-30)
[2024-02-03 06:21] LABS: ALBUMIN 2.6 G/DL (3.2-5.2); ALKALINE PHOSPHATASE 135 U/L (35-104); ALT/SGPT 9 U/L (7.0-40); AST/SGOT 22 U/L (<34); BILIRUBIN,TOTAL 0.7 MG/DL (0.3-1.2); BLOOD UREA NITROGEN 16 MG/DL (9-23); C REACTIVE PROTEIN QUANTITATIV 1.17 MG/DL (<1.0); CALCIUM LEVEL 8.9 MG/DL (8.3-10.6); CARBON DIOXIDE LEVEL 36 MMOL/L (20-31); CHLORIDE LEVEL 95 MMOL/L (98-107); CREATININE FOR GFR 0.58 MG/DL (0.55-1.30); GLOMERULAR FILTRATION RATE > 60.0 (>39); GLUCOSE, FASTING 145 MG/DL (74-106); MAGNESIUM LEVEL 2.1 MG/DL (1.8-2.4); POTASSIUM SERUM 4.4 MMOL/L (3.5-5.1); SODIUM LEVEL 137 MMOL/L (136-145); TOTAL PROTEIN 6.3 G/DL (5.7-8.2)
[2024-02-03 06:26] LABS: PROCALCITONIN 0.09 ng/ml
[2024-02-03] MEDS: NS (Normal Saline) 0.9% 1,000 ML IV ONE (06:26)
[2024-02-03 11:51] LABS: KETONE, URINE AUTO RFX TRACE mg/dL (NEGATIVE); MUCUS, URINE RFX LARGE (NEGATIVE); NITRITE, URINE AUTO RFX NEGATIVE (NEGATIVE); RBC, URINE AUTO RFX TNTC /HPF (0-3); SQUAM EPITHELIAL CELL UR AURFX 7 /HPF (0-6); YEAST LIKE CELL URINE AUTO RFX LARGE
[2024-02-03 12:11] VITALS: BP 125/76; TEMP 97.2; O2SAT 90
[2024-02-03 12:19] LABS: LEUKOCYTE ESTERASE UR AUTO RFX TRACE (NEGATIVE); WBC, URINE AUTO RFX 179 /HPF (0-3)
[2024-02-03 17:13] VITALS: BP 145/91; TEMP 98.4; O2SAT 93
[2024-02-03 18:41] VITALS: O2SAT 98
[2024-02-03 20:30] VITALS: BP 150/91; TEMP 97.9; O2SAT 97
[2024-02-04] VITALS (8 sets, daily range): BP systolic 125–151; BP diastolic 44–87; TEMP 97.9–98.2; O2SAT 97–100
[2024-02-04 02:41] LABS: VENOUS BASE EXCESS 6.4 (-2.0-2.0); VENOUS HCO3 33.4 MMOL/L (23.0-27.0); VENOUS O2 SATURATION 98.6 % (60.0-80.0); VENOUS PARTIAL PRESSURE CO2 59.6 mmHg (38.0-50.0); VENOUS PARTIAL PRESSURE O2 139.5 mmHg (30.0-50.0); VENOUS PH 7.366 UNITS (7.330-7.430); VENOUS STANDARD HCO3 30.3 MMOL/L; VENOUS TOTAL CO2 35.2 MMOL/L (24.0-28.0)
[2024-02-04] MEDS: FUROSEMIDE 20MG/2ML VIAL IV ONE (03:07)
[2024-02-04 03:09] LABS: ALBUMIN 2.7 G/DL (3.2-5.2); ALKALINE PHOSPHATASE 139 U/L (35-104); ALT/SGPT 9 U/L (7.0-40); AST/SGOT 22 U/L (<34); BASO % 0.3 % (0.0-1.0); BILIRUBIN,TOTAL 0.8 MG/DL (0.3-1.2); BLOOD UREA NITROGEN 18 MG/DL (9-23); CALCIUM LEVEL 8.9 MG/DL (8.3-10.6); CARBON DIOXIDE LEVEL 34 MMOL/L (20-31); CHLORIDE LEVEL 97 MMOL/L (98-107); CREATININE FOR GFR 0.57 MG/DL (0.55-1.30); EOS # 0.1 10^3/uL (0.0-0.5); EOS % 1.2 % (0.0-3.0); GLOMERULAR FILTRATION RATE > 60.0 (>39); GLUCOSE, FASTING 135 MG/DL (74-106); HEMATOCRIT 36.5 % (36.0-47.0); LYMPH # 0.6 10^3/uL (1.5-5.0); LYMPH % 7.2 % (24.0-44.0); MEAN CORPUSCULAR HEMOGLOBIN 29.8 pg (27.0-33.0); MEAN CORPUSCULAR HGB CONC 30.1 g/dl (32.0-36.5); MEAN CORPUSCULAR VOLUME 98.9 fl (80.0-96.0); MONO # 0.8 10^3/uL (0.0-0.8); NEUTROPHILS # 6.2 10^3/uL (1.5-8.5); NEUTROPHILS % 80.9 % (36.0-66.0); PLATELET COUNT, AUTOMATED 152 10^3/uL (150-450); POTASSIUM SERUM 4.5 MMOL/L (3.5-5.1); RED BLOOD COUNT 3.69 10^6/uL (4.00-5.40); SODIUM LEVEL 136 MMOL/L (136-145); TOTAL PROTEIN 6.5 G/DL (5.7-8.2); WHITE BLOOD COUNT 7.6 10^3/uL (4.0-10.0)
[2024-02-04] MEDS ORDERED: ALPRAZolam 0.25 MG TAB PO PRN (03:10)
[2024-02-04 04:28] LABS: PROCALCITONIN 0.09 ng/ml
[2024-02-04] MEDS: FUROSEMIDE 100MG/10ML VIAL IV ONE (09:30)
[2024-02-04] MEDS: ALBUTEROL SULFATE 2.5MG/0.5ML INH NEB SOLN NEB SCH (13:39)
[2024-02-04] MEDS: SODIUM CHLORIDE HYPERTONIC 3% 4ML NEB SOL INH SCH (13:39)
[2024-02-04 19:05] LABS: VENOUS BASE EXCESS 13.9 (-2.0-2.0); VENOUS HCO3 41.9 MMOL/L (23.0-27.0); VENOUS O2 SATURATION 98.4 % (60.0-80.0); VENOUS PARTIAL PRESSURE CO2 70.4 mmHg (38.0-50.0); VENOUS PARTIAL PRESSURE O2 110.8 mmHg (30.0-50.0); VENOUS PH 7.392 UNITS (7.330-7.430); VENOUS STANDARD HCO3 37.8 MMOL/L
[2024-02-04 19:35] LABS: ALBUMIN 2.9 G/DL (3.2-5.2); ALKALINE PHOSPHATASE 140 U/L (35-104); ALT/SGPT 9 U/L (7.0-40); AST/SGOT 22 U/L (<34); BILIRUBIN,TOTAL 0.9 MG/DL (0.3-1.2); BLOOD UREA NITROGEN 15 MG/DL (9-23); CALCIUM LEVEL 8.8 MG/DL (8.3-10.6); CARBON DIOXIDE LEVEL 39 MMOL/L (20-31); CHLORIDE LEVEL 95 MMOL/L (98-107); CREATININE FOR GFR 0.62 MG/DL (0.55-1.30); FREE T4 1.37 NG/DL (0.89-1.76); GLOMERULAR FILTRATION RATE > 60.0 (>39); GLUCOSE, FASTING 108 MG/DL (74-106); PHOSPHORUS LEVEL 3.9 MG/DL (2.4-5.1); POTASSIUM SERUM 3.5 MMOL/L (3.5-5.1); SODIUM LEVEL 138 MMOL/L (136-145); THYROID STIMULATING HORMONE 5.934 uIU/ML (0.55-4.78); TOTAL PROTEIN 6.5 G/DL (5.7-8.2)
[2024-02-04] MEDS: MAG SULF 1GM/100ML (MAG RUN) 1 GM in IV 1 EA IV ONE (21:34)
[2024-02-04] MEDS: FUROSEMIDE 40MG/4ML VIAL IV ONE (21:34)
[2024-02-04] MEDS: KCL 10MEQ/100ML SWI (KRUN) 10 MEQ in IV 1 EA IV SCH (22:44)
[2024-02-05] VITALS (34 sets, daily range): BP systolic 96–126; BP diastolic 54–80; TEMP 97.1–97.7; O2SAT 83–99
[2024-02-05 05:26] LABS: BASO % 0.4 % (0.0-1.0); EOS # 0.1 10^3/uL (0.0-0.5); EOS % 1.4 % (0.0-3.0); HEMATOCRIT 35.4 % (36.0-47.0); HEMOGLOBIN 10.9 g/dl (12.0-15.5); LYMPH # 0.7 10^3/uL (1.5-5.0); LYMPH % 8.7 % (24.0-44.0); MEAN CORPUSCULAR HEMOGLOBIN 30.1 pg (27.0-33.0); MEAN CORPUSCULAR HGB CONC 30.8 g/dl (32.0-36.5); MEAN CORPUSCULAR VOLUME 97.8 fl (80.0-96.0); MONO % 12.5 % (2.0-8.0); NEUTROPHILS # 5.9 10^3/uL (1.5-8.5); NEUTROPHILS % 76.6 % (36.0-66.0); PLATELET COUNT, AUTOMATED 150 10^3/uL (150-450); RED BLOOD COUNT 3.62 10^6/uL (4.00-5.40); WHITE BLOOD COUNT 7.7 10^3/uL (4.0-10.0)
[2024-02-05 05:50] LABS: BLOOD UREA NITROGEN 13 MG/DL (9-23); CALCIUM LEVEL 8.7 MG/DL (8.3-10.6); CARBON DIOXIDE LEVEL 39 MMOL/L (20-31); CHLORIDE LEVEL 94 MMOL/L (98-107); CREATININE FOR GFR 0.63 MG/DL (0.55-1.30); GLOMERULAR FILTRATION RATE > 60.0 (>39); GLUCOSE, FASTING 89 MG/DL (74-106); MAGNESIUM LEVEL 2.2 MG/DL (1.8-2.4); SODIUM LEVEL 138 MMOL/L (136-145)
[2024-02-05] MEDS: MAG SULF 1GM/100ML (MAG RUN) 1 GM in IV 1 EA IV ONE (10:07)
[2024-02-05] MEDS: FUROSEMIDE 100MG/10ML VIAL IV ONE (10:07)
[2024-02-05] MEDS: POTASSIUM CHLORIDE 10MEQ SR TABLET PO SCH (15:36)
[2024-02-05] MEDS ORDERED: FUROSEMIDE 100MG/10ML VIAL IV SCH (17:00)
[2024-02-05] MEDS ORDERED: SPIRONOLACTONE 25 MG TAB PO SCH (17:00)
[2024-02-05] MEDS ORDERED: FUROSEMIDE injection 100 MG, VIAL 2 BAG 13MM ADAPTER 1 EACH in D5W 100 ML IV SCH (17:15)
[2024-02-05] MEDS: ONDANSETRON 4MG 2ML VIAL IV PRN (17:51)
[2024-02-05] MEDS: MIDODRINE 5 MG TAB PO SCH (18:05)
[2024-02-05] MEDS: FUROSEMIDE injection 100 MG, VIAL 2 BAG 13MM ADAPTER 1 EACH in D5W 100 ML IV SCH (18:22)
[2024-02-06] VITALS (33 sets, daily range): BP systolic 110–160; BP diastolic 57–70; TEMP 97.4–98.7; O2SAT 92–100
[2024-02-06 05:52] LABS: BASO % 0.4 % (0.0-1.0); EOS # 0.1 10^3/uL (0.0-0.5); EOS % 1.8 % (0.0-3.0); HEMATOCRIT 37.1 % (36.0-47.0); HEMOGLOBIN 11.4 g/dl (12.0-15.5); LYMPH # 0.8 10^3/uL (1.5-5.0); LYMPH % 9.5 % (24.0-44.0); MEAN CORPUSCULAR HEMOGLOBIN 29.8 pg (27.0-33.0); MEAN CORPUSCULAR HGB CONC 30.7 g/dl (32.0-36.5); MEAN CORPUSCULAR VOLUME 97.1 fl (80.0-96.0); MONO # 1.2 10^3/uL (0.0-0.8); MONO % 15.6 % (2.0-8.0); NEUTROPHILS # 5.7 10^3/uL (1.5-8.5); NEUTROPHILS % 72.3 % (36.0-66.0); PLATELET COUNT, AUTOMATED 157 10^3/uL (150-450); RED BLOOD COUNT 3.82 10^6/uL (4.00-5.40); WHITE BLOOD COUNT 7.9 10^3/uL (4.0-10.0)
[2024-02-06 06:07] LABS: BLOOD UREA NITROGEN 13 MG/DL (9-23); CALCIUM LEVEL 8.3 MG/DL (8.3-10.6); CARBON DIOXIDE LEVEL > 40.0 MMOL/L (20-31); CHLORIDE LEVEL 90 MMOL/L (98-107); CREATININE FOR GFR 0.73 MG/DL (0.55-1.30); GLOMERULAR FILTRATION RATE > 60.0 (>39); GLUCOSE, FASTING 100 MG/DL (74-106); POTASSIUM SERUM 3.1 MMOL/L (3.5-5.1); SODIUM LEVEL 139 MMOL/L (136-145)
[2024-02-06] MEDS ORDERED: metOLazone 5 MG TAB PO ONE (08:20)
[2024-02-06] MEDS: MIDODRINE 5 MG TAB PO ONE (08:35)
[2024-02-06 08:38] LABS: C REACTIVE PROTEIN QUANTITATIV 2.96 MG/DL (<1.0)
[2024-02-06] MEDS: POTASSIUM CHLORIDE 10MEQ SR TABLET PO ONE (08:39)
[2024-02-06 08:41] LABS: ERYTHROCYTE SEDIMENTATION RATE 48 mm/hr (0-30)
[2024-02-06 08:46] LABS: PROCALCITONIN 0.12 ng/ml
[2024-02-06] MEDS: MIDODRINE 5 MG TAB PO SCH (12:00)
[2024-02-06] MEDS: POTASSIUM CHLORIDE 10MEQ SR TABLET PO SCH (17:24)
[2024-02-07] VITALS (25 sets, daily range): BP systolic 109–140; BP diastolic 62–80; TEMP 97.6–98.7; O2SAT 91–100
[2024-02-07 08:05] LABS: IONIZED CALCIUM 4.1 MG/DL (4.5-5.3)
[2024-02-07 08:56] LABS: BLOOD UREA NITROGEN 13 MG/DL (9-23); CALCIUM LEVEL 8.8 MG/DL (8.3-10.6); CARBON DIOXIDE LEVEL > 40.0 MMOL/L (20-31); CHLORIDE LEVEL 82 MMOL/L (98-107); GLOMERULAR FILTRATION RATE > 60.0 (>39); GLUCOSE, FASTING 154 MG/DL (74-106); MAGNESIUM LEVEL 1.7 MG/DL (1.8-2.4); POTASSIUM SERUM 2.6 MMOL/L (3.5-5.1); SODIUM LEVEL 137 MMOL/L (136-145)
[2024-02-07] MEDS: POTASSIUM CHLORIDE 10MEQ SR TABLET PO SCH (09:53)
[2024-02-07] MEDS: MAG SULF 1GM/100ML (MAG RUN) 1 GM in IV 1 EA IV ONE (11:16)
[2024-02-07] MEDS: CALCIUM GLUCONATE 1,000 MG in DEXTROSE 5% (D5W) MINI-BAG PLU 100 ML IV ONE ×2 (12:52→19:53)
[2024-02-07 13:29] LABS: ABG BASE EXCESS 19.8 (-2.0-2.0); ABG HCO3 46.7 MMOL/L (22.0-26.0); ABG O2 SATURATION 98.9 % (95.0-99.0); ABG PARTIAL PRESSURE O2 142.5 mmHg (75.0-100.0); ABG STANDARD HCO3 44.1 MMOL/L. (22.0-26.0); ABG TOTAL CO2 48.6 MMOL/L (23.0-31.0)
[2024-02-07 13:33] LABS: ABG PARTIAL PRESSURE CO2 64.1 mmHg (35.0-45.0)
[2024-02-07] MEDS: FUROSEMIDE injection 100 MG, VIAL 2 BAG 13MM ADAPTER 1 EACH in D5W 100 ML IV SCH (14:06)
[2024-02-07] MEDS: POTASSIUM CHLORIDE 10MEQ SR TABLET PO ONE (18:40)
[2024-02-07] MEDS: GABAPENTIN 100 MG CAP PO ONE (18:40)
[2024-02-07] MEDS: LACTULOSE 20GM/30ML SYRUP UDC PO ONE (18:42)
[2024-02-07] MEDS: KCL 10MEQ/100ML SWI (KRUN) 10 MEQ in IV 1 EA IV SCH (18:42)
[2024-02-07 18:43] LABS: IONIZED CALCIUM 4.1 MG/DL (4.5-5.3)
[2024-02-07 19:24] LABS: BLOOD UREA NITROGEN 15 MG/DL (9-23); CALCIUM LEVEL 9.3 MG/DL (8.3-10.6); CARBON DIOXIDE LEVEL > 40.0 MMOL/L (20-31); CHLORIDE LEVEL 84 MMOL/L (98-107); CREATININE FOR GFR 0.69 MG/DL (0.55-1.30); GLOMERULAR FILTRATION RATE > 60.0 (>39); GLUCOSE, FASTING 172 MG/DL (74-106); POTASSIUM SERUM 3.7 MMOL/L (3.5-5.1); SODIUM LEVEL 136 MMOL/L (136-145)
[2024-02-08] VITALS (20 sets, daily range): BP systolic 120–131; BP diastolic 70–80; TEMP 97–97.8; O2SAT 93–98
[2024-02-08 00:12] LABS: IONIZED CALCIUM 4.2 MG/DL (4.5-5.3)
[2024-02-08 00:43] LABS: MAGNESIUM LEVEL 1.8 MG/DL (1.8-2.4); POTASSIUM SERUM 3.5 MMOL/L (3.5-5.1)
[2024-02-08 05:22] LABS: IONIZED CALCIUM 4.1 MG/DL (4.5-5.3)
[2024-02-08 05:27] LABS: HEMATOCRIT 34.2 % (36.0-47.0); HEMOGLOBIN 10.5 g/dl (12.0-15.5); MEAN CORPUSCULAR HEMOGLOBIN 29.7 pg (27.0-33.0); MEAN CORPUSCULAR HGB CONC 30.7 g/dl (32.0-36.5); MEAN CORPUSCULAR VOLUME 96.6 fl (80.0-96.0); PLATELET COUNT, AUTOMATED 150 10^3/uL (150-450); RED BLOOD COUNT 3.54 10^6/uL (4.00-5.40); WHITE BLOOD COUNT 7.5 10^3/uL (4.0-10.0)
[2024-02-08 06:07] LABS: ALBUMIN 2.8 G/DL (3.2-5.2); ALKALINE PHOSPHATASE 119 U/L (35-104); ALT/SGPT 10 U/L (7.0-40); AST/SGOT 20 U/L (<34); BILIRUBIN,TOTAL 1.1 MG/DL (0.3-1.2); BLOOD UREA NITROGEN 12 MG/DL (9-23); CALCIUM LEVEL 9.1 MG/DL (8.3-10.6); CARBON DIOXIDE LEVEL > 40.0 MMOL/L (20-31); CHLORIDE LEVEL 84 MMOL/L (98-107); CREATININE FOR GFR 0.74 MG/DL (0.55-1.30); GLOMERULAR FILTRATION RATE > 60.0 (>39); GLUCOSE, FASTING 119 MG/DL (74-106); MAGNESIUM LEVEL 1.8 MG/DL (1.8-2.4); POTASSIUM SERUM 2.8 MMOL/L (3.5-5.1); SODIUM LEVEL 139 MMOL/L (136-145); TOTAL PROTEIN 6.3 G/DL (5.7-8.2)
[2024-02-08] MEDS: POTASSIUM CHLORIDE 10MEQ SR TABLET PO SCH (08:09)
[2024-02-08] MEDS: OYSTER SHELL CALCIUM 500 MG TAB PO SCH (08:10)
[2024-02-08] MEDS: CALCIUM/VITAMIN D 500 MG TAB PO SCH (08:10)
[2024-02-08] MEDS: MAGNESIUM OXIDE 400MG TAB (MAG-OX) PO SCH (08:10)
[2024-02-08] MEDS: LACTULOSE 20GM/30ML SYRUP UDC PO SCH (08:28)
[2024-02-08] MEDS: MAG SULF 1GM/100ML (MAG RUN) 1 GM in IV 1 EA IV ONE (08:40)
[2024-02-08] MEDS: POTASSIUM CHLORIDE 10% LIQ 20MEQ/15ML UDC PO ONE (08:41)
[2024-02-08] MEDS ORDERED: POTASSIUM CHLORIDE 10% LIQ 20MEQ/15ML UDC PO SCH (09:00)
[2024-02-08] MEDS: CALCIUM GLUCONATE 1,000 MG in DEXTROSE 5% (D5W) MINI-BAG PLU 100 ML IV ONE (10:04)
[2024-02-08] MEDS: CARVedilol 6.25 MG TAB PO SCH (10:56)
[2024-02-08] MEDS: DIGOXIN INJ 0.5 MG/2 ML AMP IV ONE (10:57)
[2024-02-09 05:04] VITALS: BP 143/79; TEMP 97.5; O2SAT 99
[2024-02-09 11:37] LABS: BLOOD UREA NITROGEN 13 MG/DL (9-23); CALCIUM LEVEL 9.4 MG/DL (8.3-10.6); CARBON DIOXIDE LEVEL > 40.0 MMOL/L (20-31); CHLORIDE LEVEL 80 MMOL/L (98-107); CREATININE FOR GFR 0.68 MG/DL (0.55-1.30); GLOMERULAR FILTRATION RATE > 60.0 (>39); GLUCOSE, FASTING 137 MG/DL (74-106); POTASSIUM SERUM 2.7 MMOL/L (3.5-5.1); SODIUM LEVEL 137 MMOL/L (136-145)
[2024-02-09] MEDS: MAG SULF 1GM/100ML (MAG RUN) 1 GM in IV 1 EA IV ONE (11:46)
[2024-02-09] MEDS: CALCIUM GLUCONATE 1,000 MG in DEXTROSE 5% (D5W) MINI-BAG PLU 100 ML IV ONE (13:05)
[2024-02-09] MEDS: POTASSIUM CHLORIDE 10MEQ SR TABLET PO SCH (13:06)
[2024-02-09 13:07] VITALS: BP 109/64; TEMP 97.5; O2SAT 95
[2024-02-09 17:54] VITALS: BP 123/75
[2024-02-09 20:00] VITALS: BP 123/75; TEMP 97.7; O2SAT 96
[2024-02-10 04:00] VITALS: BP 141/83; TEMP 97.3; O2SAT 98
[2024-02-10 12:00] VITALS: BP 130/81; TEMP 97.5; O2SAT 98
[2024-02-10] MEDS ORDERED: MAG SULF 1GM/100ML (MAG RUN) 1 GM in IV 1 EA IV ONE (13:20)
[2024-02-10 13:39] LABS: IONIZED CALCIUM 4.2 MG/DL (4.5-5.3)
[2024-02-10 13:46] LABS: BASO # 0.1 10^3/uL (0.0-0.2); BASO % 0.7 % (0.0-1.0); EOS # 0.2 10^3/uL (0.0-0.5); EOS % 2.1 % (0.0-3.0); HEMATOCRIT 35.7 % (36.0-47.0); HEMOGLOBIN 10.8 g/dl (12.0-15.5); LYMPH # 0.6 10^3/uL (1.5-5.0); LYMPH % 8.1 % (24.0-44.0); MEAN CORPUSCULAR HEMOGLOBIN 29.6 pg (27.0-33.0); MEAN CORPUSCULAR HGB CONC 30.3 g/dl (32.0-36.5); MEAN CORPUSCULAR VOLUME 97.8 fl (80.0-96.0); MONO % 13.6 % (2.0-8.0); NEUTROPHILS # 5.4 10^3/uL (1.5-8.5); NEUTROPHILS % 75.1 % (36.0-66.0); PLATELET COUNT, AUTOMATED 144 10^3/uL (150-450); RED BLOOD COUNT 3.65 10^6/uL (4.00-5.40); WHITE BLOOD COUNT 7.2 10^3/uL (4.0-10.0)
[2024-02-10] MEDS ORDERED: VARIBAR NECTAR 40% w/v 240ML SUSP BTL As Ordered ONE (13:58)
[2024-02-10] MEDS ORDERED: E-Z-PAQUE 96% w/w SUSP 176GM BTL As Ordered ONE (13:58)
[2024-02-10] MEDS ORDERED: VARIBAR PUDDING 40% w/v 230ML TUBE As Ordered ONE (13:58)
[2024-02-10] MEDS ORDERED: BARIUM SULFATE 700 MG TABLET (E-Z-DISK) As Ordered ONE (13:59)
[2024-02-10 14:31] LABS: BLOOD UREA NITROGEN 19 MG/DL (9-23); CALCIUM LEVEL 9.5 MG/DL (8.3-10.6); CARBON DIOXIDE LEVEL > 40.0 MMOL/L (20-31); CHLORIDE LEVEL 87 MMOL/L (98-107); CREATININE FOR GFR 0.63 MG/DL (0.55-1.30); GLOMERULAR FILTRATION RATE > 60.0 (>39); GLUCOSE, FASTING 140 MG/DL (74-106); MAGNESIUM LEVEL 2.2 MG/DL (1.8-2.4); POTASSIUM SERUM 3.6 MMOL/L (3.5-5.1); SODIUM LEVEL 137 MMOL/L (136-145)
[2024-02-10] MEDS: POTASSIUM CHLORIDE 10MEQ SR TABLET PO ONE (15:27)
[2024-02-10] MEDS: CALCIUM GLUCONATE 1,000 MG in DEXTROSE 5% (D5W) MINI-BAG PLU 100 ML IV ONE (15:27)
[2024-02-10] MEDS: metOLazone 2.5 MG TAB PO ONE (15:27)
[2024-02-10] MEDS: FUROSEMIDE 40 MG TAB PO ONE (16:10)
[2024-02-10 16:11] VITALS: BP 139/84
[2024-02-10 16:22] VITALS: O2SAT 98
[2024-02-10 20:00] VITALS: BP 126/68; TEMP 97.3; O2SAT 94
[2024-02-10 20:15] VITALS: O2SAT 94
[2024-02-11 04:34] VITALS: BP 125/70; TEMP 97.5; O2SAT 93
[2024-02-11] MEDS: FUROSEMIDE 20 MG TAB PO SCH (09:09)
[2024-02-11 11:38] LABS: IONIZED CALCIUM 4.3 MG/DL (4.5-5.3)
[2024-02-11 12:00] VITALS: BP 118/69; TEMP 97.3; O2SAT 91
[2024-02-11] MEDS: MEGESTROL 400MG 10ML SUSP ORAL SYRINGE *DRAW UP EXACT DOSE PO SCH (12:21)
[2024-02-11 12:24] LABS: BLOOD UREA NITROGEN 19 MG/DL (9-23); CALCIUM LEVEL 9.8 MG/DL (8.3-10.6); CARBON DIOXIDE LEVEL > 40.0 MMOL/L (20-31); CHLORIDE LEVEL 82 MMOL/L (98-107); CREATININE FOR GFR 0.71 MG/DL (0.55-1.30); GLOMERULAR FILTRATION RATE > 60.0 (>39); GLUCOSE, FASTING 170 MG/DL (74-106); MAGNESIUM LEVEL 1.8 MG/DL (1.8-2.4); POTASSIUM SERUM 2.8 MMOL/L (3.5-5.1); SODIUM LEVEL 136 MMOL/L (136-145)
[2024-02-11] MEDS: POTASSIUM CHLORIDE 10MEQ SR TABLET PO SCH (13:19)
[2024-02-11] MEDS: MAG SULF 1GM/100ML (MAG RUN) 1 GM in IV 1 EA IV SCH (13:19)
[2024-02-11] MEDS: CALCIUM GLUCONATE 1,000 MG in DEXTROSE 5% (D5W) MINI-BAG PLU 100 ML IV ONE (15:25)
[2024-02-12 04:00] VITALS: BP 126/77; TEMP 97.2; O2SAT 97
[2024-02-12 16:06] LABS: IONIZED CALCIUM 4.2 MG/DL (4.5-5.3)
[2024-02-12 16:49] LABS: BLOOD UREA NITROGEN 16 MG/DL (9-23); CALCIUM LEVEL 9.4 MG/DL (8.3-10.6); CARBON DIOXIDE LEVEL > 40.0 MMOL/L (20-31); CHLORIDE LEVEL 81 MMOL/L (98-107); CREATININE FOR GFR 0.64 MG/DL (0.55-1.30); GLOMERULAR FILTRATION RATE > 60.0 (>39); GLUCOSE, FASTING 161 MG/DL (74-106); MAGNESIUM LEVEL 1.8 MG/DL (1.8-2.4); POTASSIUM SERUM 2.6 MMOL/L (3.5-5.1); SODIUM LEVEL 134 MMOL/L (136-145)
[2024-02-12] MEDS: POTASSIUM CHLORIDE 10MEQ SR TABLET PO SCH (17:37)
[2024-02-12] MEDS: CALCIUM/VITAMIN D 500 MG TAB PO ONE (17:37)
[2024-02-12] MEDS: MAGNESIUM OXIDE 400MG TAB (MAG-OX) PO SCH (20:00)
[2024-02-13 04:00] VITALS: BP 152/71; TEMP 97.5; O2SAT 87
[2024-02-13 06:04] LABS: IONIZED CALCIUM 4.4 MG/DL (4.5-5.3)
[2024-02-13 06:15] LABS: HEMATOCRIT 35.4 % (36.0-47.0); HEMOGLOBIN 11.3 g/dl (12.0-15.5); MEAN CORPUSCULAR HGB CONC 31.9 g/dl (32.0-36.5); MEAN CORPUSCULAR VOLUME 93.9 fl (80.0-96.0); PLATELET COUNT, AUTOMATED 147 10^3/uL (150-450); RED BLOOD COUNT 3.77 10^6/uL (4.00-5.40); WHITE BLOOD COUNT 7.7 10^3/uL (4.0-10.0)
[2024-02-13 06:43] LABS: BLOOD UREA NITROGEN 15 MG/DL (9-23); CALCIUM LEVEL 9.6 MG/DL (8.3-10.6); CARBON DIOXIDE LEVEL > 40.0 MMOL/L (20-31); CHLORIDE LEVEL 88 MMOL/L (98-107); CREATININE FOR GFR 0.63 MG/DL (0.55-1.30); GLOMERULAR FILTRATION RATE > 60.0 (>39); GLUCOSE, FASTING 99 MG/DL (74-106); POTASSIUM SERUM 3.7 MMOL/L (3.5-5.1); SODIUM LEVEL 137 MMOL/L (136-145)
[2024-02-13 08:26] VITALS: BP 148/74; TEMP 97.7; O2SAT 100
[2024-02-13] MEDS: POTASSIUM CHLORIDE 10MEQ SR TABLET PO SCH (08:29)
[2024-02-13] MEDS ORDERED: CALCIUM/VITAMIN D 500 MG TAB PO SCH (09:00)
[2024-02-13 22:41] VITALS: O2SAT 93
[2024-02-14 04:40] VITALS: BP 142/78; TEMP 97.5; O2SAT 93
[2024-02-15 04:00] VITALS: BP 150/85; TEMP 97.3; O2SAT 93
[2024-02-16 00:41] LABS: ALBUMIN 2.8 G/DL (3.2-5.2); ALKALINE PHOSPHATASE 113 U/L (35-104); ALT/SGPT < 9 U/L (7.0-40); AST/SGOT 16 U/L (<34); BILIRUBIN,TOTAL 0.5 MG/DL (0.3-1.2); BLOOD UREA NITROGEN 20 MG/DL (9-23); CALCIUM LEVEL 8.9 MG/DL (8.3-10.6); CARBON DIOXIDE LEVEL 30 MMOL/L (20-31); CHLORIDE LEVEL 99 MMOL/L (98-107); CREATININE FOR GFR 0.82 MG/DL (0.55-1.30); GLOMERULAR FILTRATION RATE > 60.0 (>39); GLUCOSE, FASTING 127 MG/DL (74-106); POTASSIUM SERUM 4.6 MMOL/L (3.5-5.1); SODIUM LEVEL 135 MMOL/L (136-145); TOTAL PROTEIN 6.7 G/DL (5.7-8.2)
[2024-02-16 00:43] LABS: BASO % 0.4 % (0.0-1.0); EOS # 0.1 10^3/uL (0.0-0.5); EOS % 1.5 % (0.0-3.0); HEMATOCRIT 33.7 % (36.0-47.0); HEMOGLOBIN 10.6 g/dl (12.0-15.5); LYMPH # 0.8 10^3/uL (1.5-5.0); LYMPH % 9.8 % (24.0-44.0); MEAN CORPUSCULAR HEMOGLOBIN 29.4 pg (27.0-33.0); MEAN CORPUSCULAR HGB CONC 31.5 g/dl (32.0-36.5); MEAN CORPUSCULAR VOLUME 93.6 fl (80.0-96.0); MONO # 1.1 10^3/uL (0.0-0.8); MONO % 13.3 % (2.0-8.0); NEUTROPHILS # 6.4 10^3/uL (1.5-8.5); NEUTROPHILS % 74.4 % (36.0-66.0); PLATELET COUNT, AUTOMATED 133 10^3/uL (150-450); WHITE BLOOD COUNT 8.6 10^3/uL (4.0-10.0)
[2024-02-16 04:00] VITALS: BP 143/84; TEMP 97.5; O2SAT 86
[2024-02-16] MEDS: POTASSIUM CHLORIDE 10MEQ SR TABLET PO SCH (10:22)
[2024-02-16] MEDS: IBUPROFEN 600MG TAB PO ONE (18:47)
[2024-02-17 04:28] VITALS: BP 114/66; TEMP 97.5; O2SAT 96
[2024-02-17 06:16] LABS: HEMATOCRIT 31.5 % (36.0-47.0); MEAN CORPUSCULAR HEMOGLOBIN 29.9 pg (27.0-33.0); MEAN CORPUSCULAR HGB CONC 31.7 g/dl (32.0-36.5); PLATELET COUNT, AUTOMATED 122 10^3/uL (150-450); RED BLOOD COUNT 3.35 10^6/uL (4.00-5.40); WHITE BLOOD COUNT 8.8 10^3/uL (4.0-10.0)
[2024-02-17 06:41] LABS: BLOOD UREA NITROGEN 23 MG/DL (9-23); CALCIUM LEVEL 8.8 MG/DL (8.3-10.6); CARBON DIOXIDE LEVEL 28 MMOL/L (20-31); CHLORIDE LEVEL 100 MMOL/L (98-107); CREATININE FOR GFR 0.79 MG/DL (0.55-1.30); GLOMERULAR FILTRATION RATE > 60.0 (>39); GLUCOSE, FASTING 95 MG/DL (74-106); POTASSIUM SERUM 3.8 MMOL/L (3.5-5.1); SODIUM LEVEL 135 MMOL/L (136-145)
[2024-02-17] MEDS ORDERED: KETOROLAC 30 MG/ML 1ML VIAL IV ONE (21:10)
[2024-02-17] MEDS: methocarbamoL 500 MG TAB PO PRN (21:42)
[2024-02-17] MEDS: KETOROLAC 30 MG/ML 1ML VIAL IM ONE (22:30)
[2024-02-18 04:19] VITALS: BP 132/75; TEMP 97.2; O2SAT 92
[2024-02-18 07:41] VITALS: O2SAT 92
[2024-02-18] MEDS ORDERED: NITROGLYCERIN 0.4MG SUBL TABLET As Ordered ONE (18:47)
[2024-02-18] MEDS: NITROGLYCERIN 0.4MG SUBL TABLET SL PRN (18:54)
[2024-02-18] MEDS ORDERED: METOPROLOL 5 MG/5 ML VIAL As Ordered ONE (18:57)
[2024-02-18 19:06] VITALS: BP 140/88; TEMP 97.1; O2SAT 91
[2024-02-18] MEDS: METOPROLOL 5 MG/5 ML VIAL IV SCH (19:18)
[2024-02-18 19:19] LABS: BASO % 0.3 % (0.0-1.0); EOS # 0.2 10^3/uL (0.0-0.5); EOS % 1.9 % (0.0-3.0); HEMOGLOBIN 11.5 g/dl (12.0-15.5); LYMPH # 0.5 10^3/uL (1.5-5.0); LYMPH % 4.5 % (24.0-44.0); MEAN CORPUSCULAR HEMOGLOBIN 28.8 pg (27.0-33.0); MEAN CORPUSCULAR HGB CONC 31.1 g/dl (32.0-36.5); MEAN CORPUSCULAR VOLUME 92.7 fl (80.0-96.0); MONO # 0.8 10^3/uL (0.0-0.8); MONO % 7.3 % (2.0-8.0); NEUTROPHILS # 9.5 10^3/uL (1.5-8.5); NEUTROPHILS % 85.4 % (36.0-66.0); PLATELET COUNT, AUTOMATED 184 10^3/uL (150-450); RED BLOOD COUNT 3.99 10^6/uL (4.00-5.40); VENOUS BASE EXCESS -3.6 (-2.0-2.0); VENOUS HCO3 20.8 MMOL/L (23.0-27.0); VENOUS O2 SATURATION 99.1 % (60.0-80.0); VENOUS PARTIAL PRESSURE CO2 35.2 mmHg (38.0-50.0); VENOUS PARTIAL PRESSURE O2 207.5 mmHg (30.0-50.0); VENOUS PH 7.389 UNITS (7.330-7.430); VENOUS STANDARD HCO3 21.6 MMOL/L; VENOUS TOTAL CO2 21.9 MMOL/L (24.0-28.0); WHITE BLOOD COUNT 11.1 10^3/uL (4.0-10.0)
[2024-02-18 19:31] LABS: INR 1.41; PARTIAL THROMBOPLASTIN TIME 31.6 SECONDS (24.8-34.2); PROTHROMBIN TIME 17.5 SECONDS (12.5-14.5)
[2024-02-18] MEDS: FUROSEMIDE 40MG/4ML VIAL IV ONE (19:36)
[2024-02-18 19:48] LABS: CPK CREATINE PHOSPHOKINASE 21 U/L (34-145)
[2024-02-18 19:50] LABS: ALBUMIN 2.7 G/DL (3.2-5.2); ALKALINE PHOSPHATASE 121 U/L (35-104); ALT/SGPT 10 U/L (7.0-40); AST/SGOT 17 U/L (<34); BILIRUBIN,TOTAL 0.6 MG/DL (0.3-1.2); BLOOD UREA NITROGEN 23 MG/DL (9-23); CALCIUM LEVEL 8.7 MG/DL (8.3-10.6); CARBON DIOXIDE LEVEL 24 MMOL/L (20-31); CHLORIDE LEVEL 105 MMOL/L (98-107); CK-MB VALUE MASS < 1.0 NG/ML (<3.6); CREATININE FOR GFR 0.61 MG/DL (0.55-1.30); GLOMERULAR FILTRATION RATE > 60.0 (>39); GLUCOSE, FASTING 329 MG/DL (74-106); MB/CK RELATIVE INDEX 4.76 (< OR =4); POTASSIUM SERUM 4.6 MMOL/L (3.5-5.1); SODIUM LEVEL 138 MMOL/L (136-145); TOTAL PROTEIN 7.1 G/DL (5.7-8.2)
[2024-02-18] MEDS: LEVALBUTEROL 1.25MG 0.5ML CONCENTRATE NEB INH SCH (20:00)
[2024-02-18] MEDS: PIPERACILLIN/TAZOBACTAM SOD 4.5 GM in DEXTROSE 5% (D5W) ADV/MINI-BAG 50 ML IV SCH (22:02)
[2024-02-18 23:53] VITALS: BP 104/77; TEMP 98.2; O2SAT 99
[2024-02-19] VITALS (8 sets, daily range): BP systolic 104–116; BP diastolic 55–77; TEMP 97.2–98.3; O2SAT 92–98
[2024-02-19 01:04] LABS: HEMATOCRIT 33.7 % (36.0-47.0); HEMOGLOBIN 10.6 g/dl (12.0-15.5); MEAN CORPUSCULAR HEMOGLOBIN 28.8 pg (27.0-33.0); MEAN CORPUSCULAR HGB CONC 31.5 g/dl (32.0-36.5); MEAN CORPUSCULAR VOLUME 91.6 fl (80.0-96.0); PLATELET COUNT, AUTOMATED 157 10^3/uL (150-450); RED BLOOD COUNT 3.68 10^6/uL (4.00-5.40); WHITE BLOOD COUNT 9.8 10^3/uL (4.0-10.0)
[2024-02-19 01:23] LABS: INR 1.36; PARTIAL THROMBOPLASTIN TIME 32.1 SECONDS (24.8-34.2); PROTHROMBIN TIME 17.1 SECONDS (12.5-14.5)
[2024-02-19 01:29] LABS: ALBUMIN 2.7 G/DL (3.2-5.2); ALKALINE PHOSPHATASE 109 U/L (35-104); ALT/SGPT 11 U/L (7.0-40); AST/SGOT 20 U/L (<34); BILIRUBIN,TOTAL 0.6 MG/DL (0.3-1.2); BLOOD UREA NITROGEN 19 MG/DL (9-23); CALCIUM LEVEL 8.7 MG/DL (8.3-10.6); CARBON DIOXIDE LEVEL 27 MMOL/L (20-31); CHLORIDE LEVEL 103 MMOL/L (98-107); CREATININE FOR GFR 0.64 MG/DL (0.55-1.30); GLOMERULAR FILTRATION RATE > 60.0 (>39); GLUCOSE, FASTING 195 MG/DL (74-106); MAGNESIUM LEVEL 1.9 MG/DL (1.8-2.4); PHOSPHORUS LEVEL 3.2 MG/DL (2.4-5.1); POTASSIUM SERUM 3.4 MMOL/L (3.5-5.1); SODIUM LEVEL 137 MMOL/L (136-145); TOTAL PROTEIN 6.6 G/DL (5.7-8.2)
[2024-02-19] MEDS: MORPHINE 2 MG/ML 1ML VIAL IV ONE (02:00)
[2024-02-19] MEDS: ENOXAPARIN 80MG/0.8ML SYRINGE (J1650 PER 10MG) SC SCH (09:44)
[2024-02-19] MEDS ORDERED: FUROSEMIDE 100MG/10ML VIAL IV SCH (11:05)
[2024-02-19] MEDS: FUROSEMIDE injection 100 MG, VIAL 2 BAG 13MM ADAPTER 1 EACH in D5W 100 ML IV SCH (12:16)
[2024-02-19 12:40] LABS: PROCALCITONIN 0.14 ng/ml
[2024-02-19] MEDS: METOPROLOL TART 50 MG TAB PO ONE (15:33)
[2024-02-19] MEDS ORDERED: METOPROLOL TART 25 MG TABLET PO SCH ×2 (18:00→21:00)
[2024-02-19] MEDS ORDERED: METOPROLOL TART 50 MG TAB PO SCH (18:00)
[2024-02-19] MEDS: METOPROLOL TART 25 MG TABLET PO SCH (21:32)
[2024-02-19] MEDS: DOCUSATE SODIUM 100MG CAPSULE PO PRN (21:33)
[2024-02-20] VITALS (8 sets, daily range): BP systolic 102–152; BP diastolic 63–97; TEMP 96.8–98.2; O2SAT 93–95
[2024-02-20 07:59] LABS: HEMATOCRIT 33.1 % (36.0-47.0); HEMOGLOBIN 10.6 g/dl (12.0-15.5); MEAN CORPUSCULAR HEMOGLOBIN 29.4 pg (27.0-33.0); MEAN CORPUSCULAR VOLUME 91.7 fl (80.0-96.0); PLATELET COUNT, AUTOMATED 166 10^3/uL (150-450); RED BLOOD COUNT 3.61 10^6/uL (4.00-5.40); WHITE BLOOD COUNT 9.4 10^3/uL (4.0-10.0)
[2024-02-20 08:25] LABS: BLOOD UREA NITROGEN 17 MG/DL (9-23); CALCIUM LEVEL 8.3 MG/DL (8.3-10.6); CARBON DIOXIDE LEVEL 34 MMOL/L (20-31); CHLORIDE LEVEL 97 MMOL/L (98-107); CREATININE FOR GFR 0.68 MG/DL (0.55-1.30); GLOMERULAR FILTRATION RATE > 60.0 (>39); GLUCOSE, FASTING 105 MG/DL (74-106); POTASSIUM SERUM 2.3 MMOL/L (3.5-5.1); SODIUM LEVEL 139 MMOL/L (136-145)
[2024-02-20 09:25] LABS: MAGNESIUM LEVEL 1.8 MG/DL (1.8-2.4)
[2024-02-20] MEDS: METOPROLOL TART 50 MG TAB PO SCH (09:34)
[2024-02-20] MEDS: KCL 10MEQ/100ML SWI (KRUN) 10 MEQ in IV 1 EA IV SCH (09:38)
[2024-02-20] MEDS: POTASSIUM CHLORIDE 10MEQ SR TABLET PO SCH (11:53)
[2024-02-20] MEDS: MAG SULF 1GM/100ML (MAG RUN) 1 GM in IV 1 EA IV SCH (13:08)
[2024-02-20] MEDS: FUROSEMIDE injection 100 MG, VIAL 2 BAG 13MM ADAPTER 1 EACH in D5W 100 ML IV SCH (16:24)
[2024-02-20 17:37] LABS: HEMATOCRIT 34.6 % (36.0-47.0); HEMOGLOBIN 10.9 g/dl (12.0-15.5); MEAN CORPUSCULAR HGB CONC 31.5 g/dl (32.0-36.5); PLATELET COUNT, AUTOMATED 181 10^3/uL (150-450); RED BLOOD COUNT 3.76 10^6/uL (4.00-5.40); WHITE BLOOD COUNT 9.1 10^3/uL (4.0-10.0)
[2024-02-20 18:11] LABS: BLOOD UREA NITROGEN 16 MG/DL (9-23); CARBON DIOXIDE LEVEL 34 MMOL/L (20-31); CHLORIDE LEVEL 102 MMOL/L (98-107); CREATININE FOR GFR 0.71 MG/DL (0.55-1.30); GLOMERULAR FILTRATION RATE > 60.0 (>39); GLUCOSE, FASTING 156 MG/DL (74-106); MAGNESIUM LEVEL 2.8 MG/DL (1.8-2.4); POTASSIUM SERUM 4.8 MMOL/L (3.5-5.1); SODIUM LEVEL 139 MMOL/L (136-145)
[2024-02-20] MEDS: ENOXAPARIN 60MG/0.6ML SYRINGE (J1650 PER 10MG) SC SCH (21:10)
[2024-02-21 03:42] VITALS: BP 105/62; TEMP 98.2; O2SAT 94
[2024-02-21 07:24] LABS: HEMATOCRIT 33.2 % (36.0-47.0); HEMOGLOBIN 10.6 g/dl (12.0-15.5); MEAN CORPUSCULAR HEMOGLOBIN 29.8 pg (27.0-33.0); MEAN CORPUSCULAR HGB CONC 31.9 g/dl (32.0-36.5); MEAN CORPUSCULAR VOLUME 93.3 fl (80.0-96.0); PLATELET COUNT, AUTOMATED 172 10^3/uL (150-450); RED BLOOD COUNT 3.56 10^6/uL (4.00-5.40); WHITE BLOOD COUNT 7.4 10^3/uL (4.0-10.0)
[2024-02-21 07:40] VITALS: BP 117/58; TEMP 97; O2SAT 96
[2024-02-21 07:40] LABS: BLOOD UREA NITROGEN 16 MG/DL (9-23); CALCIUM LEVEL 8.4 MG/DL (8.3-10.6); CARBON DIOXIDE LEVEL 35 MMOL/L (20-31); CHLORIDE LEVEL 99 MMOL/L (98-107); CREATININE FOR GFR 0.64 MG/DL (0.55-1.30); GLOMERULAR FILTRATION RATE > 60.0 (>39); GLUCOSE, FASTING 101 MG/DL (74-106); MAGNESIUM LEVEL 2.2 MG/DL (1.8-2.4); POTASSIUM SERUM 3.1 MMOL/L (3.5-5.1); SODIUM LEVEL 142 MMOL/L (136-145)
[2024-02-21] MEDS ORDERED: POTASSIUM CHLORIDE 10MEQ SR TABLET PO ONE (09:00)
[2024-02-21 09:02] LABS: PROCALCITONIN 0.18 ng/ml
[2024-02-21] MEDS: METAMUCIL (PSYLLIUM) PACKET PO SCH (09:06)
[2024-02-21] MEDS: POTASSIUM CHLORIDE 10MEQ SR TABLET PO SCH (09:10)
[2024-02-21] MEDS: POTASSIUM CHLORIDE 10MEQ SR TABLET PO ONE (11:35)
[2024-02-21 12:00] VITALS: BP 113/65; TEMP 97.1; O2SAT 96
[2024-02-21 15:57] VITALS: BP 115/72; TEMP 97.3; O2SAT 100
[2024-02-21] MEDS: METOPROLOL TART 50 MG TAB PO SCH (16:01)
[2024-02-21 18:45] LABS: BLOOD UREA NITROGEN 14 MG/DL (9-23); CARBON DIOXIDE LEVEL 40 MMOL/L (20-31); CHLORIDE LEVEL 100 MMOL/L (98-107); CREATININE FOR GFR 0.66 MG/DL (0.55-1.30); GLOMERULAR FILTRATION RATE > 60.0 (>39); GLUCOSE, FASTING 92 MG/DL (74-106); MAGNESIUM LEVEL 1.9 MG/DL (1.8-2.4); POTASSIUM SERUM 3.6 MMOL/L (3.5-5.1); SODIUM LEVEL 141 MMOL/L (136-145)
[2024-02-21 19:40] VITALS: BP 102/63; TEMP 97.8; O2SAT 97
[2024-02-21 23:33] VITALS: BP 109/60; TEMP 97.6; O2SAT 60
[2024-02-22] VITALS (28 sets, daily range): BP systolic 98–138; BP diastolic 60–71; TEMP 97.2–97.6; O2SAT 89–100
[2024-02-22 06:12] LABS: HEMATOCRIT 32.7 % (36.0-47.0); HEMOGLOBIN 10.1 g/dl (12.0-15.5); MEAN CORPUSCULAR HEMOGLOBIN 28.2 pg (27.0-33.0); MEAN CORPUSCULAR HGB CONC 30.9 g/dl (32.0-36.5); MEAN CORPUSCULAR VOLUME 91.3 fl (80.0-96.0); PLATELET COUNT, AUTOMATED 186 10^3/uL (150-450); RED BLOOD COUNT 3.58 10^6/uL (4.00-5.40); WHITE BLOOD COUNT 7.2 10^3/uL (4.0-10.0)
[2024-02-22 06:43] LABS: BLOOD UREA NITROGEN 14 MG/DL (9-23); CALCIUM LEVEL 8.3 MG/DL (8.3-10.6); CARBON DIOXIDE LEVEL 39 MMOL/L (20-31); CHLORIDE LEVEL 97 MMOL/L (98-107); CREATININE FOR GFR 0.66 MG/DL (0.55-1.30); GLOMERULAR FILTRATION RATE > 60.0 (>39); GLUCOSE, FASTING 103 MG/DL (74-106); MAGNESIUM LEVEL 1.8 MG/DL (1.8-2.4); POTASSIUM SERUM 3.2 MMOL/L (3.5-5.1); SODIUM LEVEL 143 MMOL/L (136-145)
[2024-02-22] MEDS: MAG SULF 1GM/100ML (MAG RUN) 1 GM in IV 1 EA IV SCH (09:00)
[2024-02-22] MEDS: APIXABAN 5 MG TAB (ELIQUIS) PO SCH (09:45)
[2024-02-22] MEDS: POTASSIUM CHLORIDE 10MEQ SR TABLET PO ONE (09:45)
[2024-02-22] MEDS: FUROSEMIDE 40MG/4ML VIAL IV SCH (16:31)
[2024-02-22 19:10] LABS: BLOOD UREA NITROGEN 16 MG/DL (9-23); CARBON DIOXIDE LEVEL 36 MMOL/L (20-31); CHLORIDE LEVEL 96 MMOL/L (98-107); CREATININE FOR GFR 0.72 MG/DL (0.55-1.30); GLOMERULAR FILTRATION RATE > 60.0 (>39); GLUCOSE, FASTING 148 MG/DL (74-106); MAGNESIUM LEVEL 2.4 MG/DL (1.8-2.4); POTASSIUM SERUM 3.1 MMOL/L (3.5-5.1); SODIUM LEVEL 139 MMOL/L (136-145)
[2024-02-23] VITALS (17 sets, daily range): BP systolic 80–125; BP diastolic 52–91; TEMP 97.8–98.2; O2SAT 90–100
[2024-02-23] MEDS: POTASSIUM CHLORIDE 10MEQ SR TABLET PO ONE (00:13)
[2024-02-23 05:20] LABS: HEMATOCRIT 32.7 % (36.0-47.0); HEMOGLOBIN 10.5 g/dl (12.0-15.5); MEAN CORPUSCULAR HEMOGLOBIN 29.1 pg (27.0-33.0); MEAN CORPUSCULAR HGB CONC 32.1 g/dl (32.0-36.5); MEAN CORPUSCULAR VOLUME 90.6 fl (80.0-96.0); PLATELET COUNT, AUTOMATED 202 10^3/uL (150-450); RED BLOOD COUNT 3.61 10^6/uL (4.00-5.40); WHITE BLOOD COUNT 7.2 10^3/uL (4.0-10.0)
[2024-02-23 05:47] LABS: BLOOD UREA NITROGEN 22 MG/DL (9-23); CALCIUM LEVEL 8.8 MG/DL (8.3-10.6); CARBON DIOXIDE LEVEL 33 MMOL/L (20-31); CHLORIDE LEVEL 100 MMOL/L (98-107); CREATININE FOR GFR 0.79 MG/DL (0.55-1.30); GLOMERULAR FILTRATION RATE > 60.0 (>39); GLUCOSE, FASTING 117 MG/DL (74-106); MAGNESIUM LEVEL 2.4 MG/DL (1.8-2.4); POTASSIUM SERUM 3.5 MMOL/L (3.5-5.1); SODIUM LEVEL 141 MMOL/L (136-145)
[2024-02-23] MEDS: TORSEMIDE 10 MG TABLET PO SCH (09:08)
[2024-02-23] MEDS: METOPROLOL TART 50 MG TAB PO SCH (09:24)
[2024-02-23 18:54] LABS: BLOOD UREA NITROGEN 24 MG/DL (9-23); CALCIUM LEVEL 8.6 MG/DL (8.3-10.6); CARBON DIOXIDE LEVEL 31 MMOL/L (20-31); CHLORIDE LEVEL 103 MMOL/L (98-107); CREATININE FOR GFR 0.77 MG/DL (0.55-1.30); GLOMERULAR FILTRATION RATE > 60.0 (>39); GLUCOSE, FASTING 171 MG/DL (74-106); POTASSIUM SERUM 4.9 MMOL/L (3.5-5.1); SODIUM LEVEL 141 MMOL/L (136-145)
[2024-02-24] VITALS (19 sets, daily range): BP systolic 104–125; BP diastolic 62–80; TEMP 97.2–98.6; O2SAT 94–98
[2024-02-24 07:48] LABS: HEMOGLOBIN 10.2 g/dl (12.0-15.5); MEAN CORPUSCULAR HEMOGLOBIN 28.7 pg (27.0-33.0); MEAN CORPUSCULAR HGB CONC 30.9 g/dl (32.0-36.5); PLATELET COUNT, AUTOMATED 191 10^3/uL (150-450); RED BLOOD COUNT 3.55 10^6/uL (4.00-5.40); WHITE BLOOD COUNT 7.7 10^3/uL (4.0-10.0)
[2024-02-24 08:17] LABS: BLOOD UREA NITROGEN 22 MG/DL (9-23); CALCIUM LEVEL 9.4 MG/DL (8.3-10.6); CARBON DIOXIDE LEVEL 32 MMOL/L (20-31); CHLORIDE LEVEL 104 MMOL/L (98-107); CREATININE FOR GFR 0.72 MG/DL (0.55-1.30); GLOMERULAR FILTRATION RATE > 60.0 (>39); GLUCOSE, FASTING 106 MG/DL (74-106); POTASSIUM SERUM 4.8 MMOL/L (3.5-5.1); SODIUM LEVEL 142 MMOL/L (136-145)
[2024-02-24] MEDS: FUROSEMIDE injection 100 MG, VIAL 2 BAG 13MM ADAPTER 1 EACH in D5W 100 ML IV SCH (08:49)
[2024-02-24] MEDS ORDERED: TORSEMIDE 20 MG TAB PO SCH (09:00)
[2024-02-24 18:21] LABS: BLOOD UREA NITROGEN 20 MG/DL (9-23); CALCIUM LEVEL 8.3 MG/DL (8.3-10.6); CARBON DIOXIDE LEVEL 30 MMOL/L (20-31); CHLORIDE LEVEL 101 MMOL/L (98-107); CREATININE FOR GFR 0.64 MG/DL (0.55-1.30); GLOMERULAR FILTRATION RATE > 60.0 (>39); GLUCOSE, FASTING 146 MG/DL (74-106); POTASSIUM SERUM 3.1 MMOL/L (3.5-5.1); SODIUM LEVEL 141 MMOL/L (136-145)
[2024-02-24] MEDS: FUROSEMIDE injection 100 MG, VIAL 2 BAG 13MM ADAPTER 1 EACH in NS 100 ML IV SCH (19:00)
[2024-02-24 20:10] LABS: MAGNESIUM LEVEL 1.9 MG/DL (1.8-2.4)
[2024-02-24] MEDS: POTASSIUM CHLORIDE 10MEQ SR TABLET PO ONE (20:10)
[2024-02-24] MEDS: KCL 10MEQ/100ML SWI (KRUN) 10 MEQ in IV 1 EA IV SCH (20:11)
[2024-02-25 03:36] VITALS: BP 118/79; TEMP 97.5; O2SAT 95
[2024-02-25 05:22] LABS: HEMATOCRIT 33.4 % (36.0-47.0); HEMOGLOBIN 10.6 g/dl (12.0-15.5); MEAN CORPUSCULAR HGB CONC 31.7 g/dl (32.0-36.5); MEAN CORPUSCULAR VOLUME 91.3 fl (80.0-96.0); PLATELET COUNT, AUTOMATED 175 10^3/uL (150-450); RED BLOOD COUNT 3.66 10^6/uL (4.00-5.40); WHITE BLOOD COUNT 7.8 10^3/uL (4.0-10.0)
[2024-02-25 05:49] LABS: BLOOD UREA NITROGEN 16 MG/DL (9-23); CALCIUM LEVEL 8.2 MG/DL (8.3-10.6); CARBON DIOXIDE LEVEL 32 MMOL/L (20-31); CHLORIDE LEVEL 100 MMOL/L (98-107); CREATININE FOR GFR 0.65 MG/DL (0.55-1.30); GLOMERULAR FILTRATION RATE > 60.0 (>39); GLUCOSE, FASTING 97 MG/DL (74-106); POTASSIUM SERUM 3.1 MMOL/L (3.5-5.1); SODIUM LEVEL 141 MMOL/L (136-145)
[2024-02-25 08:02] LABS: MAGNESIUM LEVEL 1.9 MG/DL (1.8-2.4)
[2024-02-25] MEDS: POTASSIUM CHLORIDE 10MEQ SR TABLET PO ONE (08:30)
[2024-02-25] MEDS: POTASSIUM CHLORIDE 10MEQ SR TABLET PO SCH (09:22)
[2024-02-25 12:00] VITALS: BP 110/67; TEMP 97.8; O2SAT 91
[2024-02-25] MEDS: MAG SULF 1GM/100ML (MAG RUN) 1 GM in IV 1 EA IV SCH (12:52)
[2024-02-25 18:50] LABS: BLOOD UREA NITROGEN 14 MG/DL (9-23); CALCIUM LEVEL 8.8 MG/DL (8.3-10.6); CARBON DIOXIDE LEVEL 31 MMOL/L (20-31); CHLORIDE LEVEL 97 MMOL/L (98-107); CREATININE FOR GFR 0.69 MG/DL (0.55-1.30); GLOMERULAR FILTRATION RATE > 60.0 (>39); GLUCOSE, FASTING 119 MG/DL (74-106); MAGNESIUM LEVEL 2.6 MG/DL (1.8-2.4); POTASSIUM SERUM 3.6 MMOL/L (3.5-5.1); SODIUM LEVEL 137 MMOL/L (136-145)
[2024-02-25 20:57] VITALS: BP 134/74; TEMP 97.3; O2SAT 97
[2024-02-26 05:36] VITALS: BP 123/74; TEMP 97.7; O2SAT 97
[2024-02-26 06:48] LABS: HEMATOCRIT 34.5 % (36.0-47.0); HEMOGLOBIN 10.6 g/dl (12.0-15.5); MEAN CORPUSCULAR HEMOGLOBIN 28.8 pg (27.0-33.0); MEAN CORPUSCULAR HGB CONC 30.7 g/dl (32.0-36.5); MEAN CORPUSCULAR VOLUME 93.8 fl (80.0-96.0); PLATELET COUNT, AUTOMATED 179 10^3/uL (150-450); RED BLOOD COUNT 3.68 10^6/uL (4.00-5.40); WHITE BLOOD COUNT 6.3 10^3/uL (4.0-10.0)
[2024-02-26 07:21] LABS: BLOOD UREA NITROGEN 16 MG/DL (9-23); CARBON DIOXIDE LEVEL 31 MMOL/L (20-31); CHLORIDE LEVEL 100 MMOL/L (98-107); CREATININE FOR GFR 0.74 MG/DL (0.55-1.30); GLOMERULAR FILTRATION RATE > 60.0 (>39); GLUCOSE, FASTING 103 MG/DL (74-106); MAGNESIUM LEVEL 2.4 MG/DL (1.8-2.4); POTASSIUM SERUM 3.7 MMOL/L (3.5-5.1); SODIUM LEVEL 140 MMOL/L (136-145)
[2024-02-26] MEDS: FUROSEMIDE 40 MG TAB PO SCH (18:18)
[2024-02-26 18:45] LABS: BLOOD UREA NITROGEN 22 MG/DL (9-23); CALCIUM LEVEL 8.9 MG/DL (8.3-10.6); CARBON DIOXIDE LEVEL 29 MMOL/L (20-31); CHLORIDE LEVEL 100 MMOL/L (98-107); CREATININE FOR GFR 0.74 MG/DL (0.55-1.30); GLOMERULAR FILTRATION RATE > 60.0 (>39); GLUCOSE, FASTING 114 MG/DL (74-106); MAGNESIUM LEVEL 2.2 MG/DL (1.8-2.4); POTASSIUM SERUM 4.1 MMOL/L (3.5-5.1); SODIUM LEVEL 139 MMOL/L (136-145)
[2024-02-26] MEDS: POTASSIUM CHLORIDE 10MEQ SR TABLET PO SCH (21:08)
[2024-02-27 03:23] VITALS: BP 128/72; TEMP 98.1; O2SAT 96
[2024-02-27 06:19] LABS: BLOOD UREA NITROGEN 25 MG/DL (9-23); CALCIUM LEVEL 8.9 MG/DL (8.3-10.6); CARBON DIOXIDE LEVEL 30 MMOL/L (20-31); CHLORIDE LEVEL 101 MMOL/L (98-107); CREATININE FOR GFR 0.67 MG/DL (0.55-1.30); GLOMERULAR FILTRATION RATE > 60.0 (>39); GLUCOSE, FASTING 114 MG/DL (74-106); MAGNESIUM LEVEL 2.2 MG/DL (1.8-2.4); SODIUM LEVEL 141 MMOL/L (136-145)
[2024-02-27 19:50] LABS: BLOOD UREA NITROGEN 25 MG/DL (9-23); CALCIUM LEVEL 8.3 MG/DL (8.3-10.6); CARBON DIOXIDE LEVEL 29 MMOL/L (20-31); CHLORIDE LEVEL 103 MMOL/L (98-107); CREATININE FOR GFR 0.62 MG/DL (0.55-1.30); GLOMERULAR FILTRATION RATE > 60.0 (>39); GLUCOSE, FASTING 110 MG/DL (74-106); MAGNESIUM LEVEL 2.1 MG/DL (1.8-2.4); POTASSIUM SERUM 3.7 MMOL/L (3.5-5.1); SODIUM LEVEL 140 MMOL/L (136-145)
[2024-02-28 04:00] VITALS: BP 152/90; TEMP 97.9; O2SAT 98
[2024-02-28 07:04] LABS: BLOOD UREA NITROGEN 25 MG/DL (9-23); CALCIUM LEVEL 9.2 MG/DL (8.3-10.6); CARBON DIOXIDE LEVEL 29 MMOL/L (20-31); CHLORIDE LEVEL 103 MMOL/L (98-107); CREATININE FOR GFR 0.68 MG/DL (0.55-1.30); GLOMERULAR FILTRATION RATE > 60.0 (>39); GLUCOSE, FASTING 97 MG/DL (74-106); POTASSIUM SERUM 4.2 MMOL/L (3.5-5.1); SODIUM LEVEL 141 MMOL/L (136-145)
[2024-02-28 08:08] VITALS: BP 116/70
[2024-02-28] MEDS ORDERED: MAGN400T2 PO (09:41)
[2024-02-28] MEDS ORDERED: LEVO88TA3 PO (09:41)
[2024-02-28] MEDS ORDERED: POTA-136 PO (09:41)
[2024-02-28] MEDS ORDERED: META1POW PO (09:41)
[2024-02-28] MEDS ORDERED: FURO40TA2 PO (09:41)
== END 2024-02-28 12:39 | DRG 521 ==
LOC: EDBD 16:15 → M ED 16:15 → M ED INP 21:33 → M PCU 22:48 → M MSPAV 01-03 12:45 → M ED INP 02-04 18:15 → M ICU 02-04 18:19 → M PCU 02-05 16:07 → M MSPAV 02-08 14:15 → M PCU 02-18 19:15 → M MSPAV 02-24 21:24
PROVIDERS: ADMIT Internal Medicine; ATTEND Student in an Organized Health Care Education/Training Program
PROC: B246ZZZ Ultrasonography of Right and Left Heart (ICD-10-PCS; 2023-12-30)
PROC: 0SRS0J9 Replacement of Left Hip Joint, Femoral Surface with Synthetic Substitute, Cemented, Open Approach (ICD-10-PCS; principal; 2024-01-02 12:15)
PROC: 0DJ08ZZ Inspection of Upper Intestinal Tract, Via Natural or Artificial Opening Endoscopic (ICD-10-PCS; 2024-01-14)
PROC: 30233N1 Transfusion of Nonautologous Red Blood Cells into Peripheral Vein, Percutaneous Approach (ICD-10-PCS; 2024-01-17)
PROC: 0DJD8ZZ Inspection of Lower Intestinal Tract, Via Natural or Artificial Opening Endoscopic (ICD-10-PCS; 2024-01-20)
DX: S72.002A Fracture of unspecified part of neck of left femur, initial encounter for closed fracture (principal); J15.0 Pneumonia due to Klebsiella pneumoniae; J96.01 Acute respiratory failure with hypoxia; I50.33 Acute on chronic diastolic (congestive) heart failure; J98.11 Atelectasis; E87.1 Hypo-osmolality and hyponatremia; D62 Acute posthemorrhagic anemia; N39.0 Urinary tract infection, site not specified; R45.851 Suicidal ideations; F05 Delirium due to known physiological condition; I25.10 Atherosclerotic heart disease of native coronary artery without angina pectoris; I48.91 Unspecified atrial fibrillation; W18.30XA Fall on same level, unspecified, initial encounter; Y92.018 Other place in single-family (private) house as the place of occurrence of the external cause; Y93.89 Activity, other specified; Y99.8 Other external cause status; E11.42 Type 2 diabetes mellitus with diabetic polyneuropathy; I11.0 Hypertensive heart disease with heart failure; E03.9 Hypothyroidism, unspecified; E78.5 Hyperlipidemia, unspecified; K44.9 Diaphragmatic hernia without obstruction or gangrene; K21.9 Gastro-esophageal reflux disease without esophagitis; Z66 Do not resuscitate; R62.7 Adult failure to thrive; D69.6 Thrombocytopenia, unspecified; K59.09 Other constipation; M48.54XD Collapsed vertebra, not elsewhere classified, thoracic region, subsequent encounter for fracture with routine healing; R26.89 Other abnormalities of gait and mobility; R13.12 Dysphagia, oropharyngeal phase; E87.6 Hypokalemia; F32.A Depression, unspecified; F41.9 Anxiety disorder, unspecified; R32 Unspecified urinary incontinence; F43.25 Adjustment disorder with mixed disturbance of emotions and conduct; I36.0 Nonrheumatic tricuspid (valve) stenosis; I50.813 Acute on chronic right heart failure; E66.9 Obesity, unspecified; M62.838 Other muscle spasm; R07.89 Other chest pain; M41.9 Scoliosis, unspecified; I27.29 Other secondary pulmonary hypertension; D50.9 Iron deficiency anemia, unspecified; K57.30 Diverticulosis of large intestine without perforation or abscess without bleeding; Z95.2 Presence of prosthetic heart valve; Z95.1 Presence of aortocoronary bypass graft; Z99.3 Dependence on wheelchair; Z90.49 Acquired absence of other specified parts of digestive tract; Z79.01 Long term (current) use of anticoagulants; Z79.890 Hormone replacement therapy; Z79.899 Other long term (current) drug therapy; Z68.30 Body mass index [BMI] 30.0-30.9, adult

== ENCOUNTER → 2024-03-09 | Outpatient (CLI) | payer OTHER ==
[~2024-03-09] MED LIST changes: +LEVO88TA3 PO; +MAGN400T2 PO; +META1POW PO; +OXYB-54 PO; +POTA-136 PO; +ROSU20TA86 PO
== END ==
LOC: M SOG 07:53
PROVIDERS: ATTEND Orthopaedic Surgery
DX: S72.002A Fracture of unspecified part of neck of left femur, initial encounter for closed fracture (principal); Z47.89 Encounter for other orthopedic aftercare; Z53.9 Procedure and treatment not carried out, unspecified reason